=== PATIENT | female | born 1945 | race Caucasian/White ===

== ENCOUNTER 2017-12-30 19:28 | Inpatient (IN) | payer MEDICARE, OTHER ==
[~2017-12-30] VITALS: Ht 165.1 cm; Wt 131.1 kg
[2017-12-30] MEDS ORDERED: ACETAMINOPHEN 325 MG TAB PO ONE (20:15)
[2017-12-30] MEDS ORDERED: SODIUM CHLORIDE 0.9% 1000ML 1,000 ML IV ONE (20:15)
[2017-12-30] MEDS ORDERED: CEFTRIAXONE SOD 1 GM VIAL IV ONE (20:15)
--- NOTE | 2017-12-30 22:50 | Diagnostic Imaging Report ---
CHEST SINGLE (PORTABLE), 12/30/2017 8:07 PM Technique: CHEST SINGLE (PORTABLE) Comparison: 05/18/2017 Clinical history: Fever Findings: Stable cardiomediastinal silhouette given mild right rotation. Stable prominent central interstitial markings. No consolidation, pleural effusion or pneumothorax. Chronic left proximal humeral deformity. Impression: Stable chest without acute abnormality. Signed by: Dr Rosalia Chris MD on 12/30/2017 10:46 PM
[2017-12-30 23:38] LABS: BASOPHILS # (AUTO) 0.1 (0.0-0.1); BASOPHILS % 0.4 % (0.0-1.0); EOSINOPHILS % 0.2 % (0.0-6.0); HEMATOCRIT 47.3 % (34.2-44.1); HEMOGLOBIN 15.7 g/dL (12.0-16.0); LYMPHOCYTES # (AUTO) 0.8 (1.0-3.2); LYMPHOCYTES % 5.3 % (18.0-39.1); MEAN CORPUSCULAR HEMOGLOBIN 29.8 pg (28-32); MEAN CORPUSCULAR HGB CONC 33.2 g/dL (31-35); MEAN CORPUSCULAR VOLUME 89.9 fL (81-99); MONOCYTES # (AUTO) 1.4 (0.2-0.8); MONOCYTES % 9.5 % (4.4-11.3); NEUTROPHILS # (AUTO) 12.7 (2.1-6.9); PLATELET COUNT 126 x10e3/uL (140-360); RED BLOOD COUNT 5.26 x10e6/uL (3.6-5.1); RED CELL DISTRIBUTION WIDTH 14.2 % (11.7-14.4)
[2017-12-30 23:56] LABS: ALANINE AMINOTRANSFERASE 29 IU/L (0-55); ALBUMIN 3.5 g/dL (3.5-5.0); ALBUMIN/GLOBULIN RATIO 0.9 (0.8-2.0); ALKALINE PHOSPHATASE 83 IU/L (40-150); ANION GAP 17.1 mmol/L (8-16); BLOOD UREA NITROGEN 20 mg/dL (7-26); BUN/CREATININE RATIO 26 (6-25); CALCIUM 9.9 mg/dL (8.4-10.2); CARBON DIOXIDE 25 mmol/L (22-29); CHLORIDE 101 mmol/L (98-107); CREATINE KINASE 21 IU/L (29-168); CREATININE, SERUM 0.76 mg/dL (0.57-1.11); EST GLOMERULAR FILTRATION RATE > 60 ML/MIN (60-); GLUCOSE 125 mg/dL (74-118); POTASSIUM 4.1 mmol/L (3.5-5.1); SODIUM 139 mmol/L (136-145)
[2017-12-31] MEDS ORDERED: ACETAMINOPHEN 325 MG TAB ONE (00:43)
[2017-12-31] MEDS ORDERED: CEFTRIAXONE SOD 1 GM VIAL ONE (00:43)
[2017-12-31] MEDS ORDERED: TYLENOL325 MG PO (01:03)
[2017-12-31] MEDS ORDERED: DIVALPROEX SOD500 M1 PO (01:03)
[2017-12-31] MEDS ORDERED: ULTRAM50 MG PO (01:03)
[2017-12-31] MEDS ORDERED: LEVOTHYROXINE112 MCG PO (01:03)
[2017-12-31] MEDS ORDERED: CYMBALTA30 MG (01:03)
[2017-12-31] MEDS ORDERED: KLOR-CON M2020 MEQ PO (01:03)
[2017-12-31] MEDS ORDERED: GABAPENTIN300 MG PO (01:03)
[2017-12-31] MEDS ORDERED: FUROSEMIDE40 MG PO (01:03)
[2017-12-31] MEDS ORDERED: DIAZEPAM5 MG PO (01:03)
[2017-12-31] MEDS ORDERED: BENADRYL25 M1 PO (01:03)
[2017-12-31] MEDS ORDERED: LEVSIN0.125 MG PO (01:03)
[2017-12-31] MEDS ORDERED: SODIUM CHLORIDE 0.9% 1000ML 1,000 ML IV ONE (01:15)
[2017-12-31 02:55] LABS: BILIRUBIN,URINE 1+ (NEGATIVE); CLARITY,URINE CLEAR (CLEAR); COLOR,URINE YELLOW (YELLOW); KETONES,URINE 2+ (NEGATIVE); LEUKOCYTE ESTERASE ,URINE TRACE (NEGATIVE); NITRITE,URINE NEGATIVE (NEGATIVE); URINE UROBILINOGEN 12 mg/dL (0.2 - 1)
[2017-12-31 02:57] LABS: PROTEIN,URINE DIPSTICK TRACE (NEGATIVE)
[2017-12-31 03:11] LABS: WBC,URINE (MAN) 0-5 /HPF (0-5)
[2017-12-31 03:12] LABS: BACTERIA,URINE RARE /HPF; EPITHELIAL CELLS,URINE RARE /LPF; RBC,URINE 0-5 /HPF (0-5)
[2017-12-31] MEDS ORDERED: ONDANSETRON HCL INJ 2 MG/ML VIAL IV PRN (03:30)
[2017-12-31] MEDS: PIPER-TAZ 3.375 GM 50 ML IV SCH ×4 (03:30→23:05)
--- OUTSIDE RECORDS SUMMARY | 2017-12-31 03:37 | XMS REPORT ---
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 Allergies, Adverse Reactions, Alerts This patient has no known allergies or adverse reactions. Medications This patient has no known medications. Results Test Description Test Time Test Comments Text Results Atomic Results Result Comments CHEST SINGLE (PORTABLE) [place] [id number] Patient Name: EMORY ANDRES MR #: [id number] : 1945 Age/Sex: 72/F Req #: [id number] Adm Physician: Ordered by: YAMIL OLSON MD Report #: [id number] Location: ER Room/Bed: ___ Procedure: [id number] DX/CHEST SINGLE (PORTABLE) Exam Date: 12/30/17 Exam Time: 2151 REPORT STATUS: Signed CHEST SINGLE (PORTABLE), 12/30/2017 8:07 PM Technique: CHEST SINGLE (PORTABLE) Comparison: 05/18/2017 Clinical history: Fever Findings: Stable cardiomediastinal silhouette given mild right rotation. Stable prominent central interstitial markings. No consolidation, pleural effusion or pneumothorax. Chronic left proximal humeral deformity. Impression: Stable chest without acute abnormality. Signed by: Dr Lesia Chris MD on 12/30/2017 10:46 PM Dictated By: LESIA CHRIS MD 45 Transcribed By: MARK on 12/30 COPY TO: YAMIL OLSON MD
[2017-12-31] MEDS: SODIUM CHLORIDE 0.9% 1000ML 1,000 ML IV SCH ×3 (03:53→23:05)
[2017-12-31] MEDS: VANCOMYCIN 1GM/NS 250 ML 250 ML IV SCH ×2 (03:53→14:49)
[2017-12-31] MEDS: TRAMADOL HCL 50 MG TAB PO SCH (09:00)
[2017-12-31] MEDS: DIAZEPAM 5 MG TAB PO SCH ×3 (09:00→23:05)
[2017-12-31] MEDS: DIPHENHYDRAMINE HCL 25 MG CAP PO SCH (09:00)
[2017-12-31] MEDS: DULOXETINE HCL 30 MG DELAYED RELEASE PO SCH (09:00)
[2017-12-31] MEDS: DEPAKOTE DELAYED-RELEASE TAB 500 MG PO SCH ×2 (09:00→17:10)
[2017-12-31] MEDS: ACETAMINOPHEN 325 MG TAB PO SCH ×3 (09:00→23:05)
[2017-12-31] MEDS: GABAPENTIN 300 MG CAP PO SCH ×2 (09:00→17:10)
[2017-12-31] MEDS: LEVOTHYROXINE SODIUM 25 MCG TABLET PO SCH (09:00)
[2017-12-31] MEDS ORDERED: FUROSEMIDE 40 MG TAB PO SCH (09:00)
[2017-12-31] MEDS: LEVOTHYROXINE SODIUM 112 MCG TAB PO SCH (09:00)
[2017-12-31] MEDS: POTASSIUM CHLORIDE 20 MEQ TAB CR PO SCH (09:01)
[2017-12-31] MEDS: HYOSCYAMINE 0.125 MG TAB PO SCH ×4 (09:07→23:35)
--- NOTE | 2017-12-31 09:24 | History and Physical ---
PRIMARY CARE PHYSICIAN: Unknown CHIEF COMPLAINT: Weakness. HISTORY OF PRESENT ILLNESS: The patient is a very poor historian and unable to provide any history. All history has been obtained from the medical records from the emergency room. This is a 72-year-old woman who developed severe weakness. She felt lightheaded, generalized weakness. The patient has had similar symptoms in the past. Here the patient was found to have leukocytosis, lactic acidosis. She was found to have weakness. She was found to have leukocytosis. She was also found to have left leg redness and history of cellulitis. She is admitted for further evaluation and management. PAST MEDICAL HISTORY: Rheumatoid arthritis, neuropathy, epilepsy, lymphedema, peripheral vascular disease, venous stasis, pneumonia, sepsis, fracture of the humeral neck, urinary tract infection, mental disorder, cerebrovascular accident, morbid obesity, hypothyroidism, Lasix use. PAST SURGICAL HISTORY: Neck surgery. ALLERGIES: PER ELECTRONIC MEDICAL RECORD. FAMILY HISTORY/SOCIAL HISTORY: Unknown. MEDICATIONS: Per electronic medical record. REVIEW OF SYSTEMS: Unobtainable. PHYSICAL EXAMINATION VITAL SIGNS: Have been reviewed. GENERAL: A tired-appearing woman resting in bed. HEENT: Anicteric. CARDIOVASCULAR: Normal S1 and S2. LUNGS: Moderate breath sounds. No wheezing. ABDOMEN: Soft, nontender and nondistended. EXTREMITIES: She has 1+ edema and erythema of the left leg with mild tenderness. SKIN: Dry. PSYCHIATRIC: Flat affect. NEUROLOGIC: Awake but confused. LABS: Reviewed. MEDICATIONS: Reviewed. ASSESSMENT AND PLAN: This is a 72-year-old woman with: 1. Left leg cellulitis: Will treat with antibiotics. Will follow up cultures. 2. Physical deconditioning: Will consult physical therapy. 3. Severe sepsis with leukocytosis, tachycardia, fever, as well as mental status changes: Will treat with antibiotics. Rehydrate and follow up cultures. 4. Epilepsy: Restart home medications. 5. Hypothyroidism: Restart Synthroid. 6. Morbid obesity: Body mass index is 46.8. Will screen for diabetes and obtain a lipid panel. 7. Hyperglycemia: Obtain hemoglobin A1c. 8. Prophylaxis: Use heparin and Pepcid. 9. Disposition: Continue intravenous vancomycin and intravenous Zosyn. Obtain vancomycin trough before the 3rd dose. The patient is also on Lasix orally. Will monitor renal function. Job#: [id number] KASI
[2017-12-31 09:48] LABS: CHOL/HDL RATIO 3.4 (3.0-3.6)
[2017-12-31 21:07] VITALS: BP 143/65
[2017-12-31 22:30] VITALS: BP 143/65
[2018-01-01] MEDS: HYOSCYAMINE 0.125 MG TAB PO SCH ×6 (02:35→21:03)
[2018-01-01] MEDS: TRAMADOL HCL 50 MG TAB PO SCH ×2 (02:38→09:26)
[2018-01-01] MEDS: VANCOMYCIN 1GM/NS 250 ML 250 ML IV SCH ×2 (03:10→15:30)
[2018-01-01] MEDS: SODIUM CHLORIDE 0.9% 1000ML 1,000 ML IV SCH (03:27)
[2018-01-01] MEDS: LEVOTHYROXINE SODIUM 25 MCG TABLET PO SCH (05:37)
[2018-01-01] MEDS: LEVOTHYROXINE SODIUM 112 MCG TAB PO SCH (05:38)
[2018-01-01] MEDS: PIPER-TAZ 3.375 GM 50 ML IV SCH ×3 (05:38→21:03)
[2018-01-01 06:24] LABS: BASOPHILS % 0.3 % (0.0-1.0); EOSINOPHILS # (AUTO) 0.1 (0.0-0.4); EOSINOPHILS % 1.2 % (0.0-6.0); HEMATOCRIT 37.8 % (34.2-44.1); HEMOGLOBIN 12.1 g/dL (12.0-16.0); LYMPHOCYTES # (AUTO) 1.4 (1.0-3.2); LYMPHOCYTES % 21.8 % (18.0-39.1); MEAN CORPUSCULAR HEMOGLOBIN 29.6 pg (28-32); MEAN CORPUSCULAR VOLUME 92.4 fL (81-99); MONOCYTES # (AUTO) 0.9 (0.2-0.8); NEUTROPHILS # (AUTO) 4.1 (2.1-6.9); NEUTROPHILS % 62.1 % (38.7-80.0); PLATELET COUNT 92 x10e3/uL (140-360); RED BLOOD COUNT 4.09 x10e6/uL (3.6-5.1)
[2018-01-01 06:52] LABS: ALANINE AMINOTRANSFERASE 18 IU/L (0-55); ALBUMIN 2.4 g/dL (3.5-5.0); ALBUMIN/GLOBULIN RATIO 0.8 (0.8-2.0); ALKALINE PHOSPHATASE 58 IU/L (40-150); ANION GAP 12.6 mmol/L (8-16); BLOOD UREA NITROGEN 15 mg/dL (7-26); BUN/CREATININE RATIO 25 (6-25); CALCIUM 8.6 mg/dL (8.4-10.2); CARBON DIOXIDE 25 mmol/L (22-29); CHLORIDE 106 mmol/L (98-107); EST GLOMERULAR FILTRATION RATE > 60 ML/MIN (60-); GLUCOSE 99 mg/dL (74-118); POTASSIUM 3.6 mmol/L (3.5-5.1); SODIUM 140 mmol/L (136-145)
[2018-01-01 07:53] VITALS: BP 107/53
--- NOTE | 2018-01-01 08:29 | Progress Note ---
DATE: January 01, 2018 TIME: 7:30 a.m. OVERNIGHT: Feeling a little better. REVIEW OF SYSTEMS: Denies any dizziness. PHYSICAL EXAMINATION VITAL SIGNS: Reviewed. GENERAL: A tired-appearing woman resting in bed. HEENT: Anicteric. CARDIOVASCULAR: Normal S1 and S2. LUNGS: Moderate breath sounds. ABDOMEN: Soft, nontender and nondistended. EXTREMITIES: One to 2+ leg edema bilaterally. Erythema of the left foreleg is improving. SKIN: Dry. PSYCHIATRIC: Flat affect. NEUROLOGICAL: Awake but confused. LABS: Reviewed. MEDICATIONS: Reviewed. ASSESSMENT: A 72-year-old woman with: 1. Left leg cellulitis. 2. Physical deconditioning. 3. Severe sepsis. 4. Epilepsy. 5. Hypothyroidism. 6. Morbid obesity. 7. Hyperglycemia. Hemoglobin A1c 5.4. PLAN 1. Continue antibiotics. 2. Vancomycin trough 7.5. Will continue current regimen. 3. Follow up cultures. 4. Continue Synthroid and other medications. 5. Continue physical therapy. 6. Obtain labs. Job#: [id number] NC
[2018-01-01] MEDS: DIPHENHYDRAMINE HCL 25 MG CAP PO SCH (09:00)
[2018-01-01 09:26] VITALS: BP 107/53
[2018-01-01] MEDS: DULOXETINE HCL 30 MG DELAYED RELEASE PO SCH (09:26)
[2018-01-01] MEDS: DIAZEPAM 5 MG TAB PO SCH ×3 (09:26→20:46)
[2018-01-01] MEDS: GABAPENTIN 300 MG CAP PO SCH ×2 (09:26→16:40)
[2018-01-01] MEDS: DEPAKOTE DELAYED-RELEASE TAB 500 MG PO SCH ×2 (09:26→16:40)
[2018-01-01] MEDS: ACETAMINOPHEN 325 MG TAB PO SCH ×3 (09:26→20:46)
[2018-01-01] MEDS: POTASSIUM CHLORIDE 20 MEQ TAB CR PO SCH (09:36)
[2018-01-01 11:38] VITALS: BP 123/60
[2018-01-01 15:35] VITALS: BP 116/60
[2018-01-01 20:00] VITALS: BP 135/73
[2018-01-01 20:55] VITALS: BP 135/73
[2018-01-01] MEDS ORDERED: DIPHENHYDRAMINE HCL 25 MG CAP PO SCH (21:00)
[2018-01-02 00:46] VITALS: BP 136/73
[2018-01-02] MEDS: HYOSCYAMINE 0.125 MG TAB PO SCH ×3 (02:45→10:00)
[2018-01-02] MEDS: VANCOMYCIN 1GM/NS 250 ML 250 ML IV SCH (03:03)
[2018-01-02] MEDS: TRAMADOL HCL 50 MG TAB PO SCH ×2 (04:24→09:13)
[2018-01-02 05:37] VITALS: BP 149/69
[2018-01-02] MEDS: LEVOTHYROXINE SODIUM 25 MCG TABLET PO SCH (06:27)
[2018-01-02] MEDS: PIPER-TAZ 3.375 GM 50 ML IV SCH (06:27)
[2018-01-02] MEDS: LEVOTHYROXINE SODIUM 112 MCG TAB PO SCH (06:27)
[2018-01-02 07:33] VITALS: BP 144/63
[2018-01-02] MEDS ORDERED: LEVAQUIN500 MG PO (07:55)
[2018-01-02] MEDS ORDERED: MINOCYCLINE HCL50 MG PO (07:55)
[2018-01-02] MEDS: DULOXETINE HCL 30 MG DELAYED RELEASE PO SCH (09:13)
[2018-01-02] MEDS: DIAZEPAM 5 MG TAB PO SCH (09:13)
[2018-01-02] MEDS: POTASSIUM CHLORIDE 20 MEQ TAB CR PO SCH (09:13)
[2018-01-02] MEDS: DEPAKOTE DELAYED-RELEASE TAB 500 MG PO SCH (09:13)
[2018-01-02] MEDS: GABAPENTIN 300 MG CAP PO SCH (09:13)
[2018-01-02] MEDS: ACETAMINOPHEN 325 MG TAB PO SCH (09:13)
[2018-01-02 10:03] VITALS: BP 144/63
[2018-01-02] MEDS ORDERED: HYOSCYAMINE 0.125 MG TAB PO PRN (11:45)
[2018-01-02 12:05] VITALS: BP 133/68
== END 2018-01-02 13:26 | disposition home or self-care (01) | DRG 872 ==
LOC: ER 19:28 → ERHOLD 12-31 03:34 → MED/SURG2 12-31 20:54
PROVIDERS: ADMIT Internal Medicine; ATTEND Internal Medicine
DX: A41.9 Sepsis, unspecified organism (principal); L03.116 Cellulitis of left lower limb; Z68.42 Body mass index [BMI] 45.0-49.9, adult; G40.909 Epilepsy, unspecified, not intractable, without status epilepticus; E66.01 Morbid (severe) obesity due to excess calories; R73.9 Hyperglycemia, unspecified; R65.20 Severe sepsis without septic shock; M06.9 Rheumatoid arthritis, unspecified; Z86.73 Personal history of transient ischemic attack (TIA), and cerebral infarction without residual deficits; E03.9 Hypothyroidism, unspecified; I73.9 Peripheral vascular disease, unspecified
CPT/HCPCS: 36415; 71045; 80053; 80061; 80202; 81001; 82550; 82553; 83036; 83605; 84484; 85025; 87040; 87086; 93005; 97139; 99284; J0696; J2543; J3370; J7030

== ENCOUNTER 2018-01-16 20:16 | Inpatient (IN) | payer MEDICARE, OTHER ==
[~2018-01-16] VITALS: Ht 165.1 cm; Wt 110.7 kg
[~2018-01-16 20:16] MED LIST: BENADRYL25 M1 PO; CYMBALTA30 MG PO; DIAZEPAM5 MG PO; DIVALPROEX SOD500 M1 PO; FUROSEMIDE40 MG PO; GABAPENTIN300 MG PO; KLOR-CON M2020 MEQ PO; LEVAQUIN500 MG PO; LEVOTHYROXINE112 MCG PO; LEVSIN0.125 MG PO; MINOCYCLINE HCL50 MG PO; TYLENOL325 MG PO; ULTRAM50 MG PO
--- OUTSIDE RECORDS SUMMARY | 2018-01-16 20:19 | XMS REPORT | Continuity of Care Document ---
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 No 12/31/17 10:00pm If yes, is advance directive on file with [facility]? No 12/31/17 10:00pm If not on file with [facility] will patient provide a copy? No 12/31/17 10:00pm Do you have a Directive to Physician? No 12/30/17 8:58pm Do you have a Medical Power of Insurance Auditor? No 12/30/17 8:58pm Do you have an out of hospital Do Not Resuscitate Order? No 12/30/17 8:58pm Do you have any special needs we should be aware of? No 12/30/17 8:58pm Do you have a support person here with you today? Yes 12/30/17 8:58pm Did patient receive Notice of Privacy Practices? Yes 12/30/17 8:58pm Did patient receive patient rights and responsibilities? Yes 12/30/17 8:58pm Problems Medical Problem Onset Date Status Cellulitis of left lower leg Unknown Laceration Unknown Acute Medications Current Home Medications Medication Dose Units Route Directions Days Qty Instructions Start Date Acetaminophen (Tylenol*) 325 Mg Tablet 500 Mg Oral Three Times A Day Diazepam 5 Mg Tablet 5 Mg Oral Three Times A Day 30 Tab Diphenhydramine Hcl (Benadryl) 25 Mg Capsule 25 Mg Oral Daily Divalproex Sodium (Divalproex Sodium Er) 500 Mg Tab.er.24h 500 Mg Oral Twice A Day Duloxetine Hcl (Cymbalta) 30 Mg Capsule.dr 60 Mg Daily 30 Cap Furosemide 40 Mg Tablet 40 Mg Oral Daily 30 Tab Gabapentin 300 Mg Capsule 300 Mg Oral Twice A Day 60 Cap Hyoscyamine Sulfate (Levsin) 0.125 Mg Tablet 0.125 Mg Oral Every 4 Hours Levofloxacin (Levaquin) 500 Mg Tablet 500 Mg Oral Daily 7 Days Levothyroxine Sodium 112 Mcg Tablet 137 Mcg Oral Daily 30 Tab Minocycline Hcl 50 Mg Capsule 100 Mg Oral Twice A Day 20 Tab Potassium Chloride (Klor-Con M20) 20 Meq Tabcr 20 Meq Oral Daily Tramadol Hcl (Ultram) 50 Mg Tablet 50 Mg Oral Daily Social History Social History Problem Response Recorded Date/Time Onset Date Status Hx Psychiatric Problems Y - Mental Disorder 12/31/2017 10:00pm Not Applicable Not Applicable Hx Eating Disorder No 12/31/2017 10:00pm Not Applicable Not Applicable Hx Substance Use Disorder No 12/31/2017 10:00pm Not Applicable Not Applicable Hx Depression Yes 12/31/2017 10:00pm Not Applicable Not Applicable Hx Alcohol Use No 12/31/2017 10:00pm Not Applicable Not Applicable Hx Substance Use Treatment No 12/31/2017 10:00pm Not Applicable Not Applicable Hx Physical Abuse No 12/31/2017 10:00pm Not Applicable Not Applicable Smoking Status Start Date Stop Date Never Smoker Hospital Discharge Instructions No hospital discharge instruction information available. Plan of Care Discharge Date 01/02/18 1:26pm Disposition HOME, SELF-CARE Instructions/Education Provided Cellulitis Prescriptions See Medication Section Referrals PCP (Internal Medicine) Order Date: 5-7 Days Entered Date: 01/02/2018 7:55am Functional Status Query Response Date Recorded FUNCTIONAL STATUS . January 01, 2018 12:40pm Assistive Devices Standard Walker December 31, 2017 10:30pm Ambulation Ability Maximum Assistance December 31, 2017 10:30pm Toileting Ability Maximum Assistance January 02, 2018 12:49pm Allergies, Adverse Reactions, Alerts No known allergies. Immunizations No immunization information available. Vital Signs Acute Vital Signs Vital Response Date/Time Temperature (Fahrenheit) 97.2 degrees F (97.6 - 99.5) 01/02/2018 12:05pm Pulse Pulse Rate (adult) 77 bpm (60 - 90) 01/02/2018 12:05pm Respiratory Rate 20 bpm (12 - 24) 01/02/2018 12:05pm Blood Pressure 133/68 mm Hg 01/02/2018 12:05pm Height 5 ft 5 in 12/31/2017 10:00pm Weight 289.03 lb 01/01/2018 5:14am Body Mass Index 48.1 kg/m^2 01/01/2018 5:14am Results Laboratory Results Test Name Result Units Flags Reference Collection Date/Time Result Date/ Time Comments D-Dimer Quantitative (PE/DVT) 1.49 ug/mLFEU H 0.00-0.45 05/18/2017 3: 20pm 05/18/2017 5:07pm As with all in vitro diagnostic tests, the test results should be interpreted by the physician in conjunction with clinical findings and other test results. Test results are reported in NEW D-dimer units(ug/mLFEU). White Blood Count 6.57 x10e3/uL # 4.8-10.8 01/01/2018 6:03am 01/01/2018 6 :53am Red Blood Count 4.09 x10e6/uL 3.6-5.1 01/01/2018 6:03am 01/01/2018 6: 53am Hemoglobin 12.1 g/dL 12.0-16.0 01/01/2018 6:03am 01/01/2018 6:53am Hematocrit 37.8 % 34.2-44.1 01/01/2018 6:03am 01/01/2018 6:53am Mean Corpuscular Volume 92.4 fL 81-99 01/01/2018 6:03am 01/01/2018 6: 53am Mean Corpuscular Hemoglobin 29.6 pg 28-32 01/01/2018 6:03am 01/01/2018 6:53am Mean Corpuscular Hemoglobin Concent 32.0 g/dL 31-35 01/01/2018 6:03am 01/01/2018 6:53am Red Cell Distribution Width 14.0 % 11.7-14.4 01/01/2018 6:03am 2017 6:53am Platelet Count 92 x10e3/uL L 140-360 01/01/2018 6:03am 01/01/2018 6: 53am Neutrophils (%) (Auto) 62.1 % 38.7-80.0 01/01/2018 6:03am 01/01/2018 6: 53am Lymphocytes (%) (Auto) 21.8 % 18.0-39.1 01/01/2018 6:03am 01/01/2018 6: 53am Monocytes (%) (Auto) 14.0 % H 4.4-11.3 01/01/2018 6:03am 01/01/2018 6: 53am Eosinophils (%) (Auto) 1.2 % 0.0-6.0 01/01/2018 6:03am 01/01/2018 6: 53am Basophils (%) (Auto) 0.3 % 0.0-1.0 01/01/2018 6:03am 01/01/2018 6:53am IM GRANULOCYTES % 0.6 % 0.0-1.0 01/01/2018 6:03am 01/01/2018 6:53am Neutrophils # (Auto) 4.1 2.1-6.9 01/01/2018 6:03am 01/01/2018 6:53am Lymphocytes # (Auto) 1.4 1.0-3.2 01/01/2018 6:03am 01/01/2018 6:53am Monocytes # (Auto) 0.9 H 0.2-0.8 01/01/2018 6:03am 01/01/2018 6:53am Eosinophils # (Auto) 0.1 0.0-0.4 01/01/2018 6:03am 01/01/2018 6:53am Basophils # (Auto) 0.0 0.0-0.1 01/01/2018 6:03am 01/01/2018 6:53am Absolute Immature Granulocyte (auto 0.04 x10e3/uL 0-0.1 01/01/2018 6: 03am 01/01/2018 6:53am Urine Color YELLOW YELLOW 12/31/2017 1:00am 12/31/2017 2:57am Urine Clarity CLEAR CLEAR 12/31/2017 1:00am 12/31/2017 2:57am Urine Specific Social Circle 1.010 1.010-1.025 12/31/2017 1:00am 2017 2:57am Urine pH 7 5 - 7 12/31/2017 1:00am 12/31/2017 2:57am Urine Leukocyte Esterase TRACE H NEGATIVE 12/31/2017 1:00am 2017 2:57am Urine Nitrite NEGATIVE NEGATIVE 12/31/2017 1:00am 12/31/2017 2:57am Urine Protein TRACE H NEGATIVE 12/31/2017 1:00am 12/31/2017 2:57am Urine Glucose (UA) NEGATIVE NEGATIVE 12/31/2017 1:00am 12/31/2017 2: 57am Urine Ketones 2+ H NEGATIVE 12/31/2017 1:00am 12/31/2017 2:57am Urine Urobilinogen 12 mg/dL H 0.2 - 1 12/31/2017 1:00am 12/31/2017 2: 57am Urine Bilirubin 1+ H NEGATIVE 12/31/2017 1:00am 12/31/2017 2:57am Urine Blood NEGATIVE NEGATIVE 12/31/2017 1:00am 12/31/2017 2:57am Urine WBC 0-5 /HPF 0-5 12/31/2017 1:00am 12/31/2017 3:12am Urine RBC 0-5 /HPF 0-5 12/31/2017 1:00am 12/31/2017 3:12am Urine Bacteria RARE /HPF NONE 12/31/2017 1:00am 12/31/2017 3:12am Urine Epithelial Cells RARE /LPF NONE 12/31/2017 1:00am 12/31/2017 3: 12am Sodium Level 140 mmol/L 136-145 01/01/2018 6:03am 01/01/2018 6:53am Potassium Level 3.6 mmol/L 3.5-5.1 01/01/2018 6:03am 01/01/2018 6:53am Chloride Level 106 mmol/L 98-107 01/01/2018 6:03am 01/01/2018 6:53am Carbon Dioxide Level 25 mmol/L -01/01/2018 6:03am 01/01/2018 6: 53am Anion Gap 12.6 mmol/L 8-16 01/01/2018 6:03am 01/01/2018 6:53am Blood Urea Nitrogen 15 mg/dL -01/01/2018 6:03am 01/01/2018 6:53am Creatinine 0.60 mg/dL 0.57-1.11 01/01/2018 6:03am 01/01/2018 6:53am BUN/Creatinine Ratio 25 6-01/01/2018 6:03am 01/01/2018 6:53am Estimat Glomerular Filtration Rate > 60 ML/MIN 60- 01/01/2018 6:03am 6:53am Ranges were taken from the National Kidney Disease Education Program and the National Kidney Foundation literature. Reference ranges: 60 or greater: Normal 16-59 (for 3 consecutive months): Chronic kidney disease 15 or less: Kidney failure Glucose Level 99 mg/dL 74-118 01/01/2018 6:03am 01/01/2018 6:53am Calcium Level 8.6 mg/dL 8.4-10.2 01/01/2018 6:03am 01/01/2018 6:53am Hemoglobin A1c Percent 5.4 % 4.0-7.0 12/31/2017 9:15am 12/31/2017 9: 40am Lactic Acid Level 22.8 MG/DL H 4.5-19.8 12/31/2017 3:52am 12/31/2017 4: 28am Total Bilirubin 0.5 mg/dL 0.2-1.2 01/01/2018 6:03am 01/01/2018 6:53am Aspartate Amino Transf (AST/SGOT) 26 IU/L 5-34 01/01/2018 6:03am 2017 6:53am Alanine Aminotransferase (ALT/SGPT) 18 IU/L 0-55 01/01/2018 6:03am 6:53am Total Protein 5.3 g/dL # L 6.5-8.1 01/01/2018 6:03am 01/01/2018 6:53am Albumin 2.4 g/dL L 3.5-5.0 01/01/2018 6:03am 01/01/2018 6:53am Globulin 2.9 g/dL 2.3-3.5 01/01/2018 6:03am 01/01/2018 6:53am Albumin/Globulin Ratio 0.8 0.8-2.0 01/01/2018 6:03am 01/01/2018 6: 53am Alkaline Phosphatase 58 IU/L 40-150 01/01/2018 6:03am 01/01/2018 6: 53am Triglycerides Level 85 MG/DL 0-149 12/31/2017 9:15am 12/31/2017 9:49am Cholesterol Level 141 MD/DL 0-199 12/31/2017 9:15am 12/31/2017 9:49am Less than 200 mg/dL Low Risk 201 - 239 mg/dL Borderline Risk 240 mg/dl and greater High Risk LDL Cholesterol 83 MG/DL 60-130 12/31/2017 9:15am 12/31/2017 9:49am HDL Cholesterol 41 MG/DL 40-60 12/31/2017 9:15am 12/31/2017 9:49am Cholesterol/HDL Ratio 3.4 3.0-3.6 12/31/2017 9:15am 12/31/2017 9: 49am Creatine Kinase 21 IU/L L 29-168 12/30/2017 11:10pm 12/30/2017 11:57pm Creatine Kinase MB 0.30 ng/mL 0-5.0 12/30/2017 11:10pm 12/31/2017 12: 12am Troponin I < 0.001 ng/mL 0-0.300 12/30/2017 11:10pm 12/31/2017 12:12am Vancomycin Level Trough 7.5 ug/mL 5.0-10.0 01/01/2018 2:30am 2017 2:51am Microbiology Results Procedure Source Organism/Result Collection Date/Time Result Date/Time Result Status Blood Culture Blood NO GROWTH AFTER 48 HOURS 11:10pm 01/01/2018 11:27pm Preliminary Procedures Procedure Status Date Provider(s) RPR F/E/E/N/L/M 2.5 CM/< Completed 03/07/17 LAVELL RODRIGUEZ MD Computed tomography of brain without radiopaque contrast Active 03/07/17 LAVELL RODRIGUEZ MD Computed tomography of cervical spine without contrast Active 03/07/17 LAVELL RODRIGUEZ MD Encounters Encounter Location Arrival/Admit Date Discharge/Depart Date Attending Provider Discharged Inpatient [facility] 12/31/17 3:34am 01/02/18 1:26pm DARRELL ALBERT MD Departed Emergency Room [facility] 09/17/17 12:30pm 09/17 1:17pm SILAS WILLAMS MD Discharged Inpatient [facility] 05/18/17 4:45pm 05/19/17 10:23am YAYA CARTER MD Departed Emergency Room [facility] 03/07/17 11:20pm 03/08 1:47am LAVELL RODRIGUEZ MD
[2018-01-16] MEDS ORDERED: SODIUM CHLORIDE 0.9% 500ML 500 ML IV ONE (20:30)
[2018-01-16 21:10] LABS: BASOPHILS # (AUTO) 0.1 (0.0-0.1); BASOPHILS % 0.8 % (0.0-1.0); EOSINOPHILS # (AUTO) 0.2 (0.0-0.4); EOSINOPHILS % 2.4 % (0.0-6.0); HEMATOCRIT 48.1 % (34.2-44.1); HEMOGLOBIN 15.4 g/dL (12.0-16.0); LYMPHOCYTES # (AUTO) 1.9 (1.0-3.2); LYMPHOCYTES % 28.1 % (18.0-39.1); MEAN CORPUSCULAR HEMOGLOBIN 29.7 pg (28-32); MEAN CORPUSCULAR VOLUME 92.9 fL (81-99); MONOCYTES # (AUTO) 1.1 (0.2-0.8); MONOCYTES % 15.9 % (4.4-11.3); NEUTROPHILS # (AUTO) 3.4 (2.1-6.9); NEUTROPHILS % 52.2 % (38.7-80.0); PLATELET COUNT 135 x10e3/uL (140-360); RED BLOOD COUNT 5.18 x10e6/uL (3.6-5.1); RED CELL DISTRIBUTION WIDTH 14.3 % (11.7-14.4)
--- NOTE | 2018-01-16 21:21 | Diagnostic Imaging Report ---
EXAM: CHEST SINGLE (PORTABLE), AP 1 view INDICATION: Hypoxia, shortness of breath, high blood pressure COMPARISON: AP view of the chest December 30, 2017 FINDINGS: LINES/TUBES: None LUNGS: Mild perihilar atelectasis. PLEURA: No effusions or pneumothorax. HEART AND MEDIASTINUM: The heart is within normal size limits. Stable tortuosity of the thoracic aorta and enlargement of the main pulmonary arteries. BONES AND SOFT TISSUES: No acute findings. IMPRESSION: No significant interval change. Signed by: Dr. Dimple Paul M.D. on 01/16/2018 9:18 PM
[2018-01-16 21:30] LABS: ALANINE AMINOTRANSFERASE 31 IU/L (0-55); ALBUMIN 3.3 g/dL (3.5-5.0); ALBUMIN/GLOBULIN RATIO 0.8 (0.8-2.0); ALKALINE PHOSPHATASE 75 IU/L (40-150); ANION GAP 17.5 mmol/L (8-16); BLOOD UREA NITROGEN 24 mg/dL (7-26); BUN/CREATININE RATIO 30 (6-25); CALCIUM 9.7 mg/dL (8.4-10.2); CARBON DIOXIDE 28 mmol/L (22-29); CHLORIDE 102 mmol/L (98-107); CREATINE KINASE 21 IU/L (29-168); EST GLOMERULAR FILTRATION RATE > 60 ML/MIN (60-); GLUCOSE 129 mg/dL (74-118); POTASSIUM 4.5 mmol/L (3.5-5.1); SODIUM 143 mmol/L (136-145)
--- NOTE | 2018-01-16 22:52 | Diagnostic Imaging Report ---
EXAM: CT CHEST W INDICATION: Shortness of breath COMPARISON: None TECHNIQUE: Multidetector CT scanning of the chest was performed. Coronal and sagittal multiplanar reformations were obtained. PE protocol performed. IV Contrast: 100 cc Isovue-370 CTDIvol has been reviewed. It is below the limits set by the Radiation Protocol Committee (RPC). FINDINGS: LUNGS AND AIRWAYS: The trachea and major bronchi are unremarkable. Septal thickening and bilateral confluent ground glass opacities. PLEURA: No effusions or pneumothorax. HEART, MEDIASTINUM, VESSELS: The heart is within normal size limits. No abnormal pericardial effusion. No thoracic aortic aneurysm. No mediastinal mass or lymphadenopathy. No evidence of a pulmonary embolism. UPPER ABDOMEN: No acute findings. MUSCULOSKELETAL: No acute findings. IMPRESSION: 1. No evidence of a pulmonary embolism. 2. Mild pulmonary edema. Signed by: Dr. Dimple Paul M.D. on 01/16/2018 10:48 PM
[2018-01-16] MEDS ORDERED: SODIUM CHLORIDE 0.9% 50ML 50 ML ONE (22:53)
[2018-01-16] MEDS ORDERED: IOPAMIDOL 370 MG/ML 200 ML INFUS..BTL INJ ONE (22:53)
[2018-01-17] VITALS (9 sets, daily range): BP systolic 132–184; BP diastolic 64–84
[2018-01-17] MEDS ORDERED: GABAPENTIN300 MG PO (00:05)
[2018-01-17] MEDS ORDERED: CELEBREX100 MG PO (00:05)
[2018-01-17] MEDS: FUROSEMIDE INJ 10 MG/ML 2 ML VIAL IV SCH ×3 (01:00→17:45)
[2018-01-17] MEDS: ALBUTEROL/IPRATROPIUM 3 ML NEB NEB SCH ×5 (01:02→20:00)
[2018-01-17] MEDS: TRAMADOL HCL 50 MG TAB PO PRN ×3 (03:24→22:56)
[2018-01-17 08:06] LABS: CREATINE KINASE 15 IU/L (29-168)
--- NOTE | 2018-01-17 15:26 | Consultation ---
DATE OF CONSULTATION: January 17, 2018 PULMONARY MEDICINE CONSULT REFERRING PHYSICIAN: Dr. Monroe. REASON FOR REFERRAL: Abnormal chest radiography. HISTORY: Ms. Casey is a 72-year-old female with abnormal chest radiography. Patient came to the emergency room after having a fall. Her saturation was 91%. During evaluation, it was seen on chest x-ray that she has mild venous congestion with some left atelectasis versus pneumonitis. CT chest was done which demonstrated no evidence of pulmonary embolism on angiography, but patient had some mosaicism suggesting either mild pulmonary edema versus chronic interstitial changes. The presence of septal thickening and bilateral confluent ground-glass opacities probably creates a moderate amount of lung opacification. Patient is mostly bedbound, and her legs do not function very well due to mixed neurologic disorder. Patient with dysphagia at one point after C-spine surgery. It is also noted she has mild tremulousness and fasciculations. However, she denies any active coughing. She denies any active sensation of reflux. No asthma, no COPD. Possible mild allergies. Has a history of possible connective tissue disease although patient is a bad historian. Furthermore, on laboratory evaluation it is noted that her creatinine is normal, LFTs are unremarkable mostly with albumin 3.3 and globulins 4.0 mildly high but were previously normal. Urinalysis with no blood, no white cells. BNP level was less than 10. I am consulted to assist with evaluation and diagnostics. PAST MEDICAL HISTORY: Possible rheumatoid arthritis, neuropathy, epilepsy starting at age 49, lymphedema, peripheral vascular disease, venous stasis changes, urinary tract infections, cerebrovascular accident small, morbid obesity, hypothyroidism, history of C-spine fusion and dysphagia after she says, rectal prolapse, history of PEG temporarily that was taken out after C-spine fusion. MEDICATIONS: Home medication list reviewed per electronic record including celecoxib, diazepam, divalproex, duloxetine, Lasix 40 daily, gabapentin, hyoscyamine, levothyroxine, potassium chloride, tramadol. ALLERGIES: NO KNOWN DRUG ALLERGIES. SOCIAL HISTORY: No smoking, no drinking, no drugs. Patient was born in [place] and grew up in [place] and [place]. She lives in [place] for 13 years, and then she has been in [place] for the last 22 years. She is a 33-tzwa-z-week provider at this time. 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 FAMILY HISTORY: Noncontributory. REVIEW OF SYSTEMS: Limited as she is a very poor historian; so, mostly invalid. PHYSICAL EXAMINATION VITAL SIGNS: Currently afebrile now, other vitals per record. GENERALLY: In bed, talking but very circumferential. HEENT: Normocephalic, atraumatic. NECK: Supple. Throat midline. LUNGS: Bilateral air entry, limited, mostly clear. CARDIOVASCULAR: S1 and S2. No murmurs, rubs or gallops. ABDOMINAL: Soft, nontender. EXTREMITIES: No clubbing, no cyanosis. There is 2+ edema. INTEGUMENT: No rash, no purpura. NEUROLOGIC: Of note, exam with decreased proprioception in the feet, 3/5 weakness in the legs. Patient has hyperreflexia at the knees. Arms are slightly stronger. Fasciculations in the tongue and mouth. There is a mild resting tremor noted, hard to perceive unless focusing on it. LABS: Potassium 4.5, BUN 24, creatinine 0.8. White count 7, hematocrit 48, platelets 135. IMPRESSION AND PLAN 1. Abnormal chest radiography, chronic pneumonitis, probably chronic interstitial lung disease. 2. Possible acute pneumonia superimposed. 3. History of dysphagia and percutaneous endoscopic gastrotomy tube, now better. Probably multifactorial, but patient not a good historian. 4. History of cervical spine fusion. 5. Multi-ideologic neurologic syndrome as above. 6. History of seizures. 7. History of lymphedema. 8. Mainly bedbound status. 9. Obstructive sleep apnea reported. 10. Citation one time of rheumatoid arthritis in her chart. Screen for connective tissue diseases. Treat for acute pneumonia with antibiotics in the meantime. As patient keeps coming into the hospital, patient is expectant for bronchoscopy. Will follow along closely. Swallow evaluation is also reasonable. Continue oxygen for now and reassess her prior to going home for home oxygen. Thank you very much, Dr. Monroe, for allowing me the chance to participate in the care of Ms. Casey. Do not hesitate to contact me if I could help in any way. Job#: [id number] EV
[2018-01-17] MEDS ORDERED: DIAZEPAM 5 MG TAB PO PRN (15:30)
[2018-01-17] MEDS ORDERED: HYOSCYAMINE 0.125 MG TAB PO PRN (15:30)
[2018-01-17] MEDS ORDERED: ACETAMINOPHEN 325 MG TAB PO PRN ×2 (15:30→15:45)
--- NOTE | 2018-01-17 17:02 | History and Physical ---
HISTORY OF PRESENT ILLNESS: Caryn Casey is a 72-year-old female with past medical history apparently positive for hypertension, history of questionable diabetes, history of left CVA with right hemiparesis, wheelchair-bound. Patient apparently fell at home. She was found to have hypotension, low oxygen, tachycardia. The patient's called EMS and was sent to the ER. REVIEW OF SYSTEMS CARDIOVASCULAR: No chest pain or palpitation. RESPIRATORY: No shortness of breath. No cough. GASTROINTESTINAL: No nausea, vomiting or diarrhea. GENITOURINARY: No frequency, no dysuria. ALLERGIES: NOT ALLERGIC TO ANY MEDICATION. SOCIAL HISTORY: She does not smoke. She does not drink. PAST MEDICAL HISTORY: Positive for hypertension, diabetes, history of left CVA with right hemiparesis in the past which apparently she recovered completely. LABS: On the BMP, sodium 143, potassium 4.5, chloride 102, CO2 28, BUN 24, creatinine 0.80, glucose 129. On the CBC, white blood count 6.59, hemoglobin 15.4, hematocrit 48.1, platelet count 135,000, AST 46, ALT 31, total bilirubin 0.4, alkaline phos 75. PHYSICAL EXAMINATION VITAL SIGNS: Blood pressure 147/65, temperature 97.3, heart rate 88 per minute, temperature 97.3 degrees Fahrenheit, respiratory rate 16 per minute, oxygen saturation 93%. HEART: Regular rhythm. Normal S1 and S2 sounds. LUNGS: Clear bilaterally. ABDOMEN: Soft. EXTREMITIES: Show no evidence of cyanosis, edema or trauma. NEUROLOGIC: Alert and oriented x3. Motor strength is around 3/5 in upper extremities and 2/5 on both lower extremities. FINAL IMPRESSION: 1. hypertension. 2. Fall. 3. History of mild congestive heart failure. 4. Acute renal failure. 5. Diabetes mellitus type 2. 6. Wheelchair bound. 7. History of cerebrovascular accident without significant focal deficit. PLAN OF TREATMENT: Continue furosemide 20 mg IV twice a day, albuterol and Atrovent q.6 hours as needed for shortness of breath. We are going to resume home medications. We are going to discontinue because of high incidence of falls. We are going to get a neurology consult with Dr. Agarwal. We are going to get physical and occupational therapy evaluation in this patient that is wheelchair-bound and we are going to get a CT of the head. We are going to order an echocardiogram to evaluate ejection fraction also. We are going to do a BMP tomorrow to check on the electrolytes and the BUN and creatinine. Job#: [id number] DG
--- NOTE | 2018-01-17 17:22 | Diagnostic Imaging Report ---
Examination: CT head without contrast Clinical Indication: Fall. Head injury. Technique: Transaxial noncontrast images from the skull base through the vertex were obtained. Sagittal and coronal reformatted images were done. Comparison: Head CT performed March 07, 2017. Findings: Scalp: No abnormalities. Bones: Intact. No fractures. No blastic or lytic lesions. Brain sulci: Mild volume loss for patient's age. Ventricles: No hydrocephalus. Extra-axial space: No abnormalities. Parenchyma: There are confluent areas of low-attenuation within subcortical and periventricular white matter, nonspecific, but could represent microvascular ischemic disease. No masses, hemorrhage, or acute or chronic cortical based vascular insults. Suprasellar region: No abnormalities. Craniocervical junction: The foramen magnum is patent. No Chiari one malformation. Incidental findings: Atherosclerotic calcification of the cavernous and supraclinoid internal carotid arteries. Impression: 1. No new or acute intracranial finding. No change from prior head CT performed March 07, 2017. 2. Unchanged mild chronic microvascular ischemic change and mild volume loss. Signed by: Dr. Kay Colindres M.D. on 01/17/2018 5:19 PM
[2018-01-17 17:40] LABS: CREATINE KINASE 19 IU/L (29-168)
[2018-01-17] MEDS: DEPAKOTE ER 500MG TAB(ONCE DAILY) PO SCH (17:45)
[2018-01-17] MEDS: DULOXETINE HCL 30 MG DELAYED RELEASE PO SCH (17:45)
[2018-01-17] MEDS ORDERED: GABAPENTIN 300 MG CAP PO SCH (21:00)
[2018-01-18] VITALS (8 sets, daily range): BP systolic 121–152; BP diastolic 56–71
[2018-01-18] MEDS: ALBUTEROL/IPRATROPIUM 3 ML NEB NEB SCH ×3 (01:50→13:00)
[2018-01-18] MEDS: LEVOTHYROXINE SODIUM 112 MCG TAB PO SCH (06:00)
[2018-01-18] MEDS: LEVOTHYROXINE SODIUM 25 MCG TABLET PO SCH (06:00)
[2018-01-18] MEDS: DULOXETINE HCL 30 MG DELAYED RELEASE PO SCH ×2 (08:40→16:59)
[2018-01-18] MEDS: CELECOXIB 200 MG CAP PO SCH (08:40)
[2018-01-18] MEDS: FUROSEMIDE INJ 10 MG/ML 2 ML VIAL IV SCH ×2 (08:40→16:59)
[2018-01-18] MEDS: DEPAKOTE ER 500MG TAB(ONCE DAILY) PO SCH ×2 (08:40→16:59)
[2018-01-18] MEDS: TRAMADOL HCL 50 MG TAB PO SCH (08:41)
[2018-01-18] MEDS: POTASSIUM CHLORIDE 20 MEQ TAB CR PO SCH (08:41)
[2018-01-18] MEDS ORDERED: GABAPENTIN 300 MG CAP PO SCH (09:00)
[2018-01-18] MEDS ORDERED: LEVOTHYROXINE SODIUM 112 MCG TAB PO SCH (09:00)
[2018-01-18] MEDS ORDERED: CELECOXIB 100 MG CAP PO SCH (09:00)
[2018-01-18 09:21] LABS: CREATINE KINASE 13 IU/L (29-168)
[2018-01-18] MEDS ORDERED: NYSTATIN 15 GM POWDER UD BTL TOP PRN (11:15)
[2018-01-18] MEDS: GABAPENTIN 300 MG CAP PO SCH ×2 (16:59→21:10)
--- NOTE | 2018-01-18 17:28 | Consultation ---
DATE OF CONSULTATION: January 18, 2018 NEUROLOGY CONSULTATION HISTORY OF PRESENT ILLNESS: Ms. Casey is a 72-year-old woman with past medical history significant for hypertension, diabetes mellitus type 2, a prior stroke with residual dysarthria and right hemiparesis, and seizure disorder who presented to [facility] status post fall. The patient reports she was trying to transfer from her recliner to her wheelchair to use the restroom. The patient's describes the transfer process as follows: The patient stands from whatever chair she may be sitting in, holds onto a walker until the wheelchair can be brought up behind her so she may sit down. Unfortunately, in this instance, the wheelchair could not be placed behind the patient quickly enough. The patient's knees buckled and she fell to the ground. The patient's reports Ms. Casey has experienced multiple falls over the past 12 months; he estimates approximately 20 falls. All of her falls have occurred during the transfer process. Ms. Casey has not experienced any injuries as a result of these falls. Ms. Casey does report a diagnosis of peripheral neuropathy, possibly due to diabetes mellitus. The patient reports numbness over the soles and dorsum of the feet and forelegs as well as burning pain and pins and needles sensation in the same distribution. Ms. Casey endorses weakness in both legs as a result of the peripheral neuropathy as well. The patient does have a prior history of a left-sided stroke with residual dysarthria and right hemiparesis. REVIEW OF SYSTEMS: Hot flashes, dysarthria, weakness of the legs, numbness and tingling of feet and legs, impaired balance and gait, and multiple falls. Otherwise, the 12-point review of systems is negative. PAST MEDICAL HISTORY: Hypertension, possible diabetes mellitus, thyroid disease, anxiety disorder, prior history of migraines, prior left-sided stroke with residual dysarthria and right hemiparesis, and secondary seizure disorder. PAST SURGICAL HISTORY: Partial hysterectomy, oophorectomy, right carpal tunnel release, cholecystectomy, repair of rectal prolapse, tonsillectomy, two cervical spine surgeries, and cataract surgery. PAST HOSPITALIZATIONS: For surgeries and procedures listed, stroke, and multiple other hospitalizations. FAMILY HISTORY: The patient's paternal and maternal grandparents are . Their medical histories are not known. The patient's father is from coronary artery disease status post myocardial infarction. The patient's mother is . She had a history of migraines. Ms. Casey is not aware of any other significant family medical history. SOCIAL HISTORY: The patient is . She graduated from high school. She is retired. The patient does not report current or prior tobacco, alcohol, or recreational drug use. HOME MEDICATIONS: Acetaminophen 500 mg by mouth 3 times daily as needed for pain, Celebrex 200 mg by mouth daily, diazepam 5 mg by mouth 3 times daily as needed for anxiety, diphenhydramine 25 mg by mouth at bedtime, divalproex sodium ER 500 mg by mouth twice daily, duloxetine 60 mg by mouth twice daily, gabapentin 300 mg by mouth in the morning and 600 mg by mouth in the evening, Lasix 40 mg by mouth daily, hyoscyamine sulfate 0.25 mg by mouth every 4 hours as needed, levothyroxine 137 mcg by mouth daily, potassium chloride 20 mEq by mouth daily, and tramadol 50 mg by mouth daily. ALLERGIES: NO KNOWN DRUG ALLERGIES. NO KNOWN FOOD ALLERGIES. NO KNOWN ALLERGIES TO LATEX. NO KNOWN ALLERGIES TO IODINE OR OTHER CONTRAST MATERIALS. PHYSICAL EXAMINATION VITAL SIGNS: Height 65 inches, weight 242 pounds, BMI 40.3 kg/meter sq, blood pressure 121/56 mmHg, pulse 98 beats per minute, respiratory rate 16 breaths per minute, and oxygen saturation 98% on 2 liters by nasal cannula. GENERAL: The patient is awake and alert, does not appear distressed. Obese. HEENT: Normocephalic, atraumatic. Pupils are surgical. Moist mucous membranes. NECK: Supple. No appreciable thyromegaly. No appreciable carotid bruits. CARDIOVASCULAR: S1 and S2. Regular rate and rhythm. No murmurs, rubs, or gallops. RESPIRATORY: Clear to auscultation bilaterally. No wheezes, rhonchi, or rales appreciated. EXTREMITIES: The skin is warm and dry. No clubbing, cyanosis, or edema. The posterior tibial and dorsalis pedis pulses are 1+ and symmetric. SKIN: No rashes. Venostasis ulcerations noted over the forelegs. NEUROLOGIC: Memory/Attention: The patient is awake and alert, oriented to person, place, time, and situation. Cranial Nerves: Cranial nerve I-not tested. Cranial nerves II, III, IV, and -pupils are surgical, extraocular movements intact. No nystagmus. Cranial nerve V-sensation to light touch is diminished in the right V1 through V3 distributions. Sensation to pinprick is intact in the bilateral V1 through V3 distributions. Strength of the temporalis and masseter muscles was within normal limits. Cranial nerve VII-the face is slightly asymmetric on the right. Facial movements are symmetric. Strength is within normal limits. Cranial nerve VIII-hearing is diminished to finger rub bilaterally. Cranial nerve IX, X-the soft palate elevates equally and symmetrically. Cranial nerve XI-normal strength of the bilateral sternocleidomastoid and trapezius muscles. Cranial nerve XII-the tongue protrudes in the midline and moves symmetrically from side to side. Strength: Bulk is normal and strength is 4/5 in the bilateral deltoids, biceps, triceps, wrist flexors and extensors, finger flexors and extensors, and intrinsic hand muscles. The patient cannot lift either leg against gravity. Positive bilateral Ghotra sign. Tone is normal. DTRs: Deep tendon reflexes are 2+ and symmetric at the triceps, biceps, and brachioradialis. Deep tendon reflexes are 1+ and symmetric at the patellas. Deep tendon reflexes are trace and symmetric at the Achilles. Plantar responses are flexor bilaterally. Absent clonus. Sensation: Sensation is diminished to light touch over the left arm and right leg. Sensation to pinprick is diminished in a stocking distribution. Vibratory sensation is absent at the toes, ankles, and knees, diminished at the fingers, and intact at the wrists. Cerebellar: Uhmbtz-xlov-eqmjld maneuvers are intact without dysmetria or other impairment. The patient is unable to perform heel-negrete maneuvers due to weakness in her legs. Gait: Deferred. Speech: Spontaneous speech is moderately dysarthric without aphasia. Repetition is intact. Involuntary Movements: None. Pronator Drift: As per motor examination. LABORATORY DATA: From January 16, 2018; sodium 143, potassium 4.5, chloride 102, carbon dioxide 28, anion gap 17.5, BUN 24, creatinine 0.80, estimated GFR 60, BUN to creatinine ratio of 30, glucose of 129, and calcium 9.7. Total bilirubin 0.4, AST 46, ALT 31, alkaline phosphatase 75, total protein 7.3, albumin 3.3, globulin 4.0, and albumin to globulin ratio 8.0. Creatinine kinase 21, 15, 19, and 13; CK-MB 1.10, 0.80, 0.80, and 0.80; troponin I less than 0.001, less than 0.001, less than 0.001, and less than 0.001. B-natriuretic peptide less than 10.0. TSH 0.554. Vitamin B12 ? 522. CBC with differential and platelets from January 16, 2018 shows a white blood cell count of 6.59 with 52.2% neutrophils, 28.1% lymphocytes, 15.9% monocytes, 2.4% eosinophils, and 0.8% basophils. The hemoglobin and hematocrit were 15.4 and 48.1, respectively. Platelet count was 135. Erythrocyte sedimentation rate 7. From January 16, 2018, D-dimer 1.72. Rheumatoid factor is pending. KIARA screen is pending. DIAGNOSTIC STUDIES: CT Brain without Contrast: On my review, there is no evidence of recent large territorial ischemia, hemorrhage, mass, or mass effect. ASSESSMENT AND PLAN Ms. Casey is a 72-year-old woman with a past medical history significant for hypertension, possible diabetes mellitus, prior left-sided stroke with residual dysarthria and right hemiparesis, and seizure disorder who presented to [facility] status post fall. The patient's neurological examination is significant for effort-dependent weakness in the legs, diminished deep tendon reflexes at the patellas and Achilles, and decreased sensation, especially to pinprick and vibration, over the lower extremities. The patient's laboratory data and diagnostic studies have been reviewed and are documented above. Ms. Casey endorses a prior diagnosis of peripheral neuropathy, probably secondary to diabetes mellitus as that is the most common cause of peripheral neuropathy in [place]. The patient endorses burning pain and a pins and needles sensation over the feet and forelegs. Approximately 1 to 2 years ago, the patient was prescribed gabapentin 300 mg by mouth in the morning and 600 mg by mouth in the evening with little improvement of her neuropathic pain. In addition to her neuropathic pain, the patient endorses weakness in her lower extremities, possibly due to the peripheral neuropathy as well as the prior stroke, which reportedly left the patient with right-sided hemiparesis. RECOMMENDATIONS: As follows: 1. Blood work will be ordered to evaluate for other treatable causes of peripheral neuropathy. However, as stated above, most likely cause is the patient's known diagnosis of diabetes mellitus. 2. The patient's neuropathic pain is not well controlled. The dose of gabapentin will be increased to 600 mg by mouth 3 times daily. 3. A physical therapy consultation has been ordered and is pending. Follow up those results. 4. Seizure disorder-Continue with the patient's home medication of divalproex sodium. 5. Ms. Casey does not endorse acute changes in her known neurological deficits. Therefore, it is unlikely the patient has experienced a stroke or other acute pathology within the central nervous system. No further neuroimaging studies are recommended at this time. 6. Defer treatment of the remaining medical comorbidities to the primary and other services. Thank you for this consultation. I will continue to follow this patient while she remains in the hospital. Time spent: 70 minutes. Job#: [id number] PAT MTDD
[2018-01-18] MEDS: TRAMADOL HCL 50 MG TAB PO PRN (18:09)
[2018-01-19] VITALS (8 sets, daily range): BP systolic 122–172; BP diastolic 64–85
[2018-01-19] MEDS: TRAMADOL HCL 50 MG TAB PO PRN (00:35)
[2018-01-19] MEDS: ALBUTEROL/IPRATROPIUM 3 ML NEB NEB SCH ×4 (01:00→19:00)
[2018-01-19] MEDS: LEVOTHYROXINE SODIUM 25 MCG TABLET PO SCH (06:18)
[2018-01-19] MEDS: LEVOTHYROXINE SODIUM 112 MCG TAB PO SCH (06:18)
--- NOTE | 2018-01-19 06:19 | Diagnostic Imaging Report ---
EXAM: CHEST SINGLE (PORTABLE), AP 1 view INDICATION: Pneumonia COMPARISON: AP view of the chest January 16, 2018 FINDINGS: LINES/TUBES: None LUNGS: Interstitial edema and bibasilar atelectasis. PLEURA: No effusions or pneumothorax. HEART AND MEDIASTINUM: Stable appearance BONES AND SOFT TISSUES: No acute findings. IMPRESSION: No interval change Signed by: Dr. Dimple Paul M.D. on 01/19/2018 6:16 AM
[2018-01-19] MEDS: GABAPENTIN 300 MG CAP PO SCH ×3 (08:55→21:12)
[2018-01-19] MEDS: DEPAKOTE ER 500MG TAB(ONCE DAILY) PO SCH ×2 (08:55→17:31)
[2018-01-19] MEDS: CELECOXIB 200 MG CAP PO SCH (08:55)
[2018-01-19] MEDS: POTASSIUM CHLORIDE 20 MEQ TAB CR PO SCH (08:55)
[2018-01-19] MEDS: DULOXETINE HCL 30 MG DELAYED RELEASE PO SCH ×2 (08:55→17:31)
[2018-01-19] MEDS: FUROSEMIDE INJ 10 MG/ML 2 ML VIAL IV SCH ×2 (08:55→17:31)
[2018-01-19] MEDS: TRAMADOL HCL 50 MG TAB PO SCH (08:56)
[2018-01-20] VITALS (7 sets, daily range): BP systolic 133–175; BP diastolic 67–82
[2018-01-20] MEDS: LEVOTHYROXINE SODIUM 112 MCG TAB PO SCH (05:34)
[2018-01-20] MEDS: LEVOTHYROXINE SODIUM 25 MCG TABLET PO SCH (05:34)
[2018-01-20 06:50] LABS: CLARITY,URINE SL CLOUDY (CLEAR); COLOR,URINE AMBER (YELLOW); LEUKOCYTE ESTERASE ,URINE TRACE (NEGATIVE); NITRITE,URINE POSITIVE (NEGATIVE)
[2018-01-20 06:51] LABS: BILIRUBIN,URINE 2+ (NEGATIVE); KETONES,URINE 1+ (NEGATIVE); PROTEIN,URINE DIPSTICK 2+ (NEGATIVE); URINE UROBILINOGEN 0.2 mg/dL (0.2 - 1)
[2018-01-20 07:00] LABS: BASOPHILS % 0.5 % (0.0-1.0); EOSINOPHILS # (AUTO) 0.1 (0.0-0.4); HEMOGLOBIN 14.4 g/dL (12.0-16.0); LYMPHOCYTES # (AUTO) 1.3 (1.0-3.2); LYMPHOCYTES % 15.2 % (18.0-39.1); MEAN CORPUSCULAR HEMOGLOBIN 29.1 pg (28-32); MEAN CORPUSCULAR HGB CONC 31.3 g/dL (31-35); MEAN CORPUSCULAR VOLUME 92.9 fL (81-99); MONOCYTES # (AUTO) 1.4 (0.2-0.8); MONOCYTES % 16.9 % (4.4-11.3); NEUTROPHILS # (AUTO) 5.4 (2.1-6.9); NEUTROPHILS % 65.8 % (38.7-80.0); PLATELET COUNT 135 x10e3/uL (140-360); RED BLOOD COUNT 4.95 x10e6/uL (3.6-5.1); RED CELL DISTRIBUTION WIDTH 14.2 % (11.7-14.4)
[2018-01-20 07:02] LABS: BACTERIA,URINE FEW /HPF; RBC,URINE 21-50 /HPF (0-5); WBC,URINE (MAN) >50 /HPF (0-5)
[2018-01-20 07:03] LABS: EPITHELIAL CELLS,URINE MODERATE /LPF
[2018-01-20 07:12] LABS: INR 1.11; PROTHROMBIN TIME 13.5 seconds (11.9-14.5)
[2018-01-20 07:13] LABS: PARTIAL THROMBOPLASTIN TIME 32.3 seconds (23.8-35.5)
[2018-01-20 07:23] LABS: ALANINE AMINOTRANSFERASE 24 IU/L (0-55); ALBUMIN 2.9 g/dL (3.5-5.0); ALBUMIN/GLOBULIN RATIO 0.6 (0.8-2.0); ALKALINE PHOSPHATASE 66 IU/L (40-150); ANION GAP 15.2 mmol/L (8-16); BLOOD UREA NITROGEN 18 mg/dL (7-26); BUN/CREATININE RATIO 26 (6-25); CALCIUM 9.8 mg/dL (8.4-10.2); CARBON DIOXIDE 30 mmol/L (22-29); CHLORIDE 93 mmol/L (98-107); CREATININE, SERUM 0.68 mg/dL (0.57-1.11); EST GLOMERULAR FILTRATION RATE > 60 ML/MIN (60-); GLUCOSE 128 mg/dL (74-118); MAGNESIUM 2.1 MG/DL (1.3-2.1); POTASSIUM 4.2 mmol/L (3.5-5.1); SODIUM 134 mmol/L (136-145)
[2018-01-20] MEDS: ALBUTEROL/IPRATROPIUM 3 ML NEB NEB SCH ×3 (07:33→19:50)
--- NOTE | 2018-01-20 08:18 | Diagnostic Imaging Report ---
Exam: Cervical spine MRI without IV contrast History: Fall, neck pain Comparison studies: Cervical spine CT 03/07/2017. Technique: Sagittal and axial T2 and T1, sagittal STIR and axial T2*GRE. Intravenous contrast: None Findings: Several pulse sequences are somewhat limited by artifacts related to patient motion. In spite of this limitation: Alignment: Straightened cervical curvature with mild chronic fused anterolisthesis of C3 on C4 and C5 on C6. Cervicomedullary junction: No abnormalities. Patent foramen magnum. Soft tissues: No T2 hyperintense inflammatory changes. Spinal cord: Normal in size and grossly normal in signal from the foramen magnum through T1. Vertebrae: No fractures, infection or neoplasm. Surgical changes of anterior cervical discectomy and fusion (ACDF) from C2 to C4 with susceptibility related to anterior plate and screw construct, disc spacers in place and solid interbody and facet fusion as seen on the previous cervical spine CT. The C5, C6 and C7 vertebral bodies are also fused and there is multilevel facet fusion from C4 through C7. Degenerative changes: C2-C3: Bilateral facet and mild uncovertebral arthrosis without significant foraminal stenosis. Thickened ligamentum flavum indent the thecal sac. No significant canal stenosis. C3-C4: There is mild anterolisthesis of C3 on C5 which in combination with thickened ligamentum flavum result in moderate canal stenosis. Mild to moderate left foraminal stenosis due to uncovertebral arthrosis and moderate left facet arthrosis. C4-C5: Mild bilateral foraminal stenosis due due to uncovertebral arthrosis and moderate bilateral facet arthrosis. No canal stenosis. C5-C6: Mild bilateral foraminal stenosis due to uncovertebral and facet arthrosis. Mild chronic fused anterolisthesis of C5 on C6 does not result in significant canal stenosis. C6-C7: Mild bilateral foraminal stenosis due to uncovertebral and facet arthrosis. No significant canal stenosis. C7-T1: Severely degenerated disc. Disc osteophyte complex and uncovertebral arthrosis with moderate left and mild right foraminal stenosis. No significant canal stenosis. T1-T2 through T3-T4: Severely degenerated disks with disc osteophyte complexes which indent the thecal sac but do not result in significant canal stenosis. Incidental findings: Absence of the normal hypointense flow-void within the V4 segment of the left vertebral artery with associated increased signal on the T1 signal in the nonspecific and may possibly be flow-related artifact in the nondominant artery. Alternatively, flow-limiting stenosis could result in this appearance. IMPRESSION: 1. Surgical changes with C2-C7 fusion. 2. Severely degenerated disks from C7 to T4. 3. Moderate canal stenosis at C3-C4. 4. Moderate degenerative foraminal stenosis on the left at C7-T1. 5. Multilevel facet arthrosis and facet fusion. 6. Nonspecific flow signal abnormality in the left vertebral artery. Cervical and intracranial CTA or MRA could further evaluate. Signed by: Dr. Daniel Mcclain M.D. on 01/20/2018 8:14 AM
[2018-01-20] MEDS: POTASSIUM CHLORIDE 20 MEQ TAB CR PO SCH (09:17)
[2018-01-20] MEDS: DULOXETINE HCL 30 MG DELAYED RELEASE PO SCH ×2 (09:17→17:15)
[2018-01-20] MEDS: CELECOXIB 200 MG CAP PO SCH (09:17)
[2018-01-20] MEDS: DEPAKOTE ER 500MG TAB(ONCE DAILY) PO SCH ×2 (09:17→17:15)
[2018-01-20] MEDS: GABAPENTIN 300 MG CAP PO SCH ×3 (09:17→21:32)
[2018-01-20] MEDS: FUROSEMIDE INJ 10 MG/ML 2 ML VIAL IV SCH ×2 (09:17→17:15)
[2018-01-20] MEDS: TRAMADOL HCL 50 MG TAB PO SCH (09:18)
[2018-01-20] MEDS ORDERED: LIDOCAINE HCL 4% 50 ML BTL ONE (12:16)
[2018-01-20] MEDS ORDERED: LIDOCAINE HCL 2% 30 ML TUBE ONE (12:17)
[2018-01-20] MEDS ORDERED: CLONIDINE HCL 0.1 MG TAB PO SCH (12:30)
[2018-01-20] MEDS ORDERED: CLONIDINE HCL 0.2 MG TAB PO PRN (12:45)
[2018-01-20] MEDS: CEFEPIME HCL 1 GM VIAL IV SCH (12:45)
[2018-01-20] MEDS ORDERED: CEFEPIME HCL 1 GM VIAL ONE (12:47)
[2018-01-20] MEDS ORDERED: LIDOCAINE HCL (LTA) 4 ML SOLN ONE (12:58)
--- NOTE | 2018-01-20 13:04 | Progress Note ---
DATE: January 20, 2018 PULMONARY MEDICINE PROGRESS NOTE SUBJECTIVE: Ms. Casey was seen and examined at bedside. She continues to have mild confusion as per No new fevers, although she was a little bit hot subjectively. Still intermittent cough noted. I checked her IVs, and she has an IV that just now turned 3 days' old and is not grossly inflamed. REVIEW OF SYSTEMS: No rash. No chest pain. OBJECTIVE VITALS: Afebrile. Vital signs noted per electronic record. GENERAL: No acute distress, alert and calm. HEENT: Normocephalic, atraumatic. NECK: Supple. Throat is midline. LUNGS: Bilateral air entry. Rare rhonchi. CARDIOVASCULAR: S1, S2. No murmurs, rubs or gallops. ABDOMEN: Soft, nontender. EXTREMITIES: No clubbing, no cyanosis. There is still 1 to 2+ edema. INTEGUMENT: No rash. No purpura. IMPRESSION AND PLAN 1. Chronic interstitial lung disease suspected. 2. Possible fluid overload component, B-type natriuretic peptide less than 10. 3. Weakness. 4. Obesity. Continue diuretics. The patient remains on Celebrex. In the future, will have to consider stopping this kind of medicine. Bronchoscopy tentatively today. Lung biopsies also additionally expected via transbronchial route. I have discussed with the . Continue sepsis workup. Urine showed greater than 50 white cells. Will start antibiotics at this time. Job#: [id number]
--- NOTE | 2018-01-20 14:39 | Operative Report ---
DATE OF PROCEDURE: January 20, 2018 PROCEDURE: Diagnostic flexible bronchoscopy. OTHER ASSOCIATED PROCEDURES 1. Bronchial washing. 2. Bronchoalveolar lavage. 3. Transbronchial lung biopsy, left lower lobe. INDICATIONS: Diagnosis of chronic interstitial lung disease. CONSENT: Informed consent taken from the in the presence of the patient, who was deemed not competent with some confusion. ANESTHESIA: Per anesthesiology. FINDINGS: Flexible bronchoscope was inserted into a 7.5 endotracheal tube that was placed by anesthesia. We performed inspection of the tracheobronchial tree showing normal configuration. No internal airway lesions. The bronchoscope was wedged into the left lingula and BAL was performed with good return. No evidence of bleeding nor of any extrinsic protein load. Washes were taken of the lungs. With the forceps, multiple biopsies were taken of the left lower lobe. It was noted on 2 biopsies that there was excess bleeding ability noted. Thereafter, no further biopsies were taken, but were able to get 5 biopsies. The patient had hemostasis achieved with 2 washes of cold saline. Thereafter, the procedure was terminated. The patient was allowed to recover with anesthesia. IMPRESSION: Successful bronchoscopy, bronchial washings, bronchoalveolar lavage of lingula, transbronchial lung biopsies of left lower lobe. COMPLICATIONS: None. ESTIMATED BLOOD LOSS: 3 mL. Job#: [id number] KASI
--- NOTE | 2018-01-20 15:10 | Diagnostic Imaging Report ---
PROCEDURE: A single AP view of the chest. COMPARISON: 01/19/2018 INDICATIONS: POST BRONCHOSCOPY FINDINGS: Lines/tubes: Faintly visualized catheter projects over the right atrium. Lungs/pleura: The lungs are poorly inflated. Worsening opacification of the left lung base. Interstitial edema grossly unchanged allowing for differences in current low lung volumes. No pneumothorax. Heart and mediastinum: The heart and the mediastinum are unchanged Bones: Unchanged IMPRESSION: Worsening opacification of the left lung base may represent hemorrhage in the setting of biopsy, aspiration, and/or atelectasis with pleural effusion. Interstitial edema grossly unchanged allowing for differences in lung volumes. Dictated by: Desmond Mario M.D. on 01/20/2018 at 15:11 Electronically approved by: Desmond Mario M.D. on 01/20/2018 at 15:11
[2018-01-20 16:03] LABS: BODY FLUID APPEARANCE CLOUDY; BODY FLUID COLOR COLORLESS; BODY FLUID TYPE BAL LINGULA; RBC,BODY FLUID 84 cells/uL; WBC,BODY FLUID 65 cells/uL
[2018-01-20 16:18] LABS: EOSINOPHILS,BODY FLUID 6 %; LYMPHOCYTES,BODY FLUID 26 %; MONO/MACROPHG,BODY FLUID 32 %; NEUTROPHILS,BODY FLUID 36 %
[2018-01-20] MEDS ORDERED: ONDANSETRON HCL INJ 2 MG/ML VIAL ONE (17:45)
[2018-01-20] MEDS ORDERED: PHENYLEPHRINE HCL 1% 10 MG/ML VIAL ONE (17:45)
[2018-01-20] MEDS ORDERED: SEVOFLURANE INHAL SOLN 250 ML PEN BTL ONE (17:45)
[2018-01-20] MEDS ORDERED: FENTANYL CITRATE/PF 100MCG/2 ML INJ ONE (18:06)
--- NOTE | 2018-01-20 18:24 | Progress Note ---
DATE: January 19, 2018 PULMONARY MEDICINE PROGRESS NOTE SUBJECTIVE: Ms. Casey was seen and examined at bedside. I reviewed some findings with her. I discussed bronchoscopy with her as the next recommended test to do. As of now, there is no decision. Nursing does not report any new respiratory distress episodes. She did, however, have some temperature to 101.5. 91% oxygen saturation on nasal cannula. REVIEW OF SYSTEMS: No bleeding. No rash. OBJECTIVE VITALS: Patient with vitals as reviewed per record. GENERAL: In bed, calm. HEENT: Normocephalic, atraumatic. Throat midline. NECK: Supple. LUNGS: Bilateral air entry. Rare rhonchi. CARDIOVASCULAR: S1, S2. No murmurs, rubs or gallops. ABDOMEN: Soft, nontender. EXTREMITIES: No clubbing, no cyanosis. There is baseline edema, 1 to 2+. INTEGUMENT: No rash. No purpura. LABS: No new updates. Chest x-ray with interstitial edema pattern, vascular atelectasis. IMPRESSION AND PLAN 1. Treat for chronic interstitial lung disease, B-type natriuretic peptide less than 10. 2. History of acute superimposed pneumonia. 3. History of dysphagia in the past. 4. History of weakness and bedbound status. 5. Obstructive sleep apnea per report. 6. History of rheumatoid arthritis in one citation in her chart. At this time, we will continue followup. Offered bronchoscopy, there is no decision yet. N.p.o. after midnight and we will see if she has a decision by the morning and we can try to get her in for bronchoscopy. Plan for lung biopsies and lavage for diagnosis of chronic interstitial lung disease. Furthermore, we will want microbiologic studies to rule out mycobacterial infection and even some fungal infections. Follow up rheumatoid factor. KIARA was already negative. Follow up the fevers and continue treatment at this time. Job#: [id number] ANJUM
--- NOTE | 2018-01-20 18:31 | Progress Note ---
DATE: January 20, 2018 INTERNAL MEDICINE PROGRESS NOTE SUBJECTIVE: The patient has just had a bronchoscopy. She is kind of confused after the bronchoscopy. PHYSICAL EXAM: HEART: Shows regular rhythm. Normal S1 and S2 sounds. LUNGS: Clear bilaterally. ABDOMEN: Soft. EXTREMITIES: Show no evidence of cyanosis, edema or trauma. She has scaly rash on the right leg. VITAL SIGNS: Blood pressure 143/77, temperature 98.1, heart rate 103 per minute, respiratory rate is 17 per minute, oxygen saturation 93%. BLOOD WORK: We have BMP: Sodium 134, potassium 4.2, chloride 93, CO2 30, BUN 18, creatinine 0.62. Glucose 128. On the CBC: White blood count 8.21, hemoglobin 14.4, hematocrit 46.0, platelet count 135,000. PT 13.5, PTT 32.3, INR 1.11. AST 38, ALT 24, total bilirubin 1.2, alkaline phosphatase 66. IMPRESSION: 1. Lobar pneumonia. 2. Fluid overload. 3. Chronic interstitial lung disease suspected. 4. Sleep apnea. 5. Dysphagia. 6. 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 7. Peripheral neuropathy. 8. Questionable diastolic congestive heart failure. PLAN OF TREATMENT: Albuterol and Atrovent q.6 h. as needed for shortness of breath. Furosemide 20 mg twice a day. Tramadol 50 mg q.6 h. as needed. Celebrex 200 mg daily. Potassium chloride 20 mEq daily. Levothyroxine 125 mcg daily. Amlodipine 5 mg daily. Clonidine 0.2 mg q.8 h. Depakote 500 mg twice a day. Cymbalta 60 mg twice a day. Cefepime 1 g IV piggyback twice a day. Valium 5 mg 3 times a day as needed. Hyoscyamine 0.25 mg q.4 h. as needed. Gabapentin 600 mg 3 times a day. Bronchoscopy has been done today. We are waiting on the cultures. Job#: [id number] EV
--- NOTE | 2018-01-20 20:16 | Diagnostic Imaging Report ---
Examination: CT BRAIN WITHOUT CONTRAST History:Worsening confusion. Comparison studies:Head CT dated 01/17/2018. Technique: Axial images were obtained from the skull base to the vertex. Coronal and sagittal images reconstructed from the axial data. Intravenous contrast: None Findings: Scalp: No abnormalities. Bones: No fractures, blastic or lytic lesions. Brain sulci: MIld volume loss for age. Ventricles: No hydrocephalus. Extra-axial space: No abnormalities. Parenchyma: Again demonstrated are mild confluent areas of hypoattenuation in the periventricular and subcortical white matter, nonspecific. No masses, hemorrhage, or acute or chronic cortical based vascular insults.. Sellar/suprasellar region: No abnormalities. Craniocervical junction: Patent foramen magnum. No Chiari one malformation. Incidental findings: Atherosclerotic calcification of the cavernous and supraclinoid internal carotid and V4 segments of the bilateral vertebral arteries. Impression: No new or acute intracranial abnormalities. No change from prior head CT dated 01/17/2018. Unchanged mild chronic microvascular ischemic change and mild volume loss. Signed by: Dr. Kay Colindres M.D. on 01/20/2018 8:12 PM
[2018-01-21] VITALS: BP 135/65
[2018-01-21] MEDS: CEFEPIME HCL 1 GM VIAL IV SCH ×2 (00:57→13:20)
[2018-01-21] MEDS: ALBUTEROL/IPRATROPIUM 3 ML NEB NEB SCH ×3 (01:15→14:00)
[2018-01-21] MEDS: TRAMADOL HCL 50 MG TAB PO PRN (02:36)
[2018-01-21 04:00] VITALS: BP 129/67
[2018-01-21] MEDS: LEVOTHYROXINE SODIUM 25 MCG TABLET PO SCH (05:30)
[2018-01-21] MEDS: LEVOTHYROXINE SODIUM 112 MCG TAB PO SCH (05:30)
[2018-01-21 07:55] VITALS: BP 133/71
[2018-01-21] MEDS ORDERED: AMLODIPINE BESYLATE 5 MG TAB PO SCH (09:00)
[2018-01-21] MEDS: FUROSEMIDE INJ 10 MG/ML 2 ML VIAL IV SCH (09:51)
[2018-01-21] MEDS: DEPAKOTE ER 500MG TAB(ONCE DAILY) PO SCH (09:51)
[2018-01-21] MEDS: POTASSIUM CHLORIDE 20 MEQ TAB CR PO SCH (09:51)
[2018-01-21] MEDS: GABAPENTIN 300 MG CAP PO SCH ×2 (09:51→16:05)
[2018-01-21] MEDS: CELECOXIB 200 MG CAP PO SCH (09:51)
[2018-01-21] MEDS: DULOXETINE HCL 30 MG DELAYED RELEASE PO SCH (09:51)
[2018-01-21] MEDS: TRAMADOL HCL 50 MG TAB PO SCH (09:51)
[2018-01-21] MEDS ORDERED: GADOBENATE DIMEGLUMINE 1 ML IV ONE (10:01)
[2018-01-21] MEDS ORDERED: SODIUM CHLORIDE 0.9% 50ML 50 ML ONE (10:01)
[2018-01-21 11:13] VITALS: BP 138/74
--- NOTE | 2018-01-21 12:08 | Diagnostic Imaging Report ---
EXAMINATION: MR angiogram of the neck without and with contrast CLINICAL HISTORY: Evaluate for vertebral artery stenoses, pulmonary hypoxia, abnormal cervical spine MRI. COMPARISON: Cervical spine MRI on 01/17/2018 TECHNIQUE: A 2D [id number] TOF angiographic sequences without wound with was performed on the neck . The source images and pharmacy services representative projections of the MIP images through 180 degrees of rotation of the neck were reviewed Contrast: ]20 mL of MultiHance FINDINGS: If present, stenosis of the carotid bulbs is measured based on NASCET criteria i.e area of maximum stenosis compared to the cervical ICA distal to the bulb. Right Carotid Artery: The common carotid, internal and external carotid arteries at the level of the neck are normal in caliber, and patent, no evidence of stenoses. Left Carotid Artery: The common carotid, internal and external carotid arteries at the level of the neck are normal in caliber, and patent, no evidence of stenoses. Vertebral Arteries: Both are normal in morphology and caliber. The right is dominant. No significant stenosis is seen. The origin of the vertebral arteries is not well-visualized. IMPRESSION: Normal MR angiogram of the neck. Particularly no stenosis of the left vertebral artery. Previously seen abnormal signal corresponds to a flow-related artifact. Signed by: Dr. Nubia Lui M.D. on 01/21/2018 12:05 PM
--- NOTE | 2018-01-21 12:58 | Progress Note ---
DATE: January 21, 2018 INTERNAL MEDICINE PROGRESS NOTE SUBJECTIVE: Patient is doing better now. PHYSICAL EXAM: HEART: Shows regular rhythm. Normal S1 and S2 sounds. LUNGS: Are clear bilaterally. ABDOMEN: Soft. VITAL SIGNS: Blood pressure 138/74. Temperature 97.3. Heart rate 91 per minute. Respiratory rate is 18 per minute. The oxygen saturation 93%. BLOOD WORK: We have a BMP: Sodium 134, potassium 4.2, chloride 93, CO2 30, BUN 18, creatinine 0.66, glucose 128. On the CBC: White blood count 8.21, hemoglobin 14.4, hematocrit 46.0, platelet count 135,000. PT 13.5, INR 1.11, PTT 32.3. AST 30, ALT 24, total bilirubin 1.2, alkaline phosphatase 166. CHEST X-RAY: Showed left lung opacity. FINAL IMPRESSION: 1. Left lower lobe pneumonia. 1. Urinary tract infection. 2. Severe neuropathy. 3. Hypertension. 4. Hypothyroidism. 5. Interstitial lung disease. 6. Morbid obesity. 7. Physical deconditioning. PLAN OF TREATMENT: Continue cefepime. Continue albuterol and Atrovent q.6 h. Tramadol 50 mg q.6 h. as needed. Celebrex 200 mg daily. Potassium chloride 20 mEq daily. Levothyroxine 25 mcg daily and 112 mcg daily. Clonidine 0.2 mg q.8 h. as needed. Cymbalta 60 mg twice a day. Nystatin twice a day. Cefepime 1 g IV piggyback twice a day. Depakote 500 mg twice a day. Hyoscyamine 0.2 mg q.4 h. as needed. Gabapentin 600 mg 3 times a day. Valium 5 mg q.8 h. as needed. Amlodipine 5 mg daily. I had a long discussion with the for at least 45 minutes. He would like her to go to a rehab place or [id number] due to the fact that patient keeps falling all the time. He is unable to take care of her, plus she needs IV antibiotic. We are waiting on the sputum culture from the aspirate from the bronchoscopy and then decide if we need to change the antibiotic. AFB has been sent also in the bronchoscopy from the aspiration, and also we are waiting on the biopsy report. Urine culture shows a UTI. We are going to continue current medication regimen and a possible transfer to [facility]. Job#: [id number] EV [id number]
[2018-01-21 15:40] VITALS: BP 129/81
--- NOTE | 2018-01-21 23:17 | Progress Note ---
DATE: January 21, 2018 PULMONARY MEDICINE PROGRESS NOTE SUBJECTIVE: Ms. Casey was seen and examined at bedside. She continues to have lot of weakness. Patient at this time was seen by therapist and attempts to mobilize her showed that it was very difficult. Patient was discussed certain options. She did not have any complications after bronchoscopy yesterday, but we still do not have results. She was recommended for further care in long-term acute care setting short term. REVIEW OF SYSTEMS: No bleeding, no rash. OBJECTIVE: VITAL SIGNS: Afebrile, vital signs noted per electronic record. GENERAL: In no acute distress, alert and calm. HEENT: Normocephalic, atraumatic. NECK: Supple. Throat midline. LUNGS: Bilateral air entry, few rhonchi. CARDIOVASCULAR: S1 and S2. No murmurs, rubs, or gallops. ABDOMEN: Soft, nontender. EXTREMITIES: No clubbing, no cyanosis, there is 2+ edema. INTEGUMENT: No rash, no purpura. LABS: Chest radiography reviewed. Chest x-ray with worsening infiltrate. IMPRESSION AND PLAN: 1. Acute pneumonia. 2. Chronic underlying interstitial lung disease. 3. Weakness. 4. Fluid overload. 5. Other neurologic progressive degenerative process. Continue physical therapy and occupational therapy. Continue intravenous antibiotics. Steroids continued to be weaned off. Patient will have follow up of bronchoscopy results pending. Furthermore, patient will be transferred to long-term acute care hospital facility since she is too sick and too ill to go home. Job#: [id number]
[2018-01-22] MEDS ORDERED: NYSTATIN 15 GM POWDER UD BTL TOP SCH (09:00)
--- NOTE | 2018-01-23 02:11 | Discharge Summary ---
HISTORY OF PRESENT ILLNESS: She is a 72-year-old female, past medical history positive for CVA, severe polyneuropathy, morbid obesity, hypertension, came to the hospital because she was falling at home. Apparently, she has a frequent falling situation at home. Also, she was found to be hypoxemic and high blood pressure. On the ER, she was found to have pneumonia, urinary tract infections, started on IV antibiotics, and patient had also a bronchoscopy done by Dr. Carmen because of the bilateral pulmonary infiltrate, biopsy was done. Cultures were done also. Patient was transferred to [facility] for continuation of the IV antibiotic and optimization of the physical condition due to the difficulty walking. The cannot take care of her at home because of her frequent falls, so she also needs physical therapy. PHYSICAL EXAM HEART: Shows regular rhythm. Normal S1, S2 sounds. LUNGS: Clear bilaterally. ABDOMEN: Soft. VITALS: Blood pressure 138/74, temperature 97.3, heart rate 91 per minute, respiratory rate is 18 per minute, oxygen saturation 93%. FINAL IMPRESSIONS 1. Lower lobe pneumonia. 2. Urinary tract infection. 3. Severe neuropathy. 4. Frequent falling. 5. Hypertension. 6. Acquired hypothyroidism. 7. Interstitial lung disease. 8. Morbid obesity. 9. Physical deconditioning. PLAN OF TREATMENT 1. Continue cefepime. 2. Continue albuterol and Atrovent q.6 h as needed for shortness of breath. 3. Tramadol 50 mg q.6 h as needed. 4. Celebrex 200 mg daily. 5. Potassium chloride 20 mEq daily. 6. Levothyroxine 25 mcg daily and 112 mcg daily. 7. Clonidine 0.2 mg q.8 h as needed. 8. Cymbalta 60 mg twice a day. 9. Nystatin to affected area twice a day. 10. Cefepime 1 g IV piggyback twice a day. 11. Depakote 500 mg twice a day. 12. Hyoscyamine 0.2 mg q.4 h as needed for abdominal pain. 13. Gabapentin 600 mg 3 times a day. 14. 5 mg q.8 h as needed. 15. Amlodipine 5 mg daily. Patient was seen by Dr. Agarwal, neurology, who diagnosed her with severe polyneuropathy and started her on gabapentin. As I said, the patient going to be transferred to [facility] today. PHOEBE PASTRANA MD Job#: [id number] CQ
== END 2018-01-21 17:44 | DRG 193 ==
LOC: ER 20:16 → IMCU 01-17 00:12 → OBSVTOIN 01-20 12:26
PROVIDERS: ADMIT Internal Medicine; ATTEND Internal Medicine
PROC: 0BBB8ZX Excision of Left Lower Lobe Bronchus, Via Natural or Artificial Opening Endoscopic, Diagnostic (ICD-10-PCS; 2018-01-20)
PROC: 3E1F88X Irrigation of Respiratory Tract using Irrigating Substance, Via Natural or Artificial Opening Endoscopic, Diagnostic (ICD-10-PCS; principal; 2018-01-20 13:07)
PROC: 0B998ZX Drainage of Lingula Bronchus, Via Natural or Artificial Opening Endoscopic, Diagnostic (ICD-10-PCS; 2018-01-20 13:07)
DX: J18.9 Pneumonia, unspecified organism (principal); I50.33 Acute on chronic diastolic (congestive) heart failure; J84.9 Interstitial pulmonary disease, unspecified; N39.0 Urinary tract infection, site not specified; I69.351 Hemiplegia and hemiparesis following cerebral infarction affecting right dominant side; Z68.41 Body mass index [BMI] 40.0-44.9, adult; E11.42 Type 2 diabetes mellitus with diabetic polyneuropathy; E66.01 Morbid (severe) obesity due to excess calories; E87.70 Fluid overload, unspecified; Z91.81 History of falling; R09.02 Hypoxemia; R53.81 Other malaise; I69.328 Other speech and language deficits following cerebral infarction; I69.398 Other sequelae of cerebral infarction; R56.9 Unspecified convulsions; G47.33 Obstructive sleep apnea (adult) (pediatric); Z74.01 Bed confinement status; E03.9 Hypothyroidism, unspecified; M06.9 Rheumatoid arthritis, unspecified; I11.0 Hypertensive heart disease with heart failure; R41.0 Disorientation, unspecified; T42.75XA Adverse effect of unspecified antiepileptic and sedative-hypnotic drugs, initial encounter
CPT/HCPCS: 31623; 31625; 36415; 70450; 70549; 71045; 71260; 72141; 80053; 81001; 82550; 82553; 82607; 82746; 83036; 83735; 83880; 83921; 84207; 84425; 84443; 84484; 85025; 85379; 85610; 85651; 85730; 86039; 86140; 86200; 86235; 86431; 87040; 87070; 87086; 87102; 87116; 87186; 87205; 87206; 87252; 87254; 88112; 88305; 88313; 89051; 93005; 93306; 94640; 97139; 99284; G0378; J0692; J1940; J2370; J2405; J7040; Q9967

== ENCOUNTER 2018-04-17 18:29 | Emergency (ER) | payer MEDICARE, OTHER ==
[~2018-04-17] VITALS: Ht 160 cm; Wt 110.2 kg
[~2018-04-17 18:29] MED LIST changes: +CELEBREX100 MG PO
[2018-04-17] MEDS ORDERED: POTASSIUM CHLORIDE 20MEQ/15ML UDC PO ONE (18:45)
[2018-04-17 19:15] LABS: CALCIUM 10.7 mg/dL (8.4-10.2); CREATININE, SERUM 0.98 mg/dL (0.57-1.11)
[2018-04-17 21:15] VITALS: BP 119/56
== END 2018-04-17 22:22 | disposition home or self-care (01) ==
LOC: ER 18:29
DX: E87.6 Hypokalemia (principal); K52.9 Noninfective gastroenteritis and colitis, unspecified
CPT/HCPCS: 36415; 80048; 83735; 99283

== ENCOUNTER 2018-06-29 19:33 | Inpatient (IN) | payer MEDICARE, OTHER ==
[~2018-06-29] VITALS: Ht 160 cm; Wt 109.1 kg
[2018-06-29] MEDS ORDERED: SODIUM CHLORIDE 0.9% 1000ML 1,000 ML IV STA ×2 (19:39→22:02)
[2018-06-29] MEDS ORDERED: SODIUM CHLORIDE 0.9% 1000ML 1,000 ML ONE ×2 (19:40→21:53)
[2018-06-29] MEDS ORDERED: ACETAMINOPHEN 1000 MG/100 ML 100 ML IV ONE (19:40)
[2018-06-29] MEDS ORDERED: MEROPENEM 1GRAM 1 GM in SODIUM CHLORIDE 0.9% 100 ML 100 ML IV ONE (19:43)
[2018-06-29] MEDS ORDERED: ACETAMINOPHEN 1000 MG/100 ML IV STA (19:47)
[2018-06-29 19:53] LABS: BASOPHILS # (AUTO) 0.1 (0.0-0.1); BASOPHILS % 0.3 % (0.0-1.0); EOSINOPHILS % 0.1 % (0.0-6.0); HEMATOCRIT 42.1 % (34.2-44.1); HEMOGLOBIN 13.8 g/dL (12.0-16.0); LYMPHOCYTES # (AUTO) 0.4 (1.0-3.2); LYMPHOCYTES % 2.2 % (18.0-39.1); MEAN CORPUSCULAR HEMOGLOBIN 28.6 pg (28-32); MEAN CORPUSCULAR HGB CONC 32.8 g/dL (31-35); MEAN CORPUSCULAR VOLUME 87.3 fL (81-99); MONOCYTES # (AUTO) 1.4 (0.2-0.8); MONOCYTES % 6.9 % (4.4-11.3); PLATELET COUNT 197 x10e3/uL (140-360); RED BLOOD COUNT 4.82 x10e6/uL (3.6-5.1); RED CELL DISTRIBUTION WIDTH 14.8 % (11.7-14.4)
[2018-06-29 20:02] LABS: INR 0.99
[2018-06-29 20:03] LABS: PARTIAL THROMBOPLASTIN TIME 31.8 seconds (23.8-35.5)
[2018-06-29 20:13] LABS: ALBUMIN 3.5 g/dL (3.5-5.0); ALBUMIN/GLOBULIN RATIO 0.9 (0.8-2.0); ANION GAP 19.5 mmol/L (8-16); CALCIUM 10.2 mg/dL (8.4-10.2); CREATININE, SERUM 1.26 mg/dL (0.57-1.11); MAGNESIUM 1.5 MG/DL (1.3-2.1)
[2018-06-29 20:14] LABS: POTASSIUM 2.5 mmol/L (3.5-5.1)
[2018-06-29 20:20] LABS: CREATINE KINASE MB 3.3 ng/mL (0-5.0)
[2018-06-29] MEDS ORDERED: VANCOMYCIN 1GM/NS 250 ML 250 ML IV ONE (20:30)
[2018-06-29 20:34] LABS: B-TYPE NATRIURETIC PEPTIDE2 63.1 pg/mL (0-100)
--- NOTE | 2018-06-29 20:37 | Diagnostic Imaging Report ---
History:Altered mental status Comparison studies: Head CT on 01/20/2018 Technique: Axial images were obtained from the skull base to the vertex. Coronal and sagittal images reconstructed from the axial data. Dose modulation, iterative reconstruction, and/or weight based adjustment of the mA/kV was utilized to reduce the radiation dose to as low as reasonably achievable. Intravenous contrast: None Findings: Scalp/skull: No abnormalities. Extra-axial spaces: No masses. No fluid collections. Brain sulci: Moderately prominent. Ventricles: Moderate compensatory dilatation. No hydrocephalus. Parenchyma: Ill-defined, confluent hypodensities in the supratentorial white matter are small vessel ischemic changes. No masses, hemorrhage, acute or chronic cortical vascular insults. Sellar/suprasellar region: No abnormalities. Craniocervical junction: Patent foramen magnum. No Chiari one malformation. Incidental findings: Subtle atherosclerotic calcifications in the carotid siphons . Impression: No acute abnormalities. No changes when compared to 01/20/2018 Chronic findings: 1. Moderate generalized volume loss. 2. Moderate supratentorial white matter small vessel ischemic changes. Signed by: Dr. Kyle Goff M.D. on 06/29/2018 8:32 PM
[2018-06-29 20:47] LABS: BILIRUBIN,URINE NEGATIVE (NEGATIVE); CLARITY,URINE CLEAR (CLEAR); COLOR,URINE YELLOW (YELLOW); KETONES,URINE TRACE (NEGATIVE); LEUKOCYTE ESTERASE ,URINE NEGATIVE (NEGATIVE); NITRITE,URINE NEGATIVE (NEGATIVE); PROTEIN,URINE DIPSTICK NEGATIVE (NEGATIVE); URINE UROBILINOGEN 0.2 mg/dL (0.2 - 1)
[2018-06-29] MEDS ORDERED: POTASSIUM CHLORIDE 20 MEQ TAB CR PO STA (20:47)
[2018-06-29 20:55] LABS: EPITHELIAL CELLS,URINE FEW /LPF; RBC,URINE 0-5 /HPF (0-5); WBC,URINE (MAN) 0-5 /HPF (0-5)
--- NOTE | 2018-06-29 20:57 | Diagnostic Imaging Report ---
EXAM: CHEST SINGLE (PORTABLE), AP 1 view INDICATION: Altered mental status, right hip pain COMPARISON: None FINDINGS: LINES/TUBES: None LUNGS: No consolidations or edema. PLEURA: No effusions or pneumothorax. HEART AND MEDIASTINUM: Normal size and contour. BONES AND SOFT TISSUES: No acute findings. IMPRESSION: No acute thoracic abnormality. Signed by: Dr. Dimple Paul M.D. on 06/29/2018 8:51 PM
--- NOTE | 2018-06-29 20:58 | Diagnostic Imaging Report ---
EXAM: PELVIS AP 1-2 VIEWS INDICATION: Altered mental status, right hip pain COMPARISON: None FINDINGS: BONES: No acute fractures. Chronic exostosis off the left iliac wing. JOINTS: No malalignment. SOFT TISSUES: Normal IMPRESSION: No evidence of a pelvic fracture. Signed by: Dr. Dimple Paul M.D. on 06/29/2018 8:52 PM
[2018-06-29] MEDS ORDERED: KCL 20MEQ/.9 SOD CHL 1,000 ML IV ONE (21:00)
[2018-06-29 21:06] LABS: BAND NEUTROPHILS % (MANUAL) 3 %; LYMPHOCYTES % (MANUAL) 3 % (19-48); MONOCYTES % (MANUAL) 5 % (3.4-9.0); NEUTROPHILS % (MANUAL) 89 % (40-74); PLATELET ESTIMATE ADEQUATE; PLATELET MORPHOLOGY COMMENT NORMAL; RBC MORPHOLOGY COMMENT NORMAL
[2018-06-29] MEDS ORDERED: ACETAMINOPHEN 1000 MG/100 ML IV PRN (22:30)
[2018-06-29] MEDS ORDERED: DEXTROSE 50% SYRINGE 50 ML IV PRN (22:30)
[2018-06-29] MEDS ORDERED: ONDANSETRON HCL INJ 2 MG/ML VIAL IV PRN (22:30)
[2018-06-29] MEDS: POTASSIUM CHLORIDE 10MEQ/100ML 100 ML IV SCH (23:26)
[2018-06-30] VITALS (59 sets, daily range): BP systolic 77–131; BP diastolic 38–112
[2018-06-30] MEDS ORDERED: SODIUM CHLORIDE 0.9% 1000ML 1,000 ML ONE ×2 (01:03→01:29)
[2018-06-30] MEDS ORDERED: SODIUM CHLORIDE 0.9% 1000ML 1,000 ML IV STA (01:31)
[2018-06-30] MEDS: POTASSIUM CHLORIDE 10MEQ/100ML 100 ML IV SCH ×2 (02:29→06:03)
[2018-06-30] MEDS ORDERED: ASPIRIN81 MG PO (03:38)
[2018-06-30] MEDS ORDERED: VITAMIN D1000 UNI1 PO (03:38)
[2018-06-30] MEDS ORDERED: ADVAIR 250-501 EACH INH (03:38)
[2018-06-30] MEDS ORDERED: BUSPIRONE HCL5 MG PO (03:38)
[2018-06-30] MEDS ORDERED: TRIAMCINOLONE A15 G3 TOP (03:38)
[2018-06-30] MEDS ORDERED: OXYBUTYNIN CHLOR5 MG PO (03:38)
[2018-06-30] MEDS ORDERED: SODIUM CHLORIDE 0.9% 1000ML 1,000 ML IV ONE (05:00)
[2018-06-30 06:30] LABS: BASOPHILS % 0.2 % (0.0-1.0); HEMATOCRIT 36.6 % (34.2-44.1); HEMOGLOBIN 11.5 g/dL (12.0-16.0); LYMPHOCYTES # (AUTO) 0.8 (1.0-3.2); LYMPHOCYTES % 4.6 % (18.0-39.1); MEAN CORPUSCULAR HEMOGLOBIN 28.8 pg (28-32); MEAN CORPUSCULAR HGB CONC 31.4 g/dL (31-35); MEAN CORPUSCULAR VOLUME 91.7 fL (81-99); MONOCYTES # (AUTO) 1.1 (0.2-0.8); MONOCYTES % 6.8 % (4.4-11.3); NEUTROPHILS # (AUTO) 14.4 (2.1-6.9); NEUTROPHILS % 87.4 % (38.7-80.0); PLATELET COUNT 149 x10e3/uL (140-360); RED BLOOD COUNT 3.99 x10e6/uL (3.6-5.1); RED CELL DISTRIBUTION WIDTH 15.1 % (11.7-14.4)
[2018-06-30] MEDS: INSULIN REGULAR, HUMAN 100 UNIT/1 ML 3ML VIAL SQ SCH ×4 (07:30→20:37)
[2018-06-30 08:30] LABS: ALANINE AMINOTRANSFERASE 12 IU/L (0-55); ALBUMIN 2.6 g/dL (3.5-5.0); ALBUMIN/GLOBULIN RATIO 0.9 (0.8-2.0); ALKALINE PHOSPHATASE 58 IU/L (40-150); ANION GAP 15.4 mmol/L (8-16); BLOOD UREA NITROGEN 26 mg/dL (7-26); BUN/CREATININE RATIO 31 (6-25); CALCIUM 8.4 mg/dL (8.4-10.2); CARBON DIOXIDE 29 mmol/L (22-29); CHLORIDE 103 mmol/L (98-107); CHOL/HDL RATIO 3.3 (3.0-3.6); CHOLESTEROL 101 MD/DL (0-199); CREATININE, SERUM 0.84 mg/dL (0.57-1.11); EST GLOMERULAR FILTRATION RATE > 60 ML/MIN (60-); GLUCOSE 106 mg/dL (74-118); HDL CHOLESTEROL 31 MG/DL (40-60); LDL CHOLESTEROL 57 MG/DL (60-130); MAGNESIUM 1.5 MG/DL (1.3-2.1); POTASSIUM 3.4 mmol/L (3.5-5.1); SODIUM 144 mmol/L (136-145); TRIGLYCERIDES 65 MG/DL (0-149)
[2018-06-30] MEDS ORDERED: MEROPENEM 1 GM VIAL ONE (08:34)
[2018-06-30 08:57] LABS: CREATINE KINASE MB 7.4 ng/mL (0-5.0)
[2018-06-30] MEDS ORDERED: MEROPENEM 1GRAM 1 GM in SODIUM CHLORIDE 0.9% 100 ML 100 ML IV SCH (09:00)
[2018-06-30] MEDS: ACETAMINOPHEN 325 MG TAB PO PRN ×2 (09:08→15:47)
[2018-06-30] MEDS ORDERED: HYOSCYAMINE 0.125 MG TAB PO PRN (09:15)
[2018-06-30] MEDS ORDERED: DIAZEPAM 5 MG TAB PO PRN (09:15)
--- NOTE | 2018-06-30 10:08 | History and Physical ---
The patient came from [facility]. CHIEF COMPLAINT: Sepsis with shock, leukocytosis and fever. Patient is a 72-year-old female who came to the emergency room with decrease in mental status, and fever. The patient had a urinalysis that was unremarkable. However, she had some swelling of both legs, worse on the left compared to the right with some redness along the thigh area. There is also increasing temperature noticed as well in the skin area. The patient did have some difficulty walking. She came from [facility] where she is staying. The patient is currently awake and alert, and answering commands. On admission, the patient has a WBC of 20,000 associated with lactic acidosis at 29.3. She also with fever of 102.6. Her blood pressure off and on was hypotensive, but responded to IV fluids. Patient is otherwise stable at this time. She is admitted for sepsis. PAST MEDICAL HISTORY: Including obesity, bilateral neuropathy, congestive heart failure, history of previous CHF, seizure disorder, reflux, anxiety, hypertension, lower extremity lymphedema, obstructive sleep apnea, previous CVA with right hemiparesis, peripheral vascular disease. PAST SURGICAL HISTORY: Rectal prolapse repair, cataract surgery, lens implant, C3 and C5 neck fusion, previous feeding tube placed and removed, femur fracture, hypothyroidism, previous sepsis back in January 2018. REVIEW OF SYSTEMS; General weakness, lower extremity pain, fever. ALLERGIES: NO KNOWN ALLERGIES. CURRENT MEDICATIONS: List was reviewed and available for review. PHYSICAL EXAMINATION VITAL SIGNS: T-max is 102.6, blood pressure 100/64, pulse rate 85, respirations 22. GENERAL: The patient is awake. She is not in any distress. HEENT: Normocephalic, atraumatic and anicteric. NECK: Supple grossly. PULMONARY: Diminished breath sounds bilaterally with some rales at base. CARDIOVASCULAR: S1 and S2. Regular rate and rhythm. ABDOMEN: Soft. Morbidly obese. EXTREMITIES: Bilateral 2+ edema. Some numbness in the left anterior thigh area. Pulses intact. NEUROLOGICAL: No new focal deficits. The patient has residual right-sided weakness. LABORATORY: WBC is 20, hemoglobin 13.8, hematocrit 42, and platelets is 197,000. Chemistry: Sodium is 140, potassium 2.5, chloride 91, bicarb 32, BUN 31 creatinine 1.3, glucose 150. Creatinine kinase is 44. Cardiac enzymes negative. Stool for occult blood negative. Urinalysis with trace ketone. Negative for leukocyte esterase. Coagulation is normal. IMPRESSION 1. Fever and not feeling well associated with dehydration: Patient does have sepsis. 2. Multiple chronic baseline problems. PLAN: Source of sepsis is not known. Empiric antibiotics. CT of chest, abdomen and pelvis without IV contrast. Consultation with Dr. Meade. Check blood culture and urine culture. Lower extremity ultrasound. DVT prophylaxis. Job#: [id number] CA
[2018-06-30] MEDS: DEPAKOTE ER 500MG TAB(ONCE DAILY) PO SCH ×2 (10:38→18:28)
[2018-06-30] MEDS: TRAMADOL HCL 50 MG TAB PO PRN (10:38)
[2018-06-30] MEDS: GABAPENTIN 300 MG CAP PO SCH ×2 (10:38→20:37)
[2018-06-30] MEDS: DULOXETINE HCL 30 MG DELAYED RELEASE PO SCH ×2 (10:38→18:28)
[2018-06-30] MEDS ORDERED: CEFEPIME HCL 2 GM VIAL IV SCH (15:00)
--- NOTE | 2018-06-30 16:06 | Consultation ---
DATE OF CONSULTATION: HISTORY OF PRESENT ILLNESS: This patient who is a 72-year-old white female. She was from [facility]. She was brought here for fever and chills. The patient who really does not have specific complains. She comes in to the hospital with fever and altered mental status. Apparently, she was brought here. She was hypotensive when she first came. Her white count was 20,000. Her lactic acid was 29. Temperature was 102 so patient was admitted, started on broad-spectrum antibiotic. Infectious disease was consulted. She is currently lying in bed comfortably. She is not feeling well. In general, no specific complaints, but apparently since she came here she says she is feeling better. PAST MEDICAL HISTORY: Obesity, bilateral neuropathy, congestive heart failure. She has seizure disorder, reflux disease, anxiety, hypernatremia, bilateral lower extremities edema, lymphedema, obstructive sleep apnea, previous CVA with right hemiparesis, and peripheral vascular disease. PAST SURGICAL HISTORY: Rectal prolapse surgery, cataract surgery, lens implant, C3, C5 neck fusion, PEG tube placement long time ago, removed, femur fracture, hypothyroidism, and septic shock in January 2018. REVIEW OF SYSTEMS: She is just not feeling well, fever. There is no specific pain that she complain of. There is no nausea. No vomiting. No diarrhea. She does have a Tomas. Joints, there are no specific complaints at the time of admission above also. Otherwise, review of systems all negative. LABORATORY DATA: White count on admission 20.01, hemoglobin 13, hematocrit 42. White count now 16.5. Sodium 144, potassium 3.4, and creatinine 0.84. Blood culture is still pending. PHYSICAL EXAMINATION GENERAL: She is currently alert, oriented, follows command, does not seem to be in acute distress. VITAL SIGNS: Stable. Currently afebrile. HEENT: She is nonicteric. NECK: Supple. CHEST: Clear. HEART: S1 and S2. ABDOMEN: Soft. Bowel sound present. No tenderness. EXTREMITIES: No edema. IMPRESSION AND PLAN: Sepsis present on admission, source is unclear. She is currently doing well with the meropenem. Continue with 500 q.6 hours. She also received 1 dose of vancomycin. We would obtain CT abdomen and pelvis. We will follow with you. Job#: [id number] HARRY
[2018-06-30] MEDS: SALMETEROL/FLUTICASONE 250/50 INH SCH ×2 (17:00→19:30)
[2018-06-30] MEDS: OXYBUTYNIN CHLORIDE 5 MG TAB PO SCH (18:28)
[2018-06-30] MEDS: ENOXAPARIN SOD INJ 40 MG/0.4 ML SYR SC SCH (18:28)
--- NOTE | 2018-06-30 18:28 | Diagnostic Imaging Report ---
EXAMINATION: CT of the abdomen and pelvis with contrast. TECHNIQUE: Spiral CT images of the abdomen and pelvis were performed from the lung bases to the lesser trochanters after the intravenous administration of 100 cc of Isovue 370 and the oral administration of water. Coronal and sagittal reformatted images were obtained. COMPARISON: None. CLINICAL HISTORY:AMS, dehydration, fever DISCUSSION: ABDOMEN/PELVIS: LOWER THORAX:Please see CT chest performed same date HEPATOBILIARY: Decreased attenuation of the hepatic parenchyma compared to the spleen, consistent with fatty infiltration. Ill-defined 1.5 x 1.9 cm hypodense lesion in hepatic segment II (series 5, image 17). No other focal lesions. No intra or extrahepatic biliary ductal dilation. GALLBLADDER: No radio-opaque stones or sludge. No wall thickening. SPLEEN: No splenomegaly. PANCREAS: No focal masses or ductal dilatation. Fatty replacement predominantly involving the head. ADRENALS: No adrenal nodules. KIDNEYS/URETERS: No hydronephrosis, stones, or solid mass lesions. PELVIC ORGANS/BLADDER: Bladder is decompressed and there is a Tomas catheter in place. No adnexal masses. PERITONEUM/RETROPERITONEUM: No free air or fluid. LYMPH NODES: No intra-abdominal, retroperitoneal, pelvic or inguinal lymphadenopathy. VESSELS: The celiac trunk,superior and inferior mesenteric and bilateral renal arteries are patent The portal, superior mesenteric and splenic veins are patent. Atherosclerotic calcification of the distal abdominal aorta and proximal iliac vessels. GI TRACT: No bowel dilation or evidence of obstruction. Moderate amount of retained stool in the colon. Appendix is well identified and normal in caliber. BONES AND SOFT TISSUE: No aggressive lytic lesions. Generalized osteopenia. Age-indeterminate compression deformity of the L4 vertebral body. Bilateral gluteal region calcified injection granulomas. IMPRESSION: 1. No acute abdominopelvic abnormalities. No bowel dilation or evidence of obstruction. No ascites or well-defined fluid collections. 2. Moderate amount of retained stool in the colon. 3. Hepatic steatosis. 4. Ill-defined 1.9 cm hypodense lesion in hepatic segment II, which is indeterminate. This may be further assessed with contrast-enhanced CT or MRI with liver mass protocol on a nonemergent basis. Signed by: Dr. Ronnell Jay M.D. on 06/30/2018 6:25 PM
--- NOTE | 2018-06-30 18:33 | Diagnostic Imaging Report ---
EXAMINATION: CT scan of the chest without contrast. TECHNIQUE: Spiral CT images of the chest were performed from the lung apices to the level of the adrenal glands. No intravenous contrast was administered per physician's request. Coronal and sagittal reformatted images were obtained. COMPARISON: CT chest 01/16/2018 CLINICAL HISTORY:AMS, dehydration, fever DISCUSSION: ABSENCE OF INTRAVENOUS CONTRAST DECREASES SENSITIVITY FOR DETECTION OF FOCAL LESIONS AND VASCULAR PATHOLOGY. LINES/TUBES: None. LUNGS AND AIRWAYS: Intralobular septal thickening and mild ground glass opacities extending from the margarita. Multiple linear opacities in bilateral lower lobes, likely reflect subsegmental atelectasis or scarring. Mild bilateral lower lobe compressive atelectasis. No consolidation . No masses or nodules. The airways are clear, without endobronchial lesions. PLEURA: Small bilateral pleural effusions, right greater than left. HEART AND MEDIASTINUM: Thyroid is unremarkable. Heart size is normal. No pericardial effusion. Aorta is nonaneurysmal. Main pulmonary artery is enlarged, measuring approximately 3.2 cm LYMPH NODES: There is no mediastinal, hilar or axillary lymphadenopathy. ABDOMEN: Please see CT of abdomen and pelvis performed same day for further detail BONES AND SOFT TISSUES: No aggressive lytic lesions. Minimal degenerative disc changes in the thoracic spine. IMPRESSION: 1. Findings likely represent interstitial pulmonary edema/fluid overload. No consolidation or masses. 2. Enlarged main pulmonary artery suggesting pulmonary hypertension. Signed by: Dr. Ronnell Jay M.D. on 06/30/2018 6:30 PM
[2018-06-30] MEDS ORDERED: SODIUM CHLORIDE 0.9% 50ML 50 ML ONE (19:43)
[2018-06-30] MEDS ORDERED: IOPAMIDOL 370 MG/ML 200 ML INFUS..BTL INJ ONE (19:43)
[2018-06-30] MEDS: DIPHENHYDRAMINE HCL 25 MG CAP PO SCH (20:37)
[2018-06-30] MEDS: VANCOMYCIN 1GM/NS 250 ML 250 ML IV SCH (22:04)
[2018-07-01] VITALS (19 sets, daily range): BP systolic 97–127; BP diastolic 49–75
[2018-07-01 04:44] LABS: BASOPHILS % 0.4 % (0.0-1.0); EOSINOPHILS # (AUTO) 0.1 (0.0-0.4); EOSINOPHILS % 1.1 % (0.0-6.0); HEMATOCRIT 34.1 % (34.2-44.1); HEMOGLOBIN 10.8 g/dL (12.0-16.0); LYMPHOCYTES # (AUTO) 1.4 (1.0-3.2); LYMPHOCYTES % 18.9 % (18.0-39.1); MEAN CORPUSCULAR HGB CONC 31.7 g/dL (31-35); MEAN CORPUSCULAR VOLUME 91.4 fL (81-99); MONOCYTES # (AUTO) 0.9 (0.2-0.8); MONOCYTES % 12.6 % (4.4-11.3); NEUTROPHILS # (AUTO) 4.7 (2.1-6.9); NEUTROPHILS % 66.6 % (38.7-80.0); PLATELET COUNT 126 x10e3/uL (140-360); RED BLOOD COUNT 3.73 x10e6/uL (3.6-5.1); RED CELL DISTRIBUTION WIDTH 15.6 % (11.7-14.4)
[2018-07-01 05:09] LABS: ANION GAP 13.7 mmol/L (8-16); BLOOD UREA NITROGEN 19 mg/dL (7-26); BUN/CREATININE RATIO 24 (6-25); CALCIUM 9.1 mg/dL (8.4-10.2); CARBON DIOXIDE 30 mmol/L (22-29); CHLORIDE 102 mmol/L (98-107); CREATININE, SERUM 0.78 mg/dL (0.57-1.11); EST GLOMERULAR FILTRATION RATE > 60 ML/MIN (60-); GLUCOSE 96 mg/dL (74-118); MAGNESIUM 1.5 MG/DL (1.3-2.1); PHOSPHORUS 2.4 MG/DL (2.3-4.7); POTASSIUM 3.7 mmol/L (3.5-5.1); SODIUM 142 mmol/L (136-145)
[2018-07-01] MEDS: LEVOTHYROXINE SODIUM 25 MCG TABLET PO SCH (05:23)
[2018-07-01] MEDS: LEVOTHYROXINE SODIUM 112 MCG TAB PO SCH (05:23)
[2018-07-01 05:34] LABS: THYROID STIMULATING HORMONE 0.777 uIU/mL (0.350-4.940)
[2018-07-01 06:06] LABS: FOLATE 8.4 ng/mL (7.0-15.4)
[2018-07-01] MEDS: SALMETEROL/FLUTICASONE 250/50 INH SCH ×2 (07:15→19:00)
[2018-07-01 07:20] LABS: BAND NEUTROPHILS % (MANUAL) 1 %; BLAST CELLS % MANUAL 1; LYMPHOCYTES % (MANUAL) 22 % (19-48); MONOCYTES % (MANUAL) 8 % (3.4-9.0); NEUTROPHILS % (MANUAL) 66 % (40-74)
[2018-07-01 07:21] LABS: ANISOCYTOSIS SLIGHT; HYPOCHROMASIA SLIGHT; PLATELET ESTIMATE SLIGHTLY DECREASED; PLATELET MORPHOLOGY COMMENT NORMAL; RBC MORPHOLOGY COMMENT NORMAL
[2018-07-01] MEDS: INSULIN REGULAR, HUMAN 100 UNIT/1 ML 3ML VIAL SQ SCH ×4 (07:30→21:00)
[2018-07-01] MEDS: OXYBUTYNIN CHLORIDE 5 MG TAB PO SCH ×2 (08:29→16:31)
[2018-07-01] MEDS: DULOXETINE HCL 30 MG DELAYED RELEASE PO SCH ×2 (08:29→16:30)
[2018-07-01] MEDS: ASPIRIN 81 MG CHEW TAB PO SCH (08:29)
[2018-07-01] MEDS: DEPAKOTE ER 500MG TAB(ONCE DAILY) PO SCH ×2 (08:29→16:31)
[2018-07-01] MEDS: BUSPIRONE HCL 5 MG TAB PO SCH (08:29)
[2018-07-01] MEDS: GABAPENTIN 300 MG CAP PO SCH ×2 (08:29→22:35)
[2018-07-01] MEDS: POTASSIUM CHLORIDE 20 MEQ TAB CR PO SCH (08:29)
[2018-07-01] MEDS: CEFEPIME HCL 2 GM VIAL IV SCH ×2 (08:29→22:33)
[2018-07-01] MEDS ORDERED: ARTIFICIAL TEARS (OPTH) 15 ML BTL OU PRN (09:15)
[2018-07-01] MEDS: VANCOMYCIN 1GM/NS 250 ML 250 ML IV SCH ×2 (09:24→22:33)
[2018-07-01] MEDS: TRAMADOL HCL 50 MG TAB PO PRN ×3 (10:15→22:55)
[2018-07-01] MEDS: ACETAMINOPHEN 325 MG TAB PO PRN (12:26)
[2018-07-01] MEDS ORDERED: INFLUENZA VIRUS VAC SPLIT INJ 0.5 ML SYR IM SCH (16:30)
[2018-07-01] MEDS: ENOXAPARIN SOD INJ 40 MG/0.4 ML SYR SC SCH (16:31)
[2018-07-01] MEDS: DIPHENHYDRAMINE HCL 25 MG CAP PO SCH (22:33)
[2018-07-01] MEDS ORDERED: SODIUM CHLORIDE 0.9% 250ML 250 ML ONE (22:51)
[2018-07-02] VITALS: BP 123/80
[2018-07-02 04:00] VITALS: BP 115/63
[2018-07-02 05:19] LABS: BASOPHILS % 0.6 % (0.0-1.0); EOSINOPHILS # (AUTO) 0.2 (0.0-0.4); EOSINOPHILS % 4.2 % (0.0-6.0); HEMATOCRIT 33.8 % (34.2-44.1); HEMOGLOBIN 10.7 g/dL (12.0-16.0); LYMPHOCYTES # (AUTO) 0.9 (1.0-3.2); LYMPHOCYTES % 18.1 % (18.0-39.1); MEAN CORPUSCULAR HEMOGLOBIN 28.7 pg (28-32); MEAN CORPUSCULAR HGB CONC 31.7 g/dL (31-35); MEAN CORPUSCULAR VOLUME 90.6 fL (81-99); MONOCYTES # (AUTO) 0.8 (0.2-0.8); MONOCYTES % 14.9 % (4.4-11.3); NEUTROPHILS # (AUTO) 3.1 (2.1-6.9); NEUTROPHILS % 61.4 % (38.7-80.0); PLATELET COUNT 127 x10e3/uL (140-360); RED BLOOD COUNT 3.73 x10e6/uL (3.6-5.1); RED CELL DISTRIBUTION WIDTH 15.3 % (11.7-14.4)
[2018-07-02 05:38] LABS: ANION GAP 15.5 mmol/L (8-16); BLOOD UREA NITROGEN 13 mg/dL (7-26); BUN/CREATININE RATIO 21 (6-25); CALCIUM 9.2 mg/dL (8.4-10.2); CARBON DIOXIDE 29 mmol/L (22-29); CHLORIDE 101 mmol/L (98-107); CREATININE, SERUM 0.63 mg/dL (0.57-1.11); EST GLOMERULAR FILTRATION RATE > 60 ML/MIN (60-); GLUCOSE 90 mg/dL (74-118); POTASSIUM 3.5 mmol/L (3.5-5.1); SODIUM 142 mmol/L (136-145)
[2018-07-02] MEDS: LEVOTHYROXINE SODIUM 25 MCG TABLET PO SCH (06:08)
[2018-07-02] MEDS: LEVOTHYROXINE SODIUM 112 MCG TAB PO SCH (06:08)
[2018-07-02 07:30] VITALS: BP 114/63
[2018-07-02] MEDS: INSULIN REGULAR, HUMAN 100 UNIT/1 ML 3ML VIAL SQ SCH ×2 (07:30→11:30)
[2018-07-02 07:59] VITALS: BP 114/63
[2018-07-02] MEDS: SALMETEROL/FLUTICASONE 250/50 INH SCH (08:00)
[2018-07-02] MEDS: CEFEPIME HCL 2 GM VIAL IV SCH (08:25)
[2018-07-02] MEDS: BUSPIRONE HCL 5 MG TAB PO SCH (08:26)
[2018-07-02] MEDS: DULOXETINE HCL 30 MG DELAYED RELEASE PO SCH (08:26)
[2018-07-02] MEDS: ASPIRIN 81 MG CHEW TAB PO SCH (08:26)
[2018-07-02] MEDS: TRAMADOL HCL 50 MG TAB PO PRN (08:27)
[2018-07-02] MEDS: DEPAKOTE ER 500MG TAB(ONCE DAILY) PO SCH (08:27)
[2018-07-02] MEDS: GABAPENTIN 300 MG CAP PO SCH (08:27)
[2018-07-02] MEDS: OXYBUTYNIN CHLORIDE 5 MG TAB PO SCH (08:27)
[2018-07-02] MEDS: POTASSIUM CHLORIDE 20 MEQ TAB CR PO SCH (08:38)
[2018-07-02] MEDS: VANCOMYCIN 1GM/NS 250 ML 250 ML IV SCH (09:42)
--- NOTE | 2018-07-02 11:20 | Discharge Summary ---
FINAL DIAGNOSES 1. Sepsis with shock. 2. Fever and leukocytosis, resolved. 3. Bacteremia, gram-positive joselin. 4. Dehydration, altered mental status and acute renal failure secondary to sepsis with shock. Patient and adamantly want to go back to the half-way today. I could not convince them to stay and continue with treatment. A blood culture grew out gram-positive joselin with sensitivity pending, but they absolutely want to go back to the half-way. As a compromise decision, will give the patient IV antibiotic. SUMMARY: This 72-year-old female came in with severe sepsis with shock, hypotensive, acute renal failure with low blood pressure. Required multiple boluses of IV fluids. Patient had leukocytosis, which is now resolved. Patient is doing much better. She is stable. Patient has gram-positive joselin on blood cultures, pending on sensitivity. She, however, is back to her usual baseline. The patient and spouse adamantly want to go back to the half-way. They would not want to stay here since she feels better. The patient would want to go ahead and continue with IV antibiotics. We will continue the patient's IV antibiotics, Rocephin 1 gram q.12 and continue with vancomycin 1 gram daily. The patient is otherwise stable. Leukocytosis resolved. WBC is 5.0. The renal function BUN and creatinine are 13 and 0.63 respectively. The patient is stable and discharged back to the half-way today with 8 doses total of Rocephin and 4 doses of vancomycin 1 gram daily. The patient is otherwise stable and discharged back to the half-way today per spouse and the patient adamantly requesting. Job#: [id number]
[2018-07-02 12:00] VITALS: BP 123/67
[2018-07-02] MEDS: ACETAMINOPHEN 325 MG TAB PO PRN (13:18)
== END 2018-07-02 14:15 | DRG 871 ==
LOC: ER 19:33 → ERHOLD 22:58 → ICU 06-30 03:04 → MED/SURG2 07-01 10:07
PROVIDERS: ADMIT Internal Medicine; ATTEND Internal Medicine
DX: A41.89 Other specified sepsis (principal); R65.21 Severe sepsis with septic shock; I69.351 Hemiplegia and hemiparesis following cerebral infarction affecting right dominant side; N17.9 Acute kidney failure, unspecified; Z68.41 Body mass index [BMI] 40.0-44.9, adult; E86.0 Dehydration; E87.6 Hypokalemia; G62.9 Polyneuropathy, unspecified; E66.9 Obesity, unspecified; I50.9 Heart failure, unspecified; R56.9 Unspecified convulsions; K21.9 Gastro-esophageal reflux disease without esophagitis; G47.33 Obstructive sleep apnea (adult) (pediatric); Z53.29 Procedure and treatment not carried out because of patient's decision for other reasons
CPT/HCPCS: 36415; 51700; 70450; 71045; 71250; 72170; 74177; 80048; 80053; 80061; 80202; 81001; 82270; 82550; 82553; 82607; 82746; 82948; 83605; 83735; 83880; 84100; 84443; 84484; 85025; 85610; 85730; 87040; 87071; 87086; 87205; 93005; 93970; 94640; 97139; 99285; J0692; J1650; J2185; J3370; J3480; J7030; J7050; Q9967

== ENCOUNTER 2019-11-19 13:26 | Inpatient (IN) | payer MEDICARE, OTHER ==
[~2019-11-19] VITALS: Ht 160 cm; Wt 108.9 kg
[~2019-11-19 13:26] MED LIST changes: +ADVAIR 250-501 EACH INH; +ASPIRIN81 MG PO; +BUSPIRONE HCL5 MG PO; +OXYBUTYNIN CHLOR5 MG PO; +TRIAMCINOLONE A15 G3 TOP; +VITAMIN D1000 UNI1 PO
--- OUTSIDE RECORDS SUMMARY | 2019-11-19 13:42 | XMS REPORT | Summary of Care ---
Author Author Daniel Suarez M.A.senjurgen Eason Unknown Address Unknown Phone Unavailable Care Team Providers Care Porter Luggage Name Role Phone BEATRICE VALE M.D. Unavailable Unavailable FARHAD SEARS MD, HERMELINDA CONNER Unavailable Unavailable Functional Status Name Dates Details Functional status health issues are not documented Status: Name Dates Details Cognitive status health issues are not documented Status: Problems Name Dates Details Limb pain (729.5, M79.609) Status: Active Pain of right hand (729.5, M79.641) Status: Active Swelling of right hand (729.81, M79.89) Status: Active Medications Name Dates Details Sulfamethoxazole-Trimethoprim 800-160 MG Oral Tablet TAKE 1 TABLET TWICE DAILY Quantity: 14 BEATRICE VALE M.D. * Start : 11-Jul-2018 Active Allergies and Adverse Reactions Name Dates Details Allergy history not documented Status: Procedures Procedure Dates Details Procedures not documented Immunization Name Dates Details Immunizations not documented Social History Name Dates Details Unknown if ever smoked Vital Signs Date Test Result Details No Known Vitals to report Results Date Description Value Details [id number] [U] XRAY HAND MIN 3 VWS RIGHT 41702 XR HAND MIN 3 VWS RIGHT Images acquired, not reported on this accession number. Plan of Care Name Dates Details Planned Observations Planned Goals not documented Interventions Provided Medication Changes* Sulfamethoxazole-Trimethoprim 800-160 MG Oral Tablet - Start Labs/Procedures/Imaging* [U] XRAY HAND MIN 3 VWS RIGHT [id number]; Done: 11 Jul 2018 Instructions Name Dates Details Instructions not documented Encounters Appointment; TYRELL SERRANO M.D. Encounter Diagnosis: Problem not documented On: 08-May-2018 13:30 Appointment; TYRELL SERRANO M.D. Encounter Diagnosis: Problem not documented On: 22-May-2018 14:00 Appointment; BEATRICE VALE M.D. Encounter Diagnosis: Problem not documented On: 11-Jul-2018 16:00
--- OUTSIDE RECORDS SUMMARY | 2019-11-19 13:42 | XMS REPORT | Summary of Care ---
Author Author [facility] - Health Organization [facility] - Health Address Unknown Phone Unavailable Care Team Providers Care Spot Welder Name Role Phone Dario Rowe S PCP Reason for Visit * Reason Comments Hearing Problem Encounter Details Care Team Description Date Type Department Nannette Zheng, PHD [address] [facility] [id number] [place], [place] [id number] Mariposa Shelley AUD [address] [place] [id number] Sensorineural hearing loss (SNHL) of both ears (Primary Dx) 06/24/2019 Ancillary [facility] [address] [place] [address] Allergies Not on Filedocumented as of this encounter (statuses as of 06/26/2019) Medications Not on filedocumented as of this encounter (statuses as of 06/26/2019) Active Problems Not on filedocumented as of this encounter (statuses as of 06/26/2019) Social History Date Tobacco Use Types Packs/Day Years Used Never Assessed Sex Assigned at Date Recorded Not on file Industry Job Start Date Occupation Not on file Not on file Not on file Travel End Travel History Travel Start No recent travel history available. documented as of this encounter Last Filed Vital Signs Not on filedocumented in this encounter Progress Notes * Mariposa Shelley AUD - 06/24/2019 11:30 AM CDT Audiogram/Hearing Evaluation will be scanned and will be available in Chart Revi ew under the Procedures tab. Laure Schaffer, [facility] Board Certified Clinical Truck Driver Salesperson documented in this encounter Plan of Treatment Care Team Description Date Type Specialty Nannette Zheng, PHD [id number] [place] [address] [phone] 10/05/2019 Ancillary Visit Audiology Health Maintenance Due Date Last Done Comments DTaP,Tdap,and Td Vaccines 1963 (1 - Tdap) MAMMOGRAM 1984 COLONOSCOPY 1994 Zoster Recombinant 1994 Vaccine (SHINGRIX) (1 of 2) Medicare Wellness Visit 2009 Osteoporosis Screening 2009 PNEUMOCOCCAL VACCINES 65+ 2009 (1 of 2 - PCV13) INFLUENZA VACCINE (#1) 2019 documented as of this encounter Results Not on filedocumented in this encounter Visit Diagnoses Diagnosis Sensorineural hearing loss (SNHL) of both ears - Primary documented in this encounter Insurance Type Payer Benefit Subscriber ID Effective Phone Address Plan / Dates Group Medicare Adv PPO PARKER GIULIANA GIORDANO [id number] 2019-[facility] documented as of this encounter
[2019-11-19] MEDS ORDERED: ASPIRIN 81 MG CHEW TAB PO ONE (13:45)
--- NOTE | 2019-11-19 14:42 | Diagnostic Imaging Report ---
EXAM: CHEST 2 VIEWS DATE: 11/19/2019 1:35 PM INDICATION: Pain, cough COMPARISON: 06/29/2018 FINDINGS: Linear opacity noted within the left lower lung zone suggestive of subsegmental atelectasis. The lungs are otherwise symmetrically expanded without evidence for large focal consolidation, pneumothorax, or significant pleural effusion. The cardiomediastinal silhouette is within normal limits. Mild tortuosity noted of the thoracic aorta. Degenerative changes noted at the visualized spine. No acute osseous abnormalities identified. IMPRESSION: Subsegmental atelectasis noted within the left lower lung zone. No other acute cardiopulmonary process identified. Signed by: Dr. Da Fisher MD on 11/19/2019 2:40 PM
[2019-11-19 15:11] LABS: BASOPHILS # (AUTO) 0.1 (0.0-0.1); BASOPHILS % 0.5 % (0.0-1.0); EOSINOPHILS # (AUTO) 0.2 (0.0-0.4); HEMATOCRIT 39.8 % (34.2-44.1); HEMOGLOBIN 12.3 g/dL (12.0-16.0); LYMPHOCYTES # (AUTO) 1.2 (1.0-3.2); LYMPHOCYTES % 11.7 % (18.0-39.1); MEAN CORPUSCULAR HEMOGLOBIN 26.8 pg (28-32); MEAN CORPUSCULAR HGB CONC 30.9 g/dL (31-35); MEAN CORPUSCULAR VOLUME 86.7 fL (81-99); MONOCYTES # (AUTO) 1.4 (0.2-0.8); MONOCYTES % 13.2 % (4.4-11.3); NEUTROPHILS # (AUTO) 7.3 (2.1-6.9); NEUTROPHILS % 71.2 % (38.7-80.0); PLATELET COUNT 161 x10e3/uL (140-360); RED BLOOD COUNT 4.59 x10e6/uL (3.6-5.1); RED CELL DISTRIBUTION WIDTH 16.2 % (11.7-14.4)
[2019-11-19 15:31] LABS: ALANINE AMINOTRANSFERASE 32 IU/L (0-55); ALBUMIN 2.7 g/dL (3.5-5.0); ALBUMIN/GLOBULIN RATIO 0.8 (0.8-2.0); ALKALINE PHOSPHATASE 221 IU/L (40-150); ANION GAP 14.6 mmol/L (8-16); BLOOD UREA NITROGEN 8 mg/dL (7-26); BUN/CREATININE RATIO 12 (6-25); CALCIUM 8.9 mg/dL (8.4-10.2); CARBON DIOXIDE 24 mmol/L (22-29); CHLORIDE 105 mmol/L (98-107); CREATINE KINASE 22 IU/L (29-168); CREATININE, SERUM 0.65 mg/dL (0.57-1.11); EST GLOMERULAR FILTRATION RATE > 60 ML/MIN (60-); GLUCOSE 121 mg/dL (74-118); POTASSIUM 3.6 mmol/L (3.5-5.1); SODIUM 140 mmol/L (136-145)
[2019-11-19 15:35] LABS: CREATINE KINASE MB < 1.00 ng/mL (0-4.3)
[2019-11-19] MEDS ORDERED: IOPAMIDOL 370 MG/ML 200 ML INFUS..BTL INJ ONE (19:02)
[2019-11-19] MEDS ORDERED: SODIUM CHLORIDE 0.9% 50ML 50 ML ONE (19:02)
[2019-11-19] MEDS ORDERED: TRAMADOL HCL 50 MG TAB PO ONE (20:15)
--- NOTE | 2019-11-19 20:17 | Diagnostic Imaging Report ---
EXAM: CT Chest WITH contrast 11/19/2019 4:36 PM INDICATION: Chest pain. COMPARISON: 06/26/2018. TECHNIQUE: Chest was scanned utilizing a multidetector helical scanner from the lung apex through the level of the adrenal glands without administration of IV contrast. Coronal and sagittal reformations were obtained. Routine protocol was performed. IV CONTRAST: 100 cc Isovue 300. RADIATION DOSE: Total DLP: 507.30 mGy*cm Estimated effective dose: (DLP x 0.014 x size factor) mSv COMPLICATIONS: None FINDINGS: LINES/ TUBES: None. LUNGS AND AIRWAYS: No filling defects within the pulmonary arteries to suggest pulmonary embolism. Patchy groundglass density in the lower lobes suggestive of atelectasis. There is however mild bilateral lower lobe peribronchial thickening which may reflect a viral infection. PLEURA: Bilateral trace pleural effusions again observed. HEART AND MEDIASTINUM: The thyroid gland is normal. No mediastinal, hilar or axillary lymphadenopathy. The heart is normal in size.. There is no pericardial effusion. There are mild atherosclerotic calcifications in the aorta and coronary arteries. Diffuse dilatation of the esophagus. Diffuse wall thickening of the thoracic esophagus. UPPER ABDOMEN: Limited non-contrast views of the upper abdomen show nodular hepatic contour and heterogeneous low-attenuation with suspicion for multifocal masses.. Abnormal appearance of the gallbladder. The liver is enlarged measuring 15.47 m in AP dimension. There is external density fat stranding in the left upper quadrant particularly anterior to the spleen and anterior to the pancreatic tail which demonstrate a low-attenuation lesion measuring 2.5 cm on image 98 series 2. There appears to be enlarged mesenteric lymph nodes or implants in the left upper quadrant. BONES: There are degenerative changes in the thoracic spine. SOFT TISSUES: Posterior left shoulder muscle atrophy. IMPRESSION: 1. Findings may reflect a viral infection versus reactive airway disease. No focal consolidation. 2. No pulmonary embolism. 3. Marked abnormal appearance of the visualized abdomen, including suspicion for multifocal hepatic masses, splenomegaly, a pancreatic tail mass, and extensive stranding of the partially visualized left upper quadrant, which may represent an inflammatory, infectious or neoplastic process, with either mildly enlarged mesenteric lymph nodes, or mesenteric implants. Recommend further evaluation with dedicated CT of abdomen and pelvis, ideally triphasic liver mass protocol. 4. Diffuse wall thickening of the esophagus may represent esophagitis in the proper clinical setting. Signed by: Dr. Ethan Hook M.D. on 11/19/2019 8:15 PM
--- NOTE | 2019-11-19 20:44 | NUR ---
requesting for Pt to take home dose of Eliquis at this time states "it is beyond imperative", ER aware and okay with Pt taking medication.
[2019-11-19] MEDS ORDERED: MORPHINE SULFATE 2 MG/ML SYR 1ML IV PRN (21:00)
[2019-11-19] MEDS: ONDANSETRON HCL INJ 2MG/ML 2ML 2 MG/ML VIAL IV PRN (21:36)
[2019-11-19] MEDS: MORPHINE SULFATE INJ 4 MG/ML INJ 1ML IV PRN (21:38)
[2019-11-19] MEDS: SODIUM CHLORIDE 0.9% 1000ML 1,000 ML IV SCH (21:40)
--- NOTE | 2019-11-20 00:11 | NUR ---
Repeat Cardiac Enzymes drawn and sent to lab for analysis; Pt placed on hospital bed at this time.
[2019-11-20 01:04] LABS: CREATINE KINASE 20 IU/L (29-168); CREATINE KINASE MB < 1.00 ng/mL (0-4.3)
--- NOTE | 2019-11-20 04:20 | NUR ---
Pt placed on [place] at this time.
[2019-11-20] MEDS: ONDANSETRON HCL INJ 2MG/ML 2ML 2 MG/ML VIAL IV PRN ×2 (04:21→08:22)
[2019-11-20] MEDS: MORPHINE SULFATE INJ 4 MG/ML INJ 1ML IV PRN ×2 (04:22→08:22)
[2019-11-20] MEDS ORDERED: ADVAIR 100-501 EACH PO (05:40)
[2019-11-20] MEDS ORDERED: TYLENOL WITH C1 EACH PO (05:40)
[2019-11-20] MEDS ORDERED: MELATONIN3 MG PO (05:40)
[2019-11-20] MEDS ORDERED: DICYCLOMINE HCL10 MG PO (05:40)
[2019-11-20] MEDS ORDERED: ALBUTEROL0.63 MG/3 NEB (05:40)
[2019-11-20] MEDS ORDERED: VITAMIN D35000 UNI2 (05:40)
[2019-11-20] MEDS ORDERED: ALLOPURINOL100 MG PO (05:40)
[2019-11-20] MEDS ORDERED: TRAZODONE HCL50 MG PO (05:40)
[2019-11-20] MEDS ORDERED: LYRICA50 MG PO (05:40)
[2019-11-20] MEDS ORDERED: COLACE100 MG PO (05:40)
--- NOTE | 2019-11-20 06:16 | NUR ---
AM Labs collected and sent for analysis.
[2019-11-20 06:34] LABS: BASOPHILS # (AUTO) 0.1 (0.0-0.1); BASOPHILS % 0.7 % (0.0-1.0); EOSINOPHILS # (AUTO) 0.2 (0.0-0.4); EOSINOPHILS % 1.4 % (0.0-6.0); HEMATOCRIT 36.9 % (34.2-44.1); HEMOGLOBIN 11.4 g/dL (12.0-16.0); LYMPHOCYTES # (AUTO) 1.2 (1.0-3.2); LYMPHOCYTES % 11.4 % (18.0-39.1); MEAN CORPUSCULAR HEMOGLOBIN 26.2 pg (28-32); MEAN CORPUSCULAR HGB CONC 30.9 g/dL (31-35); MEAN CORPUSCULAR VOLUME 84.8 fL (81-99); MONOCYTES # (AUTO) 1.4 (0.2-0.8); MONOCYTES % 12.8 % (4.4-11.3); NEUTROPHILS # (AUTO) 7.8 (2.1-6.9); NEUTROPHILS % 72.7 % (38.7-80.0); PLATELET COUNT 146 x10e3/uL (140-360); RED BLOOD COUNT 4.35 x10e6/uL (3.6-5.1); RED CELL DISTRIBUTION WIDTH 15.9 % (11.7-14.4)
[2019-11-20 06:55] LABS: CREATINE KINASE 21 IU/L (29-168)
[2019-11-20 07:06] LABS: ALANINE AMINOTRANSFERASE 25 IU/L (0-55); ALBUMIN 2.4 g/dL (3.5-5.0); ALKALINE PHOSPHATASE 190 IU/L (40-150); ANION GAP 14.1 mmol/L (8-16); BLOOD UREA NITROGEN 8 mg/dL (7-26); BUN/CREATININE RATIO 15 (6-25); CALCIUM 8.1 mg/dL (8.4-10.2); CARBON DIOXIDE 23 mmol/L (22-29); CHLORIDE 104 mmol/L (98-107); CREATININE, SERUM 0.53 mg/dL (0.57-1.11); EST GLOMERULAR FILTRATION RATE > 60 ML/MIN (60-); GLUCOSE 99 mg/dL (74-118); POTASSIUM 4.1 mmol/L (3.5-5.1); SODIUM 137 mmol/L (136-145)
[2019-11-20] MEDS: SODIUM CHLORIDE 0.9% 1000ML 1,000 ML IV SCH (07:40)
[2019-11-20] MEDS ORDERED: ALBUTEROL/IPRATROPIUM 3 ML NEB NEB PRN (13:00)
[2019-11-20] MEDS ORDERED: MELATONIN 3 MG TAB PO PRN (13:00)
[2019-11-20] MEDS ORDERED: BUSPIRONE HCL 5 MG TAB PO PRN (13:00)
[2019-11-20] MEDS ORDERED: DOCUSATE SODIUM 100 MG CAP PO PRN (13:00)
[2019-11-20] MEDS ORDERED: DICYCLOMINE HCL 10 MG CAP PO PRN (13:00)
[2019-11-20] MEDS ORDERED: ACETAMINOPHEN 325 MG TAB PO PRN (13:15)
[2019-11-20 13:50] VITALS: BP 153/70
[2019-11-20] MEDS: MORPHINE SULFATE 2 MG/ML SYR 1ML IV PRN ×2 (13:50→22:31)
--- NOTE | 2019-11-20 13:50 | NUR ---
PATIENT RECEIVED FROM ER PER STRETCHER. ALERT AND VERBALLY RESPONSIVE. C/O PAIN AND MEDICATED ORDERED. SKIN WARM AND DRY TO TOUCH, RESPIRATION EVEN AND UNLABORED, ABDOMEN SOFT AND NON DISTENDED. TELEMETRY BOX [address] BED IN LOWER POSITION, CALL LIGHT AT REACH. AT BED SIDE, INSTRUCTED TO CALL FOR ASSISTANCE NEEDED
[2019-11-20 14:33] VITALS: BP 153/70
[2019-11-20] MEDS: PREGABALIN 50 MG CAP PO SCH ×2 (15:36→22:15)
--- NOTE | 2019-11-20 15:49 | NUR ---
PATIENT REQUESTED AND RECEIVED A FRESH CUP OF WATER. IN BED TALKING TO . CALL LIGHT AT REACH.
[2019-11-20 16:17] VITALS: BP 165/70
[2019-11-20] MEDS ORDERED: FUROSEMIDE 40 MG TAB PO SCH (17:00)
[2019-11-20] MEDS: DEPAKOTE ER 500MG TAB(ONCE DAILY) PO SCH (17:34)
[2019-11-20] MEDS: OXYBUTYNIN CHLORIDE 5 MG TAB PO SCH (17:34)
[2019-11-20] MEDS: DULOXETINE HCL 30 MG DELAYED RELEASE PO SCH (17:34)
[2019-11-20] MEDS: ENOXAPARIN SOD INJ 40 MG/0.4 ML SYR SC SCH (17:34)
--- NOTE | 2019-11-20 19:30 | History and Physical ---
CONSULTANTS: Oncology. CHIEF COMPLAINT: Left abdominal pain. HISTORY OF PRESENT ILLNESS: This is a 74-year-old female, very poor historian on examination. Reports she was recently at [facility] for rehabilitation, comes into the ED last night with complaints of left upper quadrant abdominal pain. The patient reports this has been ongoing for the last one week. She denies any chest pain, palpitation, nausea, vomiting, or any fever. On arrival here, CT imaging was consistent with multiple intra-abdominal metastasis, concerning for underlying malignancy. The patient was seen and evaluated at bedside on the medical floor. Currently, she in the ER. Currently, she is doing well with no other issues at this time. REVIEW OF SYSTEMS: Pertinent positive: Right upper quadrant abdominal pain. Pertinent negatives: Denies any chest pain, palpitation, nausea, vomiting, diarrhea, dysuria, hematuria, frequency, urgency, lightheadedness, dizziness, headaches, shortness of breath, cough, congestion, fever, or any other complaints. The rest of 14-point review of systems have been reviewed with the patient and are negative. ALLERGIES: NO KNOWN DRUG ALLERGIES. HOME MEDICATIONS: Tylenol No. 3, albuterol, allopurinol, aspirin, buspirone, dicyclomine, divalproex 500 mg p.o. b.i.d., Colace, Cymbalta, Advair, furosemide 40 mg twice daily, levothyroxine, melatonin, oxybutynin, Lyrica, trazodone, and cholecalciferol. PAST MEDICAL HISTORY: History of depression, hypothyroidism, urinary incontinence, depression, neuropathy, and COPD. PAST SURGICAL HISTORY: Reports none. FAMILY HISTORY: Hypertension and diabetes. SOCIAL HISTORY: No drugs. No alcohol. Does not smoke. Good social support. She is . PHYSICAL EXAMINATION: VITAL SIGNS: Temperature is 98.1, pulse 96, respiratory rate is 13, blood pressure 142/77, and pulse ox 96% on room air. GENERAL: Not in acute distress. Alert and oriented x3. Cooperative on examination. HEENT: Head; normocephalic, atraumatic. Eyes; pupils are equal, round, and reactive to light bilaterally. Extraocular movements intact bilaterally. Throat; no evidence of erythema or exudates in the posterior pharynx. Has poor dentition. NECK: Supple. Good range of motion. PULMONARY: Clear to auscultation bilaterally. No wheezing, no rales, no rhonchi, no crackles appreciated. CARDIOVASCULAR: Positive S1 and S2. No murmurs, rubs, or gallops appreciated. ABDOMEN: Soft, nondistended, and nontender to palpation. Bowel sounds present. MUSCULOSKELETAL: Strength is 5/5 throughout. No evidence of any muscle deficits on examination. No weakness appreciated. NEUROLOGIC: Cranial nerves 2 through 12 grossly intact. No evidence of any neurological deficits on exam. SKIN: Intact. Warm to touch. Good cap refill. PSYCHIATRIC: Normal affect and mood. EXTREMITIES: No edema. Good range of motion throughout. LABORATORY DATA: Show white count 10.6, hemoglobin 11.4, hematocrit 36.9, and platelets of 146. Coagulation, D-dimer was elevated at 4.96. Chemistry; sodium 137, potassium 4.1, chloride 104, bicarb 23, anion gap of 14, BUN is 8, creatinine is 0.53, glucose 99, and calcium is 8.1. Total bilirubin is 0.6, AST 43, ALT 25, and alkaline phosphatase 190. Troponins are negative. BNP 46. Total protein is 4.9 and albumin 2.4. Serologies, flu was negative. MICROBIOLOGY: None. IMAGING STUDIES: Chest x-ray shows some segmental atelectasis noted with left lower lung zone. No acute cardiopulmonary process. CT of the chest shows no evidence of any pulmonary embolism. There is evidence of a viral infection versus reactive airway disease. No focal consolidation. There is evidence of suspicion for multifocal hepatic masses, splenomegaly, and pancreatic mass and extensive stranding of the partially visualized left upper quadrant, which may represent inflammatory, infectious, or neoplastic process with either mildly enlarged mesenteric lymph nodes or mesenteric lymph glands. Recommend CT abdomen and pelvis for further management and care. Diffuse wall thickening of the esophagus may represent esophagitis in the appropriate setting. IMPRESSION: 1. Left upper quadrant abdominal pain, likely secondary to underlying malignancy seen on imaging studies. 2. Hepatic masses with pancreatic masses with underlying metastasis, unknown primary. 3. History of chronic obstructive pulmonary disease. 4. Hypothyroidism. 5. History of depression. PLAN: At this time, the underlying abdominal pain is likely secondary to malignancy seen on CT imaging. I will order a dedicated CT abdomen and pelvis with IV contrast as well as a triphasic liver protocol for further management and care. I did consult with Hematology/Oncology to come and talk with the family. I also discussed the plan of care with the patient at bedside. I also discussed this with the as well. We will continue with pain control for now until we are able to get the primary cause of her malignancy. I will go ahead and also get a GI consult, as the patient has evidence of esophagitis on imaging studies. Put her on Protonix as well. Her home medications have been reconciled. I will add pain control. I will also put her on cardiac telemetry. Resume same home medications. Lovenox for DVT prophylaxis. I discussed overall plan of care with the patient, the patient's and they verbalized understanding and agree of plan of care. MD ROVERTO Clraos/BRENDAN /[id number]
[2019-11-20 20:00] VITALS: BP 162/70
[2019-11-20 21:22] VITALS: BP 162/70
[2019-11-20] MEDS: TRAZODONE HCL 50 MG TAB PO SCH (22:15)
[2019-11-21] VITALS (8 sets, daily range): BP systolic 117–142; BP diastolic 58–80
[2019-11-21] MEDS: MORPHINE SULFATE 2 MG/ML SYR 1ML IV PRN ×4 (02:38→22:24)
[2019-11-21] MEDS: HYDROCODONE/APAP 5MG-325MG TAB PO PRN (05:39)
[2019-11-21] MEDS: SODIUM CHLORIDE 0.9% 1000ML 1,000 ML IV SCH ×2 (05:48→15:19)
[2019-11-21] MEDS: LEVOTHYROXINE SODIUM 112 MCG TAB PO SCH (06:00)
[2019-11-21 06:12] LABS: BASOPHILS # (AUTO) 0.1 (0.0-0.1); BASOPHILS % 0.6 % (0.0-1.0); EOSINOPHILS # (AUTO) 0.1 (0.0-0.4); EOSINOPHILS % 1.3 % (0.0-6.0); HEMATOCRIT 37.3 % (34.2-44.1); HEMOGLOBIN 11.5 g/dL (12.0-16.0); LYMPHOCYTES # (AUTO) 1.4 (1.0-3.2); LYMPHOCYTES % 14.4 % (18.0-39.1); MEAN CORPUSCULAR HEMOGLOBIN 26.4 pg (28-32); MEAN CORPUSCULAR HGB CONC 30.8 g/dL (31-35); MEAN CORPUSCULAR VOLUME 85.7 fL (81-99); MONOCYTES # (AUTO) 1.4 (0.2-0.8); MONOCYTES % 14.4 % (4.4-11.3); NEUTROPHILS # (AUTO) 6.5 (2.1-6.9); NEUTROPHILS % 68.4 % (38.7-80.0); PLATELET COUNT 133 x10e3/uL (140-360); RED BLOOD COUNT 4.35 x10e6/uL (3.6-5.1); RED CELL DISTRIBUTION WIDTH 15.9 % (11.7-14.4)
[2019-11-21 06:33] LABS: ANION GAP 13.4 mmol/L (8-16); BLOOD UREA NITROGEN 8 mg/dL (7-26); BUN/CREATININE RATIO 14 (6-25); CARBON DIOXIDE 25 mmol/L (22-29); CHLORIDE 102 mmol/L (98-107); CREATININE, SERUM 0.56 mg/dL (0.57-1.11); EST GLOMERULAR FILTRATION RATE > 60 ML/MIN (60-); GLUCOSE 103 mg/dL (74-118); POTASSIUM 4.4 mmol/L (3.5-5.1); SODIUM 136 mmol/L (136-145)
[2019-11-21] MEDS: SALMETEROL/FLUTICASONE 100/50 INH SCH ×3 (07:00→19:30)
--- NOTE | 2019-11-21 07:00 | NUR ---
Patient resting comfortably. No acute distress noted. Shift report given to oncoming nurse.
--- NOTE | 2019-11-21 07:30 | NUR ---
PT UP IN BED SLEEPING ,NOS/S DISCOMFORT,IV INFUSING TO RT AC PATNET
[2019-11-21] MEDS: DULOXETINE HCL 30 MG DELAYED RELEASE PO SCH ×2 (08:30→17:00)
[2019-11-21] MEDS: OXYBUTYNIN CHLORIDE 5 MG TAB PO SCH ×2 (08:30→17:00)
[2019-11-21] MEDS: PANTOPRAZOLE SOD 40 MG TABEC PO SCH (08:30)
[2019-11-21] MEDS: ALLOPURINOL 100 MG TAB PO SCH (08:30)
[2019-11-21] MEDS: ASPIRIN 81 MG CHEW TAB PO SCH (08:30)
[2019-11-21] MEDS: PREGABALIN 50 MG CAP PO SCH ×3 (08:30→20:40)
[2019-11-21] MEDS: DEPAKOTE ER 500MG TAB(ONCE DAILY) PO SCH ×2 (08:30→17:00)
[2019-11-21] MEDS ORDERED: MIDAZOLAM HCL 2 MG/2 ML VIAL ONE (13:13)
--- NOTE | 2019-11-21 15:30 | NUR ---
PT TRANSPORTED TO OR VIA BED,
[2019-11-21] MEDS ORDERED: MORPHINE SULFATE 2 MG/ML SYR 1ML ONE (16:02)
[2019-11-21] MEDS: ENOXAPARIN SOD INJ 40 MG/0.4 ML SYR SC SCH (17:00)
--- NOTE | 2019-11-21 18:22 | NUR ---
PT RETURNED TO ROOM ,VIA BED AWAKE,DENIES PAIN,IV PATENT.
--- NOTE | 2019-11-21 19:32 | NUR ---
Patient received lying in bed. AAO x 4. Patient had no complaints of pain. Respirations even and non-labored. Fall precautions implemented. IVF infusing at 75 cc/hr. Telemetry box in place. Fall precautions implemented. Patient instructed to call for assistance when needed. Call light within reach.
[2019-11-21] MEDS: GUAIFENESIN/CODEINE 10 ML CUP PO PRN (20:40)
[2019-11-21] MEDS: TRAZODONE HCL 50 MG TAB PO SCH (20:40)
--- NOTE | 2019-11-21 21:00 | NUR ---
Dr. Hart here to see patient.
--- NOTE | 2019-11-21 23:26 | Operative Report ---
DATE OF PROCEDURE: 11/21/2019 SURGEON: Raymond Rojo MD PROCEDURE: EGD note. INDICATION FOR PROCEDURE: Thickened esophagus on CT scan. MEDICATIONS: The patient was done under MAC. Please see anesthesiologist's note. PROCEDURE IN DETAIL: With the patient in left lateral decubitus position, flexible fiberoptic Olympus gastroscope was introduced into the esophagus under direct visualization without any difficulty. There was some patchy erythema noted in the distal esophagus. The scope was then advanced with ease into the stomach. Mucosa overlying the antrum and the body revealed some patchy erythema. There were some prominent folds? varices in the proximal body. The pylorus was intubated with ease and the scope was advanced all the way to the second portion of the duodenum. The scope was then withdrawn slowly and the mucosa overlying the proximal second portion and the duodenal bulb appeared to be within normal limits. The scope was then withdrawn back into the stomach and retroflexed and fundal varices were noted without active bleeding or stigmata of recent hemorrhage. The scope was then straightened out, it was subsequently withdrawn, and the patient tolerated the procedure well. IMPRESSION: 1. Distal esophagitis. 2. Gastric varices fundus without active bleeding or stigmata of recent hemorrhage. 3. Gastritis. PLAN: Continue current therapy. Raymond Rojo MD [facility] [place] /[id number] cc: Hieu Hilton MD
[2019-11-21] MEDS ORDERED: IOPAMIDOL 370 MG/ML 200 ML INFUS..BTL INJ ONE (23:43)
[2019-11-21] MEDS ORDERED: SODIUM CHLORIDE 0.9% 50ML 50 ML ONE (23:43)
[2019-11-22] VITALS (7 sets, daily range): BP systolic 119–153; BP diastolic 59–73
--- NOTE | 2019-11-22 01:20 | Consultation ---
DATE OF CONSULTATION: 11/21/2019 REQUESTING PHYSICIAN: Hieu Hilton MD. CONSULTING PHYSICIAN: Norm Hart Hematology-Oncology Service. REASON FOR CONSULTATION: Evaluation and management of patient with suspected metastatic disease of unknown primary. HISTORY OF PRESENTING ILLNESS: Ms. Casey is a very pleasant 74-year-old female with known history of COPD, hypothyroidism, depression, and neuropathy presented to the Emergency Department due to left upper quadrant abdominal pain. She has been having pain for the last several week and gradually got worsened. She denies any nausea, vomiting, fever, or chills. In the emergency department, she underwent a workup including CT scan of the chest revealing no pulmonary embolism but did show multifocal hepatic masses with splenomegaly as well as a pancreatic tail mass. CT also demonstrated diffuse thickening of the esophagus. The patient was admitted to inpatient floor and Hematology-Oncology has been consulted to assist with the management. Presently, the patient is lying comfortably, not in acute distress breathing normally. She is complaining of left-sided head pain, which is gradually getting worse. She denies any history of cancer or malignancy. She also denies any family history of cancer. PAST MEDICAL HISTORY: 1. COPD. 2. Hypothyroidism. 3. Depression. 4. Chronic pain syndrome. 5. Neuropathy. PAST SURGICAL HISTORY: None. FAMILY HISTORY: Positive for hypertension and diabetes mellitus. SOCIAL HISTORY: The patient denies smoking, alcohol use, or illicit drug use. ALLERGIES: NO KNOWN DRUG ALLERGIES. CURRENT MEDICATIONS: Reviewed as per electronic medical record. REVIEW OF SYSTEMS: A 14-point review of systems negative except as mentioned per history of presenting illness. PHYSICAL EXAMINATION: VITAL SIGNS: Reviewed as per electronic medical record. HEENT: PERRLA. Extraocular movements intact. Head is atraumatic and normocephalic. NECK: Supple. CV: S1 and S2 audible. RESPIRATORY: Decreased bilateral air entry. ABDOMEN: Positive bowel sounds. EXTREMITIES: Negative edema. NEURO: The patient is alert and awake. LABORATORY DATA: Reviewed as per electronic medical record. ASSESSMENT AND PLAN: Ms. Casey is a very pleasant 74-year-old female with no significant past medical history other than hypothyroidism, COPD, and depression, presented to the Emergency Department due to worsening abdominal pain. She underwent workup including a CT scan of the chest revealing no pulmonary embolism but did show multiple hepatic metastases as well as a mass in the concerning for malignancy. The patient was admitted to inpatient floor. Hematology-Oncology has been consulted to assist with the management. I reviewed the record at full length with the patient about her current disease and importance of further workup. Overall picture is suggestive of underlying malignancy. At this point, recommendation would be to get tumor marker profile as well as dedicated CT scan of the abdomen and pelvis. Depending on the resolvable void for the recommendation. The patient was also seen and evaluated by Gastroenterology and presently in the process of getting a workup. Thank you for the consult. I will continue to be available. Please call with questions. MD LAURE Duran/MODL /[id number]
--- NOTE | 2019-11-22 03:15 | NUR ---
Patient's IV on left hand infiltrated. Old IV removed with tip intact. New IV inserted in right wrist 22G. Patient tolerated well.
[2019-11-22] MEDS: HYDROCODONE/APAP 5MG-325MG TAB PO PRN ×4 (04:07→21:16)
[2019-11-22] MEDS: SODIUM CHLORIDE 0.9% 1000ML 1,000 ML IV SCH (04:39)
[2019-11-22] MEDS: LEVOTHYROXINE SODIUM 112 MCG TAB PO SCH (06:00)
--- NOTE | 2019-11-22 07:00 | NUR ---
Walking rounds done. Patient resting comfortably. Bed-side shift report given to oncoming nurse.
[2019-11-22] MEDS: SALMETEROL/FLUTICASONE 100/50 INH SCH (08:08)
[2019-11-22] MEDS: PANTOPRAZOLE SOD 40 MG TABEC PO SCH (08:22)
[2019-11-22] MEDS: PREGABALIN 50 MG CAP PO SCH ×3 (09:00→21:16)
[2019-11-22] MEDS: ASPIRIN 81 MG CHEW TAB PO SCH (09:00)
[2019-11-22] MEDS: DULOXETINE HCL 30 MG DELAYED RELEASE PO SCH ×2 (09:32→17:26)
[2019-11-22] MEDS: ALLOPURINOL 100 MG TAB PO SCH (09:32)
[2019-11-22] MEDS: DEPAKOTE ER 500MG TAB(ONCE DAILY) PO SCH ×2 (09:32→17:26)
[2019-11-22] MEDS: OXYBUTYNIN CHLORIDE 5 MG TAB PO SCH ×2 (09:32→17:26)
[2019-11-22] MEDS: ENOXAPARIN SOD INJ 40 MG/0.4 ML SYR SC SCH (17:00)
[2019-11-22] MEDS ORDERED: SODIUM CHLORIDE 0.9% 250ML 250 ML ONE (19:52)
[2019-11-22] MEDS: ONDANSETRON HCL INJ 2MG/ML 2ML 2 MG/ML VIAL IV PRN (20:02)
[2019-11-22] MEDS: MORPHINE SULFATE 2 MG/ML SYR 1ML IV PRN (20:02)
--- NOTE | 2019-11-22 20:10 | Diagnostic Imaging Report ---
EXAM: CT Abdomen and Pelvis WITH contrast INDICATION: Metastatic disease, staging abdominal CT 06/30/2018 COMPARISON: Abdominal CT 06/30/2018. TECHNIQUE: Abdomen and pelvis were scanned utilizing a multidetector helical scanner from the lung base to the pubic symphysis after administration of IV contrast. Coronal and sagittal reformations were obtained. Routine protocol was performed. Scan was performed when during portal venous phase. IV CONTRAST: 100 mL of Isovue 370 ORAL CONTRAST: Water COMPLICATIONS: None RADIATION DOSE: Total DLP: 707 mGy*cm Estimated effective dose: (DLP x 0.015 x size factor) mSv CTDIvol has been reviewed. It is below the limits set by the Radiation Protocol Committee (RPC). Dose modulation, iterative reconstruction, and/or weight based adjustment of the mA/kV was utilized to reduce the radiation dose to as low as reasonably achievable. FINDINGS: LINES and TUBES: None. LOWER THORAX: Small bilateral pleural effusions and bibasilar atelectasis. A 1 cm lower anterior mediastinal lymph node. HEPATOBILIARY: Numerous hepatic hypodensities, several of which demonstrate peripheral enhancement, largest in the right hepatic lobe measures 3.9 cm, largest in the left hepatic lobe measures 1.5 cm. No biliary ductal dilation. GALLBLADDER: No radio-opaque stones or sludge. No wall thickening. SPLEEN: Mild splenomegaly, measures up to 15 cm, with trace perisplenic fluid. PANCREAS: A 6.3 x 2.9 cm ill-defined heterogeneous solid mass with cystic components in the pancreatic body and tail with surrounding nodular stranding which extends into the left upper abdominal mesentery. ADRENALS: No adrenal nodules KIDNEYS/URETERS: Kidneys enhance symmetrically. No hydronephrosis. No cystic or solid mass lesions. No stones. GI TRACT: No abnormal distention, wall thickening, or evidence of bowel obstruction. Loss of fat plane between the pancreatic mass in the gastric greater curvature. Appendix is normal. PELVIC ORGANS/BLADDER: Hysterectomy. No adnexal masses. LYMPH NODES: Multiple enlarged upper abdominal lymph nodes seen best on series 2 include: * 1 cm left gastric lymph node (image 21). * 1.6 cm portacaval lymph node (image 28). * 0.9 cm deep hepatic lymph node (image 25). * 1 cm right retrocrural lymph node. VESSELS: Splenic vein occlusion. Splenic artery encasement by the pancreatic tail mass. Minimal nonstenotic arterial calcific atherosclerosis. PERITONEUM / RETROPERITONEUM: Trace perisplenic fluid. Nodular stranding in the left upper abdominal mesentery contiguous with the pancreatic tail mass. Trace fluid in the left lower peritoneum. No pneumoperitoneum. BONES: New 2 cm sclerotic focus at the anteroinferior aspect of L3 vertebral body. Stable 7 mm sclerotic focus within the mid T12 vertebral body. Moderate L4 vertebral body superior endplate compression deformity, likely chronic. Chronic left anterior iliac fracture deformity. Degenerative changes in the spine hips and pelvis. SOFT TISSUES: Bilateral gluteal subcutaneous nodules, likely benign granulomas/fat necrosis. IMPRESSION: 1. A 6.3 cm locally invasive pancreatic body/tail mass, encases splenic vessels and occludes the splenic vein, with mild splenomegaly and perisplenic fluid. Upper abdominal and lower mediastinal metastatic adenopathy, left upper abdominal mesenteric carcinomatosis, and numerous hepatic metastasis. An L3 vertebral body sclerotic focus is likely an osseous metastasis. 2. Trace bilateral pleural effusions and bibasilar atelectasis. 3. Moderate L4 vertebral body superior endplate compression deformity, likely chronic. Signed by: Alfredo Chisholm DO on 11/22/2019 8:08 PM
[2019-11-22] MEDS: TRAZODONE HCL 50 MG TAB PO SCH (21:16)
[2019-11-23] VITALS (18 sets, daily range): BP systolic 101–154; BP diastolic 59–84
[2019-11-23] MEDS: HYDROCODONE/APAP 5MG-325MG TAB PO PRN ×4 (03:21→21:30)
[2019-11-23] MEDS: LEVOTHYROXINE SODIUM 112 MCG TAB PO SCH (05:50)
[2019-11-23 06:37] LABS: BASOPHILS # (AUTO) 0.1 (0.0-0.1); BASOPHILS % 0.8 % (0.0-1.0); EOSINOPHILS # (AUTO) 0.1 (0.0-0.4); HEMATOCRIT 34.1 % (34.2-44.1); HEMOGLOBIN 10.6 g/dL (12.0-16.0); LYMPHOCYTES % 15.1 % (18.0-39.1); MEAN CORPUSCULAR HEMOGLOBIN 26.3 pg (28-32); MEAN CORPUSCULAR HGB CONC 31.1 g/dL (31-35); MEAN CORPUSCULAR VOLUME 84.6 fL (81-99); MONOCYTES # (AUTO) 0.9 (0.2-0.8); MONOCYTES % 13.6 % (4.4-11.3); NEUTROPHILS # (AUTO) 4.5 (2.1-6.9); NEUTROPHILS % 66.8 % (38.7-80.0); PLATELET COUNT 122 x10e3/uL (140-360); RED BLOOD COUNT 4.03 x10e6/uL (3.6-5.1)
[2019-11-23 06:52] LABS: PROTHROMBIN TIME 13.8 seconds (11.9-14.5)
[2019-11-23 06:53] LABS: PARTIAL THROMBOPLASTIN TIME 35.1 seconds (23.8-35.5)
--- NOTE | 2019-11-23 06:58 | NUR ---
RECEIVED BEDSIDE SHIFT REPORT FROM OFF GOING NURSE. PATIENT IS IN STABLE CONDITION, NO ACUTE DISTRESS NOTED. PAIN AT A TOLERABLE LEVEL AT THIS TIME. CALL LIGHT WITHIN REACH. BED IN THE LOWEST POSITION.
[2019-11-23 07:00] LABS: BLOOD UREA NITROGEN 9 mg/dL (7-26); BUN/CREATININE RATIO 16 (6-25); CALCIUM 8.5 mg/dL (8.4-10.2); CARBON DIOXIDE 25 mmol/L (22-29); CHLORIDE 103 mmol/L (98-107); CREATININE, SERUM 0.55 mg/dL (0.57-1.11); EST GLOMERULAR FILTRATION RATE > 60 ML/MIN (60-); GLUCOSE 98 mg/dL (74-118); SODIUM 139 mmol/L (136-145)
[2019-11-23] MEDS: SALMETEROL/FLUTICASONE 100/50 INH SCH ×2 (07:50→20:15)
--- NOTE | 2019-11-23 08:00 | NUR ---
PATIENT HAS VISCO MATTRESS. BED PUMP APPLIED TO MATTRESS.
[2019-11-23] MEDS: PANTOPRAZOLE SOD 40 MG TABEC PO SCH (08:40)
[2019-11-23] MEDS: DEPAKOTE ER 500MG TAB(ONCE DAILY) PO SCH ×2 (09:22→16:06)
[2019-11-23] MEDS: PREGABALIN 50 MG CAP PO SCH ×3 (09:22→21:30)
[2019-11-23] MEDS: DULOXETINE HCL 30 MG DELAYED RELEASE PO SCH ×2 (09:22→16:06)
[2019-11-23] MEDS: ALLOPURINOL 100 MG TAB PO SCH (09:22)
[2019-11-23] MEDS: OXYBUTYNIN CHLORIDE 5 MG TAB PO SCH ×2 (09:22→16:06)
[2019-11-23] MEDS: ASPIRIN 81 MG CHEW TAB PO SCH (09:22)
[2019-11-23] MEDS: MORPHINE SULFATE 2 MG/ML SYR 1ML IV PRN ×3 (11:07→23:39)
--- NOTE | 2019-11-23 12:38 | Progress Note ---
DATE: 11/23/2019 Medicine Progress Note SUBJECTIVE: The patient doing well today with no complaints. She is scheduled for CT-guided biopsy of intra-abdominal mass either the liver or the pancreas depending on the radiologist, where he is able to access in tissue. Her pain is still there. We will increase the pain medications accordingly. PHYSICAL EXAMINATION: VITAL SIGNS: Temperature is 97.4, pulse 82, respiratory rate is 20, blood pressure 119/69, and pulse ox 92% on room air. GENERAL: Not in acute distress. Alert and oriented x3. Cooperative on examination. HEENT: Head; normocephalic, atraumatic. Eyes; pupils are equal, round, and reactive to light bilaterally. Extraocular movements intact bilaterally. Throat; no evidence of erythema or exudates in the posterior pharynx. Has poor dentition. NECK: Supple. Good range of motion. PULMONARY: Clear to auscultation bilaterally. No wheezing, no rales, no rhonchi, no crackles appreciated. CARDIOVASCULAR: Positive S1 and S2. No murmurs, rubs, or gallops appreciated. ABDOMEN: Soft, nondistended, and nontender to palpation. Bowel sounds present. MUSCULOSKELETAL: Strength is 5/5 throughout. No evidence of any muscle deficits on examination. No weakness appreciated. NEUROLOGIC: Cranial nerves 2 through 12 grossly intact. No evidence of any neurological deficits on exam. SKIN: Intact. Warm to touch. Good cap refill. PSYCHIATRIC: Normal affect and mood. EXTREMITIES: No edema. Good range of motion throughout. LABORATORY FINDINGS: Show white count is 6.6, hemoglobin 10.6, hematocrit is 34, and platelets of 122. Chemistry; sodium 139, potassium 4, chloride 103, bicarb 25, anion gap of 15, BUN is 9, creatinine is 0.55, and calcium 8.5. Alpha fetoprotein, CEA, CA 19-9, and CA-125 pending. Actually, CA 19-9 was found to be elevated at 6152. Influenza was negative. MICROBIOLOGY: None. IMAGING STUDIES: CT abdomen and pelvis with IV contrast shows 6.3 cm invasively pancreatic body toe mass encasing splenic vessels included the splenic vein with mild splenomegaly and perisplenic fluid with upper abdominal and lower mediastinal metastatic adenopathy with left upper abdominal mesenteric carcinomatosis with numerous hepatic metastasis. There is a moderate L4 vertebral body superior endplate compression deformity, likely chronic in nature. IMPRESSION: 1. Pancreatic mass/liver masses with underlying metastatic disease with malignancy. 2. Abdominal pain, likely secondary to intra-abdominal masses from malignancy of unknown primary source. 3. History of chronic obstructive pulmonary disease. 4. Hypothyroidism. 5. Depression. PLAN: At this time, CT abdomen and pelvis with IV contrast noted. CA 19-9 is elevated. She is scheduled for CT-guided biopsy of intra-abdominal masses depending where the radiologist feels comfortable to grab tissue, which we will defer to Interventional Radiology. Continue with pain control. If her pain is not controlled, I will go ahead and adjust her pain medications accordingly. I discussed the plan of care with the nursing staff. The patient at bedside as well. MD ROVERTO Claros/MODL /[id number]
--- NOTE | 2019-11-23 13:51 | NUR ---
PATIENT OFF UNIT FOR BIOPSY.
[2019-11-23] MEDS ORDERED: MIDAZOLAM HCL 2 MG/2 ML VIAL ONE (14:22)
[2019-11-23] MEDS ORDERED: FENTANYL CITRATE/PF 100MCG/2 ML INJ ONE (14:22)
--- NOTE | 2019-11-23 15:10 | NUR ---
HEMATOLOGY/ONCOLOGY PROGRESS NOTE: REQUESTING PHYSICIAN: Hieu Hilton MD. CONSULTING PHYSICIAN: Norm [facility] Hematology-Oncology Service. REASON FOR CONSULTATION: Evaluation and management of patient with suspected metastatic disease of unknown primary. HISTORY OF PRESENT ILLNESS: Patient is out of the room for biopsy at this time. REVIEW OF SYSTEMS: A 14-point review of systems unable to obtain as patient is out of the room. PHYSICAL EXAMINATION: VITAL SIGNS: Reviewed as per electronic medical record. Unable to perform full physical exam as patient is out of the room. LABORATORY DATA: Reviewed as per electronic medical record. CT abd/pelvis with contrast: IMPRESSION: 1. A 6.3 cm locally invasive pancreatic body/tail mass, encases splenic vessels and occludes the splenic vein, with mild splenomegaly and perisplenic fluid. Upper abdominal and lower mediastinal metastatic adenopathy, left upper abdominal mesenteric carcinomatosis, and numerous hepatic metastasis. An L3 vertebral body sclerotic focus is likely an osseous metastasis. 2. Trace bilateral pleural effusions and bibasilar atelectasis. 3. Moderate L4 vertebral body superior endplate compression deformity, likely chronic. ASSESSMENT AND PLAN: Ms. Casey is a very pleasant 74-year-old female with no significant past medical history other than hypothyroidism, COPD, and depression, presented to the Emergency Department due to worsening abdominal pain. She underwent workup including a CT scan of the chest revealing no pulmonary embolism but did show multiple hepatic metastases as well as a mass in the concerning for malignancy. The patient was admitted to inpatient floor. Hematology-Oncology has been consulted to assist with the management. 1. Pancreatic mass: Associated with metastatic adenopathy with L3 vertebral body sclerotic focus concerning for osseous mets. CA 19-9 markedly elevated 6152. Other tumor markers pending. Patient currently undergoing biopsy with IR on board. Follow up pathology results. Patient will likely need PETCT scan which can be done in outpatient setting. GI on board. 2. Anemia: Mild, trending down. Will monitor closely. 3. DVT proph: Lovenox 40mg sq daily. Above plan discussed with Dr. Hart. Thank you for the consult. I will continue to be available. Please call with questions.
--- NOTE | 2019-11-23 15:20 | NUR ---
PATIENT BACK TO UNIT AT THIS TIME. SHE IS IN STABLE CONDITION.
[2019-11-23] MEDS: ENOXAPARIN SOD INJ 40 MG/0.4 ML SYR SC SCH (16:06)
--- NOTE | 2019-11-23 16:28 | Diagnostic Imaging Report ---
PROCEDURE: Ultrasound-guided biopsy Procedural Personnel Attending physician(s): Guilherme Day MD Fellow physician(s): None Resident physician(s): None Advanced practice provider(s): None Pre-procedure diagnosis: Liver masses Post-procedure diagnosis: Same Indication: Histopathologic diagnosis Previous biopsy of same target (QCDR): No Additional clinical history: None Complications: No immediate complications. IMPRESSION: Ultrasound-guided biopsy of right liver lesion. Plan: Specimen(s) sent for evaluation. PROCEDURE SUMMARY: - Percutaneous US-guided coaxial core needle biopsy - Additional procedure(s): None PROCEDURE DETAILS: Pre-procedure Reference imaging for biopsy target: Abdomen/pelvis CT 11/21/2019 Consent: Informed consent for the procedure including risks, benefits and alternatives was obtained and time-out was performed prior to the procedure. Preparation: The site was prepared and draped using maximal sterile barrier technique including cutaneous antisepsis. Anesthesia/sedation Level of anesthesia/sedation: Moderate sedation (conscious sedation) Anesthesia/sedation administered by: Independent trained observer under attending supervision with continuous monitoring of the patient?s level of consciousness and physiologic status Total intra-service sedation time (minutes): 30 Imaging prior to biopsy The patient was positioned supine. Initial ultrasound was performed. Biopsy target: - Maximal diameter (cm): 4 - Location: Right liver Other findings: None Biopsy Local anesthesia was administered. Under US guidance, the biopsy needle was advanced to the target and biopsy was performed. Coaxial needle: 17 gauge Core needle biopsy device: [employer] Core needle size: 18 gauge Number of core specimens: 3 On-site biopsy touch preparation: Yes Additional sampling recommendations: None Preliminary assessment of sample adequacy: Adequate Needle removal The biopsy needle was removed and a sterile dressing was applied. Tract embolization: Gelfoam slurry Imaging following biopsy Immediate post-biopsy ultrasound was performed. Post-biopsy imaging findings: No hematoma Additional Details Additional description of procedure: None Equipment details: None Specimens removed: Biopsy samples as detailed above Estimated blood loss (mL): Less than 10 Standardized report: [id number] Attestation Signer name: Guilherme Day MD I attest that I was present for the entire procedure. I reviewed the stored images and agree with the report as written. Signed by: Guilherme Day MD on 11/23/2019 4:26 PM
--- NOTE | 2019-11-23 19:34 | NUR ---
Bedside shift report given to oncoming nurse. Patient is resting in bed, no acute distress noted. Pain at a tolerable level at this time. Call light within reach. Bed in the lowest position.
[2019-11-23] MEDS: ONDANSETRON HCL INJ 2MG/ML 2ML 2 MG/ML VIAL IV PRN (19:35)
[2019-11-23] MEDS: TRAZODONE HCL 50 MG TAB PO SCH (21:30)
[2019-11-24] VITALS (9 sets, daily range): BP systolic 117–137; BP diastolic 59–70
[2019-11-24] MEDS: GUAIFENESIN/CODEINE 10 ML CUP PO PRN (01:29)
[2019-11-24] MEDS: LEVOTHYROXINE SODIUM 112 MCG TAB PO SCH (06:15)
--- NOTE | 2019-11-24 06:56 | NUR ---
BEDSIDE SHIFT REPORT RECEIVED FROM OFF GOING NURSE. PATIENT IS RESTING IN BED. NO ACUTE DISTRESS NOTED AT THIS TIME. CALL LIGHT WITHIN REACH. BED IN THE LOWEST POSITION.
--- NOTE | 2019-11-24 07:00 | NUR ---
Bedside report and walking rounds completed with oncoming nurse. Patient in bed resting. Call light within reach. No issues or concerns noted.
[2019-11-24] MEDS: PREGABALIN 50 MG CAP PO SCH ×3 (08:25→22:00)
[2019-11-24] MEDS: DEPAKOTE ER 500MG TAB(ONCE DAILY) PO SCH ×2 (08:25→15:58)
[2019-11-24] MEDS: OXYBUTYNIN CHLORIDE 5 MG TAB PO SCH ×2 (08:25→15:58)
[2019-11-24] MEDS: DULOXETINE HCL 30 MG DELAYED RELEASE PO SCH ×2 (08:25→15:58)
[2019-11-24] MEDS: PANTOPRAZOLE SOD 40 MG TABEC PO SCH (08:25)
[2019-11-24] MEDS: ALLOPURINOL 100 MG TAB PO SCH (08:25)
[2019-11-24] MEDS: ASPIRIN 81 MG CHEW TAB PO SCH (08:25)
[2019-11-24] MEDS: SALMETEROL/FLUTICASONE 100/50 INH SCH ×2 (09:20→18:55)
[2019-11-24] MEDS: HYDROCODONE/APAP 5MG-325MG TAB PO PRN ×3 (09:54→22:20)
[2019-11-24] MEDS: ENOXAPARIN SOD INJ 40 MG/0.4 ML SYR SC SCH (15:58)
[2019-11-24 19:06] LABS: FERRITIN 358.73 ng/mL (4.63-204.00)
--- NOTE | 2019-11-24 19:10 | NUR ---
Bedside report and walking rounds completed with off going nurse. Patient in bed. No issues or concerns noted. Call light within reach. Bed alarm on and active. Will continue to monitor.
--- NOTE | 2019-11-24 19:21 | NUR ---
BEDSIDE SHIFT REPORT GIVEN TO ONCOMING NURSE, PATIENT IS IN STABLE CONDITION. NO ACUTE DISTRESS NOTED AT THIS TIME. CALL LIGHT WITHIN REACH. BED IN THE LOWEST POSITION.
[2019-11-24 19:22] LABS: FOLATE 10.4 ng/mL (7.0-15.4)
--- NOTE | 2019-11-24 19:40 | NUR ---
1919 Called to room by ALYCIA, patient on floor in bathroom on bilateral knees holding on to rail. DITCHING MACHINE ENGINEER stated patient assisted to bathroom with standby assistance and instructed patient to call once completed. Patient stated that " I was attempting to wipe myself and leaned on walker and slid to floor on my knees." Patient wearing yellow socks, stated " I am not used to that kind of walker." Denies any pain or hitting head. Patient assessed and assisted x2 people back on the toilet. Continues to deny pain, able to move both legs and knees without pain or difficult, no broken skin, bruising or redness noted. Assisted back to bed with standby assistance with walker. Bed alarm on and active. Call light within reach. [address] Hilton notified of incident, new orders received. 1934 In room with patient updated on POC and test ordered by , stated that will be calling to notify regarding incident. Patient Stated " I already talked to him and I will call him back to tell him about test. Patient called [facility] from room, nurse spoke with . Education reinforced to call for assistance, call light within with, Bed alarm on and active, verbalized understanding. Will continue to monitor closely.
--- NOTE | 2019-11-24 19:50 | NUR ---
Patient off unit with radiology scheduler for xray of bilateral knees and CT Brain.
--- NOTE | 2019-11-24 20:28 | NUR ---
Patient back on unit from test, in bed with alarm active, Instructed to call for assistance. Call light within reach. Will continue to monitor closely.
--- NOTE | 2019-11-24 20:45 | Diagnostic Imaging Report ---
EXAMINATION: Head CT without contrast. HISTORY:Status post fall. COMPARISON:CT brain from 06/29/2018.. TECHNIQUE: Multidetector axial images were obtained from the foramen magnum to the vertex without contrast. The images were reconstructed using brain and bone algorithms. Thin section brain images were reformatted into coronal and sagittal planes. Dose modulation, iterative reconstruction, and/or weight based adjustment of the mA/kV was utilized to reduce the radiation dose to as low as reasonably achievable. Intravenous contrast: None IMAGE QUALITY: Acceptable. FINDINGS: Skull/scalp: No lytic or blastic. lesions. No surgical changes. Parenchyma: Nonspecific bilateral frontoparietal patchy white matter hypodensity are likely related to small vessel ischemic changes. No acute hemorrhage, mass or acute major vascular territorial infarct. Arteries: No density suggestive of thrombosis. Mild atherosclerotic calcification in bilateral carotid siphon. Dural sinuses: No abnormal density suggestive of thrombosis. Ventricles: Moderate compensated dilatation due to volume loss. No acute hydrocephalus. Extra-axial spaces: No abnormal density. Brain volume: Moderate generalized cerebral volume loss. Craniocervical junction: No mass, Chiari malformation, or basilar invagination. Sella: No mass. Paranasal/mastoid sinuses: Imaged portions unremarkable. IMPRESSION: No acute intracranial abnormality. No change since CT brain from 06/29/2018. Chronic findings: 1. Moderate generalized cerebral volume loss. 2. Moderate supratentorial white matter microvascular ischemic changes. Signed by: Dr. Daxa Queen M.D. on 11/24/2019 8:43 PM
--- NOTE | 2019-11-24 21:23 | Diagnostic Imaging Report ---
EXAM: KNEE THREE VIEWS BILATERAL DATE: 11/24/2019 7:32 PM INDICATION: ^[id number] ^1955 ^S/P FALL COMPARISON: None FINDINGS: Left knee: 3 views of left knee show no displaced fracture or dislocation. Joint spaces are maintained. There are mild tricompartmental degenerative changes noted. Soft tissues show edema in the suprapatellar area. The Right knee: 3 views of the right knee show no displaced fracture or dislocation. There is mild narrowing of the lateral knee joint space. There are moderately advanced tricompartmental degenerative changes. Soft tissues unremarkable. IMPRESSION: 1. Degenerative changes of the knees more advanced on the right. 2. Likely soft tissue swelling above the left patella. Signed by: Dr. Garrick Casiano M.D. on 11/24/2019 9:21 PM
[2019-11-24] MEDS: TRAZODONE HCL 50 MG TAB PO SCH (22:00)
[2019-11-25 00:57] VITALS: BP 121/56
[2019-11-25] MEDS: HYDROCODONE/APAP 5MG-325MG TAB PO PRN ×2 (04:20→10:40)
--- NOTE | 2019-11-25 04:20 | NUR ---
Dr Rojo on unit, Patient okay to discharge from GI standpoint, Follow up in office in 2 wks.
[2019-11-25 05:28] VITALS: BP 116/60
[2019-11-25] MEDS: LEVOTHYROXINE SODIUM 112 MCG TAB PO SCH (06:00)
--- NOTE | 2019-11-25 07:15 | NUR ---
Bedside report and walking rounds completed with oncoming nurse. Patient in bed, no issues or concerns note. Call light within reach and instructed to use call light for assistance.
[2019-11-25 08:00] VITALS: BP 139/64
[2019-11-25] MEDS: ALLOPURINOL 100 MG TAB PO SCH (08:43)
[2019-11-25] MEDS: PANTOPRAZOLE SOD 40 MG TABEC PO SCH (08:43)
[2019-11-25] MEDS: DULOXETINE HCL 30 MG DELAYED RELEASE PO SCH (08:43)
[2019-11-25] MEDS: PREGABALIN 50 MG CAP PO SCH (08:43)
[2019-11-25] MEDS: ASPIRIN 81 MG CHEW TAB PO SCH (08:43)
[2019-11-25] MEDS: DEPAKOTE ER 500MG TAB(ONCE DAILY) PO SCH (08:43)
[2019-11-25] MEDS: OXYBUTYNIN CHLORIDE 5 MG TAB PO SCH (08:43)
[2019-11-25 09:02] VITALS: BP 139/64
[2019-11-25 12:00] VITALS: BP 143/66
--- NOTE | 2019-11-25 13:13 | NUR ---
PER CASE MANAGEMENT, PATIENT AND REFUSED HOME HEALTH.
[2019-11-25] MEDS ORDERED: ONDANSETRON HCL 4 MG ORAL DISINTEGRATING TAB PO PRN (14:00)
--- NOTE | 2019-11-25 14:02 | NUR ---
ORDER RECEIVED TO ARRANGE HOME HEALTH. ALEX MET W THE PT AND SPOUSE AT THE BEDSIDE. PT STATES SHE HAD BEEN IN A FACILITY AND WENT HOME 4 DAYS AND WAS ADMITTED HERE FOR HER MASSES. DISCUSSED HOME HEALTH AN OPTION. THE STATES HE ALREADY HAS [facility] [employer] Leslie PARKER COMING OUT NEXT WEEK TO ARRANGE ANY HOME NEEDS. STATES THEY WANT TO TAKE A BREAK FROM EVERYTHING FOR A FEW DAYS. STATES THEY HAVE EVERTHING THEY NEED FOR NOW. STATES THEY ALSO HAVE PROVIDER SERVICES BEING SUPPLIED BY [employer]. CM NOTIFIED AVANI ADAM / BEDSIDE NURSE. IMM LETTER EXPLAINED TO PT. PT VERBALIZED UNDERSTANDING. IMM LETTER SIGNED. COPY TO PT AND COPY TO CHART.
--- NOTE | 2019-11-25 14:18 | NUR ---
RECEIVED DC ORDER FROM . PATIENT IS IN STABLE CONDITION. IV LINE TO RIGHT FOREARM DISCONTINUED WITH TIP INTACT, PRESSURE APPLIED TO SITE, NO BLEEDING NOTED. DISCHARGE TEACHING PROVIDED TO PATIENT AND , THEY BOTH VERBALIZED UNDERSTANDING. DISCHARGE FOLDER WITH PAPERWORK AND PRESCRIPTIONS ON HAND. PATIENT ACCOMPANIED TO PRIVATE AUTO VIA WHEELCHAIR BY STAFF.
--- NOTE | 2019-11-26 02:34 | Discharge Summary ---
FINAL DISCHARGE DIAGNOSES: 1. Pancreatic mass with liver metastasis, likely underlying malignancy of unknown etiology at this time. 2. Abdominal pain secondary to intraabdominal masses secondary to malignancy of unknown primary at this time. 3. History of chronic obstructive pulmonary disease. 4. History of depression. 5. Hypothyroidism. 6. History of seizures. 7. Esophagitis. CONSULTANTS: 1. Hematology/Oncology. 2. GI. VITAL SIGNS: Temperature is 98, pulse 99, respiratory rate is 20, blood pressure 143/66, and pulse ox 94% on room air. LABORATORY FINDINGS: Show white count 6.6, hemoglobin 10.6, hematocrit is 34, and platelets of 122. Coagulation; PT was 13.8, INR 1, and PTT 35. D-dimer 4.96. Chemistry; sodium 139, potassium 4, chloride 103, bicarb 25, anion gap of 15, BUN is 9, creatinine is 0.55, glucose is 98, calcium is 8.5. Iron saturation is 6%. Ferritin is 358. Total bilirubin is 0.6. AST was 43, ALT was 25, CK was 21, albumin was 2.4. Troponins were all negative x4. CEA is 164. CA 19-9 elevated at 6152. CA-125 is 1497. Vitamin B12 is 1943, folate is 10.4. Serology flu was negative. MICROBIOLOGY: None. IMAGING STUDIES: Chest x-ray shows no acute cardiopulmonary process identified. CTA of the chest shows no evidence of pulmonary embolism. It shows evidence of reactive airway disease. There is consistency of multifocal hepatic masses, splenomegaly, and pancreatic tail mass, extensive stranding needing further evaluation and management. Diffuse wall thickening of the esophagus may represent esophagitis. CT abdomen and pelvis shows similar finding, 6.3 cm locally invasive pancreatic body tail mass encasing the splenic vessels and occluded splenic vein and mild splenomegaly with perisplenic fluid. There is upper abdominal and lower mediastinal metastatic adenopathy, left upper abdominal mesenteric carcinomatosis and numerous hepatic metastasis. There is an L3 vertebral body sclerotic focus, likely an osseous metastasis. Trace bilateral pleural effusions and bibasilar atelectasis. Moderate L4 vertebral body and superior endplate compression deformity likely chronic in nature. Status post ultrasound-guided liver biopsy performed and bilateral knee x-ray shows degenerative changes of the knees, more advanced on the right and there is some likely soft tissue swelling above the left patella and then CT of the brain shows no acute intracranial abnormality. Moderate generalized cerebral volume loss. Moderate to severe white matter microvascular ischemic changes, but no acute findings were seen. HOSPITAL COURSE: This is a 74-year-old female, very pleasant patient, has a history of seizures, history of hypothyroidism, who came into the ED with complaints of underlying abdominal pain ongoing for the last several days at home. The patient reports more epigastric abdominal pain and left upper quadrant abdominal pain. CT imaging was consistent with numerous intraabdominal masses including the pancreas and liver and needing further evaluation and management. Imaging also consistent with esophagitis. The patient underwent status post EGD by GI. She was found to have some underlying esophagitis. The patient was discharged on oral Protonix. Biopsies were performed and needs follow up as an outpatient with a GI specialist for final pathology results. EGD report shows distal esophagitis with gastric varices fundus without active bleeding or stigmata of recent hemorrhage and also evidence of gastritis. The patient was then cleared for discharge by GI standpoint. Hematology/Oncology was consulted for the underlying intraabdominal masses on the pancreas and the liver. The patient underwent status post ultrasound-guided of the liver masses with pathology still pending even upon discharge. Results will possibly between 5-7 days, which I have discussed this with the patient's family and the patient at bedside. The patient's abdominal pain improved with oral pain medications with [place]. The patient was alert, awake, and oriented prior to being discharged to home. She was stable. The patient was found to have elevated CA 19-9 as well as CA-125 and CEA levels needing further evaluation and management as an outpatient with a pattern repair person/oncologist. I spoke with both GI and Hematology/Oncology and they were both cleared the patient for discharge home with close followup with the oncologist and GI for pathology results. On discharge, the patient was doing well back to normal baseline with no other complaints. On the day of discharge, vital signs were stable, labs reviewed and stable. The patient was seen, evaluated, examined thoroughly on the day of discharge. No other complaints. The patient verbalized understanding and agreed to plan of care to follow up accordingly as an outpatient with the primary care physician in 1 week and GI specialist in 1 to 2 weeks for final pathology results and Hematology/Oncology scheduled for November 30, 2019, to get final pathology results on the ultrasound-guided liver biopsy. The patient and family verbalized understanding and agreed to plan of care as described above. MEDICATIONS: See med reconciliation form. DISPOSITION: Home. CONDITION: Stable. DIET: Heart healthy. In the event of any worsening symptoms, the patient was advised to come back to the ED for further evaluation. Discharge summary took greater than 35 minutes. Once again, I had an extensive conversation with the patient and the at bedside about following very closely with the oncologist, Dr. Hart and the GI specialist within the next 1 to 2 weeks for GI and next 11/30/2019, to get the final pathology results. They verbalized understanding and agrees to plan of care. MD ROVERTO Claros/BRENDAN /[id number]
== END 2019-11-25 14:27 | disposition home or self-care (01) | DRG 436 ==
LOC: ER 13:26 → ERHOLD 20:50 → MED/SURG3 11-20 13:36
PROVIDERS: ADMIT Internal Medicine; ATTEND Internal Medicine
PROC: 0DJ08ZZ Inspection of Upper Intestinal Tract, Via Natural or Artificial Opening Endoscopic (ICD-10-PCS; principal; 2019-11-21 17:23)
PROC: 0FB03ZX Excision of Liver, Percutaneous Approach, Diagnostic (ICD-10-PCS; 2019-11-22)
DX: C78.7 Secondary malignant neoplasm of liver and intrahepatic bile duct (principal); Z68.41 Body mass index [BMI] 40.0-44.9, adult; F32.2 Major depressive disorder, single episode, severe without psychotic features; C78.89 Secondary malignant neoplasm of other digestive organs; C80.1 Malignant (primary) neoplasm, unspecified; E03.9 Hypothyroidism, unspecified; K29.70 Gastritis, unspecified, without bleeding; R07.89 Other chest pain; G62.9 Polyneuropathy, unspecified; J44.9 Chronic obstructive pulmonary disease, unspecified; Z83.3 Family history of diabetes mellitus; Z82.49 Family history of ischemic heart disease and other diseases of the circulatory system; F32.9 Major depressive disorder, single episode, unspecified; K20.9 Esophagitis, unspecified; I86.4 Gastric varices; D64.9 Anemia, unspecified; E66.01 Morbid (severe) obesity due to excess calories
CPT/HCPCS: 36415; 43235; 47000; 70450; 71046; 71260; 74177; 74470; 80048; 80053; 82105; 82378; 82550; 82553; 82607; 82728; 82746; 83540; 83880; 84466; 84484; 85025; 85045; 85379; 85610; 85730; 86301; 86304; 87400; 88307; 88342; 93005; 94664; 99152; 99153; 99284; J1650; J2250; J2270; J2405; J3010; J7030; J7050; Q9967

== ENCOUNTER 2019-12-30 12:43 | Inpatient (IN) | payer MEDICARE, OTHER ==
[~2019-12-30] VITALS: Ht 160 cm; Wt 108.6 kg
[~2019-12-30 12:43] MED LIST changes: +ADVAIR 100-501 EACH PO; +ALBUTEROL0.63 MG/3 NEB; +ALLOPURINOL100 MG PO; +COLACE100 MG PO; +DICYCLOMINE HCL10 MG PO; +LYRICA50 MG PO; +MELATONIN3 MG PO; +TRAZODONE HCL50 MG PO; +TYLENOL WITH C1 EACH PO; +VITAMIN D35000 UNI2
--- NOTE | 2019-12-30 13:40 | NUR ---
UNABLE TO GAVE PIV ACCESS, AWARE AND TRYING TO OBTAIN LINE AND LABS.
[2019-12-30] MEDS ORDERED: SODIUM CHLORIDE 0.9% 1000ML 3,000 ML ONE (14:15)
[2019-12-30] MEDS ORDERED: SODIUM CHLORIDE 0.9% 1000ML 2,000 ML IV ONE (14:15)
[2019-12-30 14:29] LABS: CLARITY,URINE SL CLOUDY (CLEAR); COLOR,URINE YELLOW (YELLOW); KETONES,URINE TRACE (NEGATIVE); LEUKOCYTE ESTERASE ,URINE NEGATIVE (NEGATIVE); NITRITE,URINE NEGATIVE (NEGATIVE); PROTEIN,URINE DIPSTICK NEGATIVE (NEGATIVE)
[2019-12-30 14:30] LABS: BILIRUBIN,URINE 2+ (NEGATIVE)
[2019-12-30 14:35] LABS: ALANINE AMINOTRANSFERASE 56 IU/L (0-55); ALBUMIN 2.7 g/dL (3.5-5.0); ALBUMIN/GLOBULIN RATIO 0.5 (0.8-2.0); ALKALINE PHOSPHATASE 2309 IU/L (40-150); ANION GAP 22.3 mmol/L (8-16); BLOOD UREA NITROGEN 22 mg/dL (7-26); BUN/CREATININE RATIO 31 (6-25); CALCIUM 9.8 mg/dL (8.4-10.2); CARBON DIOXIDE 26 mmol/L (22-29); CHLORIDE 87 mmol/L (98-107); CREATININE, SERUM 0.72 mg/dL (0.57-1.11); EST GLOMERULAR FILTRATION RATE > 60 ML/MIN (60-); GLUCOSE 108 mg/dL (74-118); POTASSIUM 4.3 mmol/L (3.5-5.1); SODIUM 131 mmol/L (136-145)
[2019-12-30 14:36] LABS: LIPASE 6 U/L (8-78); MAGNESIUM 2.1 MG/DL (1.3-2.1)
[2019-12-30 14:45] LABS: BACTERIA,URINE MODERATE /HPF; EPITHELIAL CELLS,URINE FEW /LPF; RBC,URINE 0-5 /HPF (0-5)
--- NOTE | 2019-12-30 14:47 | Diagnostic Imaging Report ---
EXAMINATION: CHEST SINGLE (PORTABLE) INDICATION: WEAK. COMPARISON: None FINDINGS: AP view TUBES and LINES: None. LUNGS: Lungs are not well inflated. There are bibasilar opacities likely atelectasis. PLEURA: No pleural effusion or pneumothorax. HEART AND MEDIASTINUM: The cardiomediastinal silhouette is unremarkable. BONES AND SOFT TISSUES: No acute osseous lesion. Soft tissues are unremarkable. UPPER ABDOMEN: No free air under the diaphragm. IMPRESSION: Bibasilar opacities likely atelectasis. Signed by: David Young MD on 12/30/2019 2:44 PM
[2019-12-30 14:51] LABS: BASOPHILS % 0.1 % (0.0-1.0); EOSINOPHILS # (AUTO) 0.1 (0.0-0.4); EOSINOPHILS % 0.4 % (0.0-6.0); HEMOGLOBIN 14.8 g/dL (12.0-16.0); LYMPHOCYTES # (AUTO) 1.4 (1.0-3.2); MEAN CORPUSCULAR HGB CONC 32.2 g/dL (31-35); MEAN CORPUSCULAR VOLUME 80.8 fL (81-99); MONOCYTES # (AUTO) 1.9 (0.2-0.8); MONOCYTES % 8.3 % (4.4-11.3); NEUTROPHILS # (AUTO) 18.3 (2.1-6.9); NEUTROPHILS % 81.6 % (38.7-80.0); PLATELET COUNT 269 x10e3/uL (140-360); RED BLOOD COUNT 5.69 x10e6/uL (3.6-5.1); RED CELL DISTRIBUTION WIDTH 24.1 % (11.7-14.4)
[2019-12-30] MEDS ORDERED: MORPHINE SULFATE INJ 4 MG/ML INJ 1ML ONE (15:15)
--- NOTE | 2019-12-30 15:18 | NUR ---
2nd liter ns running now wo per md order. flex seal rectal tube placed per md order.
[2019-12-30] MEDS ORDERED: FAMOTIDINE 20 MG/2 ML VIAL IV STA (16:08)
[2019-12-30] MEDS ORDERED: DICYCLOMINE HCL 20 MG/2 ML VIAL IM ONE (16:15)
[2019-12-30] MEDS ORDERED: MORPHINE SULFATE 5 MG/ML VIAL IV ONE (16:15)
[2019-12-30] MEDS ORDERED: SODIUM CHLORIDE 0.9% 1000ML 1,000 ML IV ONE (16:15)
--- NOTE | 2019-12-30 16:27 | NUR ---
green sheet on chart per protocol
[2019-12-30] MEDS ORDERED: MORPHINE SULFATE INJ 4 MG/ML INJ 1ML IV ONE (16:30)
[2019-12-30] MEDS ORDERED: PIPER-TAZ 3.375 GM 50 ML IV ONE (16:45)
[2019-12-30] MEDS ORDERED: SODIUM CHLORIDE 0.9% 1000ML 1,000 ML IV SCH (17:00)
--- NOTE | 2019-12-30 17:05 | Diagnostic Imaging Report ---
CT of the abdomen and pelvis, with contrast, 12/30/2019. History: Pancreatic cancer, abdominal pain. Comparison: 11/21/2019. Technique: Multidetector CT scanning of the abdomen and pelvis was performed from the level of the lung bases to the inferior pubic rami after intravenous administration of contrast. Coronal and sagittal multiplanar reformations were obtained. RADIATION DOSE: Total DLP: 733 mGy*cm Dose modulation, iterative reconstruction, and/or weight based adjustment of the mA/kV was utilized to reduce the radiation dose to as low as reasonably achievable. Discussion: LUNG BASES: There is patchy right lower lobe consolidation. ABDOMEN: Liver is enlarged measuring over 20 cm in length. Innumerable peripherally enhancing hypodense masses are present throughout both lobes of the liver, increased in size and number compared to prior exam, the largest in the right lobe anteriorly measuring 6.6 x 6.0 cm. A 6.3 x 3.0 cm heterogeneous hypodense mass in the distal body/tail of the pancreas with local invasion is again noted. Adjacent adenopathy and mesenteric fat stranding are again noted. New small volume perihepatic and perisplenic ascites is present. The gallbladder, biliary tree, spleen, adrenal glands, and kidneys are normal. The hepatic vein, portal vein, and splenic vein are patent. The abdominal aorta is within normal limits for size. Evaluation of bowel is limited without oral contrast. There is no bowel dilatation. The appendix is visualized and is normal. Stool is noted throughout the colon. Mild anasarca is noted. PELVIS: A Tomas catheter is present within a decompressed bladder. Uterus and adnexa are absent. A small amount of ascites is noted. BONES AND SOFT TISSUES: Sclerotic lesion within the L3 vertebral body is unchanged. L4 lumbar vertebral body compression deformity is unchanged. IMPRESSION: 1. Interval progression of diffuse hepatic metastatic disease. Increased ascites and anasarca. 2. Unchanged appearance of locally invasive pancreatic mass. Signed by: Dean Styles on 12/30/2019 5:02 PM
[2019-12-30] MEDS ORDERED: SODIUM CHLORIDE 0.9% 50ML 50 ML ONE (17:19)
[2019-12-30] MEDS ORDERED: IOPAMIDOL 370 MG/ML 200 ML INFUS..BTL INJ ONE (17:19)
[2019-12-30] MEDS ORDERED: SODIUM CHLORIDE FLUSH 10 ML SYR INJ PRN (17:30)
[2019-12-30] MEDS ORDERED: ONDANSETRON HCL INJ 2MG/ML 2ML 2 MG/ML VIAL IV PRN ×2 (17:30→18:45)
[2019-12-30] MEDS ORDERED: MORPHINE SULFATE 2 MG/ML SYR 1ML IV PRN (17:30)
[2019-12-30] MEDS: SODIUM CHLORIDE 0.9% 1000ML 1,000 ML IV SCH (17:49)
[2019-12-30] MEDS: ENOXAPARIN SOD INJ 40 MG/0.4 ML SYR SC SCH (17:54)
[2019-12-30 18:22] VITALS: BP 154/89
[2019-12-30] MEDS ORDERED: DICYCLOMINE HCL 10 MG CAP PO PRN (18:45)
[2019-12-30] MEDS ORDERED: ACETAMINOPHEN 325 MG TAB PO PRN (18:45)
[2019-12-30] MEDS ORDERED: ALBUTEROL/IPRATROPIUM 3 ML NEB NEB PRN (18:45)
[2019-12-30] MEDS ORDERED: HYDRALAZINE HCL 20 MG/ML VIAL IV PRN (18:45)
[2019-12-30] MEDS ORDERED: BUSPIRONE HCL 5 MG TAB PO PRN (18:45)
[2019-12-30 19:00] VITALS: BP 154/89
[2019-12-30] MEDS: MORPHINE SULFATE INJ 4 MG/ML INJ 1ML IV PRN ×2 (19:40→23:44)
[2019-12-30 20:00] VITALS: BP 154/89
[2019-12-30] MEDS: SALMETEROL/FLUTICASONE 100/50 INH SCH (20:15)
[2019-12-30] MEDS ORDERED: MELATONIN 3 MG TAB PO PRN (21:00)
--- NOTE | 2019-12-30 21:01 | NUR ---
spoke to skylar petty about elevated lactic, no new orders, repeat lactic in am.
[2019-12-30] MEDS: TRAZODONE HCL 50 MG TAB PO SCH (21:50)
[2019-12-30] MEDS: ACETAMINOPHEN/CODEINE 300MG - 30MG TAB PO PRN (21:50)
[2019-12-30] MEDS: PREGABALIN 50 MG CAP PO SCH (21:50)
[2019-12-30] MEDS ORDERED: PIPER-TAZ 3.375 GM / NS 50ML IV SCH (22:00)
[2019-12-31] VITALS (8 sets, daily range): BP systolic 126–172; BP diastolic 58–89
[2019-12-31] MEDS: PIPER-TAZ 3.375 GM 50 ML IV SCH ×4 (00:14→17:55)
[2019-12-31] MEDS: PANTOPRAZOLE 40 MG 10ML VIAL IV SCH ×2 (00:14→09:13)
[2019-12-31] MEDS: SODIUM CHLORIDE 0.9% 1000ML 1,000 ML IV SCH ×3 (00:23→17:56)
[2019-12-31 00:25] LABS: BILIRUBIN,URINE LARGE (NEGATIVE); CLARITY,URINE SL CLOUDY (CLEAR); COLOR,URINE ORANGE (YELLOW); KETONES,URINE 1+ (NEGATIVE); LEUKOCYTE ESTERASE ,URINE NEGATIVE (NEGATIVE); NITRITE,URINE NEGATIVE (NEGATIVE); PROTEIN,URINE DIPSTICK TRACE (NEGATIVE)
[2019-12-31] MEDS ORDERED: LORAZEPAM INJ 2 MG/ML VIAL IV PRN (00:30)
[2019-12-31 00:37] LABS: BACTERIA,URINE RARE /HPF; EPITHELIAL CELLS,URINE FEW /LPF; RBC,URINE 0-5 /HPF (0-5)
[2019-12-31] MEDS ORDERED: PIPER-TAZ 3.375 GM 50 ML IV SCH (01:00)
[2019-12-31] MEDS: MORPHINE SULFATE INJ 4 MG/ML INJ 1ML IV PRN (03:45)
[2019-12-31] MEDS ORDERED: LEVOTHYROXINE SODIUM 112 MCG TAB PO SCH (06:00)
--- NOTE | 2019-12-31 06:44 | NUR ---
spoke to answering service for dr casas routine consult.
--- NOTE | 2019-12-31 07:00 | NUR ---
BEDSIDE SHIFT REPORT RECEIVED FROM RETURN AGENT NURSE. PT DENIES NEEDS AT THIS TIME.
[2019-12-31 07:47] LABS: BASOPHILS % 0.1 % (0.0-1.0); HEMATOCRIT 44.3 % (34.2-44.1); HEMOGLOBIN 14.1 g/dL (12.0-16.0); LYMPHOCYTES # (AUTO) 1.5 (1.0-3.2); LYMPHOCYTES % 5.1 % (18.0-39.1); MEAN CORPUSCULAR HEMOGLOBIN 25.8 pg (28-32); MEAN CORPUSCULAR HGB CONC 31.8 g/dL (31-35); MEAN CORPUSCULAR VOLUME 81.1 fL (81-99); MONOCYTES # (AUTO) 2.7 (0.2-0.8); MONOCYTES % 9.5 % (4.4-11.3); NEUTROPHILS # (AUTO) 23.5 (2.1-6.9); NEUTROPHILS % 81.6 % (38.7-80.0); PLATELET COUNT 322 x10e3/uL (140-360); RED BLOOD COUNT 5.46 x10e6/uL (3.6-5.1); RED CELL DISTRIBUTION WIDTH 24.1 % (11.7-14.4)
[2019-12-31] MEDS: SALMETEROL/FLUTICASONE 100/50 INH SCH ×2 (07:50→19:48)
[2019-12-31 08:13] LABS: ALANINE AMINOTRANSFERASE 74 IU/L (0-55); ALBUMIN/GLOBULIN RATIO 0.5 (0.8-2.0); ALKALINE PHOSPHATASE 1401 IU/L (40-150); ANION GAP 16.8 mmol/L (8-16); BLOOD UREA NITROGEN 24 mg/dL (7-26); BUN/CREATININE RATIO 35 (6-25); CALCIUM 8.3 mg/dL (8.4-10.2); CARBON DIOXIDE 21 mmol/L (22-29); CHLORIDE 98 mmol/L (98-107); CREATININE, SERUM 0.68 mg/dL (0.57-1.11); EST GLOMERULAR FILTRATION RATE > 60 ML/MIN (60-); GLUCOSE 124 mg/dL (74-118); POTASSIUM 3.8 mmol/L (3.5-5.1); SODIUM 132 mmol/L (136-145)
[2019-12-31 08:31] LABS: LYMPHOCYTES % (MANUAL) 4 % (19-48); MONOCYTES % (MANUAL) 4 % (3.4-9.0); NEUTROPHILS % (MANUAL) 92 % (40-74)
[2019-12-31 08:32] LABS: ANISOCYTOSIS MODERATE; PLATELET ESTIMATE ADEQUATE
[2019-12-31 08:33] LABS: POLYCHROMASIA FEW
[2019-12-31 08:34] LABS: OVALOCYTES FEW; PLATELET MORPHOLOGY COMMENT FEW LARGE; TARGET CELLS FEW; TEAR DROP CELLS FEW
[2019-12-31 08:36] LABS: RBC MORPHOLOGY COMMENT NORMAL
[2019-12-31 08:37] LABS: PLATELET CLUMPS RARE
[2019-12-31 08:47] LABS: THYROID STIMULATING HORMONE 0.11 uIU/mL (0.350-4.940)
[2019-12-31] MEDS ORDERED: FAMOTIDINE 20 MG/2 ML VIAL IV SCH (09:00)
[2019-12-31] MEDS: DEPAKOTE ER 500MG TAB(ONCE DAILY) PO SCH ×2 (09:13→17:55)
[2019-12-31] MEDS: OXYBUTYNIN CHLORIDE 5 MG TAB PO SCH ×2 (09:13→17:55)
[2019-12-31] MEDS: DULOXETINE HCL 30 MG DELAYED RELEASE PO SCH ×2 (09:13→17:55)
[2019-12-31] MEDS: ASPIRIN 81 MG CHEW TAB PO SCH (09:13)
[2019-12-31] MEDS: FUROSEMIDE 40 MG TAB PO SCH ×2 (09:15→17:55)
[2019-12-31] MEDS: LACTOBACILLUS ACIDOPHILUS CAPSULE PO SCH ×2 (09:15→17:55)
[2019-12-31] MEDS: POTASSIUM CHLORIDE 20 MEQ TAB CR PO SCH (09:15)
[2019-12-31] MEDS: PREGABALIN 50 MG CAP PO SCH ×3 (09:15→21:00)
[2019-12-31] MEDS: ALLOPURINOL 100 MG TAB PO SCH (09:15)
--- NOTE | 2019-12-31 09:40 | NUR ---
Pt sleeping soundly and no family present. Will follow up as able. CHELSEA ARGUELLO Linen Clerk Spiritual Care Department O: [phone]
--- NOTE | 2019-12-31 09:45 | NUR ---
THIS NURSE SPOKE TO DR. CHAUDHARI IN NURSES STATION ABOUT PT'S LACTIC STILL AT 4.3. NO NEW ODERS OTHER THAN CONTINUE FLUIDS AND ABTX.
--- NOTE | 2019-12-31 09:46 | NUR ---
DATE OF CONSULTATION: 12/31/2019 REQUESTING PHYSICIAN: Brain Webber NP; Dr. White. CONSULTING PHYSICIAN: Norm Hart Hematology-Oncology Service. REASON FOR CONSULTATION: Evaluation and management of patient with pancreatic cancer, clinic patient. HISTORY OF PRESENTING ILLNESS: Ms. Casey is a very pleasant 74-year-old female with known history of COPD/ILD, hypothyroidism, anxiety/depression, hypertension, CVA, insomnia, obesity, obstructive sleep apnea, urinary incontine nce, CHF, hx of DVT, seizure disorder, and polyneuropathy who is my clinic patient recently diagnosed with stage 4 pancreatic cancer. Patient initially presented to the ED of [facility] in November 2019 with LUQ pain subsequently underwent CT scan on 11/23/2019 revealing 6.3 cm locally invasive pancreatic body/tail mass encasing the splenic vessels including the splenic vein with mild splenomegaly and perisplenic fluid. Upper abdominal and lower mediastinal metastatic adenopathy, left upper abdominal mesenteric carcinomatosis and numerous hepatic metastases. An L3 vertebral body sclerotic focus is likely osseous metastases. Patient also had elevated CA 19-9 at 6152. She subsequently underwent a biopsy of the liver lesion on 11/23/2019 which revealed adenocarcinoma, metastatic with compatible immunohistochemistry stains suggestive of pancreatobiliary primary being positive for CK 19 and CK 7. Patient called clinic yesterday unable to come in for her first cycle of chemotherapy due to weakness, diarrhea, and dehydration along worsening edema. She has now been admitted to [facility] for further workup for presumed sepsis with elevated lactic acid and leukocytosis possibly secondary to urinary tract infection and possible CHF exacerbation. Hematology/Oncology has been consulted to assist with management. Presently, the patient is lying comfortably, she appears lethargic. She is arousable complaining of diffuse abdominal pain, although when palpated worse in epigastric region. She appears NAD with anasarca. PAST MEDICAL HISTORY: 1. COPD/ILD. 2. Hypothyroidism. 3. Anxiety/Depression. 4. Chronic pain syndrome. 5. Neuropathy. 6. Recent diagnosis of pancreatic cancer. 7. Hypertension. 8. CVA. 9. Insomnia. 10. Obesity. 11. Urinary Incontinence. 12. DVT. 13. Seizure Disorder. 14. Obstructive Sleep Apnea. 15. Congestive Heart Failure. PAST SURGICAL HISTORY: Liver biopsy. FAMILY HISTORY: Positive for hypertension and diabetes mellitus. SOCIAL HISTORY: The patient denies smoking, alcohol use, or illicit drug use. ALLERGIES: NO KNOWN DRUG ALLERGIES. CURRENT MEDICATIONS: Reviewed as per electronic medical record. REVIEW OF SYSTEMS: A 14-point review of systems negative except as mentioned per history of presenting illness. PHYSICAL EXAMINATION: VITAL SIGNS: Reviewed as per electronic medical record. HEENT: PERRLA. Extraocular movements intact. Head is atraumatic and normocephalic. NECK: Supple. CV: S1 and S2 audible. RESPIRATORY: Decreased bilateral air entry. ABDOMEN: Positive bowel sounds. Soft. Distended. Diffuse TTP, worse in epigastric region. EXTREMITIES: Anasarca. NEURO: The patient is lethargic, arousable. LABORATORY DATA: Reviewed as per electronic medical record. ASSESSMENT AND PLAN: Ms. Casey is a very pleasant 74-year-old female with known history of COPD/ILD, hypothyroidism, anxiety/depression, hypertension, CVA, insomnia, obesity, obstructive sleep apnea, urinary incontine nce, CHF, hx of DVT, seizure disorder, and polyneuropathy who is my clinic patient recently diagnosed with stage 4 pancreatic cancer. Patient initially presented to the ED of [facility] in November 2019 with LUQ pain subsequently underwent CT scan on 11/23/2019 revealing 6.3 cm locally invasive pancreatic body/tail mass encasing the splenic vessels including the splenic vein with mild splenomegaly and perisplenic fluid. Upper abdominal and lower mediastinal metastatic adenopathy, left upper abdominal mesenteric carcinomatosis and numerous hepatic metastases. An L3 vertebral body sclerotic focus is likely osseous metastases. Patient also had elevated CA 19-9 at 6152. She subsequently underwent a biopsy of the liver lesion on 11/23/2019 which revealed adenocarcinoma, metastatic with compatible immunohistochemistry stains suggestive of pancreatobiliary primary being positive for CK 19 and CK 7. Patient called clinic yesterday unable to come in for her first cycle of chemotherapy due to weakness, diarrhea, and dehydration along worsening edema. She has now been admitted to [facility] for further workup for presumed sepsis with elevated lactic acid and leukocytosis possibly secondary to urinary tract infection and possible CHF exacerbation. Hematology/Oncology has been consulted to assist with management. 1. Metastatic Pancreatic Adenocarcinoma: CA 19-9 markedly elevated 6152 during last admission. Patient with known hepatic mets and L3 vertebral metastatic focus awaiting PETCT scan outpatient. Plan for PETCT scan outpatient. Patient is not a candidate for aggressive chemotherapy. CT abd/pelvis on 12/30/2019 with interval progression of diffuse hepatic mets and stable appearance of pancreatic mass with adjacent lymphadenopathy and fat stranding. Plan to start her on gemcitabine with 20% dose reduction which she was unable to start her first cycle on 12/30/2019. Supportive care for now. 2. Abdominal pain: Likely due to pancreatic mass. Patient also had diarrhea which appears to be improving. Aggressive pain control with Tylenol for mild pain, Tylenol #3 BID for moderate pain, and Morphine 4mg q4h PRN for severe pain only. Recommend hold medication for sedation or systolic BP < 90. Monitor. 3. Sepsis of unknown origin: Possibly secondary to urinary tract infection. Lactic acid trending up. UA negative for leuk esterase and nitrite with blood and urine culture pending. CXR with bilateral opacities likely atelectasis. On IV antibiotics. Afebrile. Leukocytosis trending up. Managed per primary team. 4. Elevated LFTs: Alk phos elevated concerning for GI vs bone origin. Will check GGT to differentiate. On CLD. GI consulted. 5. CHF: Diffuse anasarca. Echo pending. On Lasix. Managed per primary team. 6. DVT proph: Lovenox 40mg sq daily. Above plan discussed with Dr. Hart. Thank you for the consult. I will continue to be available. Please call with questions.
[2019-12-31] MEDS ORDERED: ONDANSETRON HCL 4 MG ORAL DISINTEGRATING TAB PO PRN (11:45)
--- NOTE | 2019-12-31 15:34 | Diagnostic Imaging Report ---
CT of the chest, without contrast, 12/31/2019. History: Pneumonia. Comparison: CT abdomen 12/30/2019. CT chest 11/19/2019. Technique: Multidetector CT scanning of the chest was performed from the level of the apices to the upper abdomen without contrast. Coronal and sagittal multiplanar reformations were obtained. RADIATION DOSE: Total DLP: 524 mGy*cm Dose modulation, iterative reconstruction, and/or weight based adjustment of the mA/kV was utilized to reduce the radiation dose to as low as reasonably achievable. Discussion: Evaluation is limited without IV contrast. Chest: The heart, aorta, and pulmonary vessels are normal in size. The thyroid is unremarkable. There is no gross evidence of adenopathy. Dilatation of the esophagus is again noted. Patchy ground glass and linear opacities are again seen throughout the right upper lobe and left lung. There is new right basilar consolidation with air bronchograms. There is no evidence of pleural effusion. Limited evaluation of the upper abdomen demonstrates multiple ill-defined hypodense masses throughout the liver as noted on prior CT. Bones and soft tissues: Degenerative changes are present throughout the thoracic spine. Surgical fusion hardware is present in the lower cervical spine. IMPRESSION: Interval development of right lower lobe consolidative pneumonia with persistence of underlying bilateral patchy opacities. Signed by: Dean Styles on 12/31/2019 3:31 PM
[2019-12-31] MEDS: ENOXAPARIN SOD INJ 40 MG/0.4 ML SYR SC SCH (17:55)
[2019-12-31] MEDS: PANTOPRAZOLE SOD 40 MG TABEC PO SCH (17:55)
[2019-12-31] MEDS ORDERED: SODIUM CHLORIDE 0.9% 1000ML 1,000 ML ONE (17:59)
[2019-12-31] MEDS ORDERED: AZITHROMYCIN 500MG/NS 250 ML 250 ML IV SCH (20:00)
[2019-12-31] MEDS: GUAIFENESIN 600 MG TAB PO SCH (20:00)
[2019-12-31] MEDS ORDERED: CEFTRIAXONE SOD 1 GM/NS 50 ML 50 ML IV SCH (21:00)
[2019-12-31] MEDS: TRAZODONE HCL 50 MG TAB PO SCH (21:00)
[2020-01-01] VITALS (8 sets, daily range): BP systolic 120–144; BP diastolic 60–88
[2020-01-01 05:13] LABS: BASOPHILS % 0.1 % (0.0-1.0); EOSINOPHILS # (AUTO) 0.1 (0.0-0.4); EOSINOPHILS % 0.4 % (0.0-6.0); HEMATOCRIT 40.9 % (34.2-44.1); HEMOGLOBIN 12.9 g/dL (12.0-16.0); LYMPHOCYTES # (AUTO) 1.5 (1.0-3.2); LYMPHOCYTES % 5.1 % (18.0-39.1); MEAN CORPUSCULAR HEMOGLOBIN 25.7 pg (28-32); MEAN CORPUSCULAR HGB CONC 31.5 g/dL (31-35); MEAN CORPUSCULAR VOLUME 81.5 fL (81-99); MONOCYTES # (AUTO) 2.1 (0.2-0.8); MONOCYTES % 7.1 % (4.4-11.3); NEUTROPHILS # (AUTO) 24.2 (2.1-6.9); NEUTROPHILS % 83.2 % (38.7-80.0); PLATELET COUNT 291 x10e3/uL (140-360); RED BLOOD COUNT 5.02 x10e6/uL (3.6-5.1); RED CELL DISTRIBUTION WIDTH 25.3 % (11.7-14.4)
[2020-01-01 05:38] LABS: ANION GAP 20.1 mmol/L (8-16); BLOOD UREA NITROGEN 28 mg/dL (7-26); BUN/CREATININE RATIO 37 (6-25); CALCIUM 8.3 mg/dL (8.4-10.2); CARBON DIOXIDE 22 mmol/L (22-29); CHLORIDE 96 mmol/L (98-107); CREATININE, SERUM 0.75 mg/dL (0.57-1.11); EST GLOMERULAR FILTRATION RATE > 60 ML/MIN (60-); GLUCOSE 125 mg/dL (74-118); MAGNESIUM 1.8 MG/DL (1.3-2.1); POTASSIUM 4.1 mmol/L (3.5-5.1); SODIUM 134 mmol/L (136-145)
[2020-01-01] MEDS: LEVOTHYROXINE SODIUM 88 MCG TAB PO SCH (05:52)
--- NOTE | 2020-01-01 06:41 | NUR ---
spoke to jenn petty about lactic acid 5.4, no new orders.
[2020-01-01] MEDS: SALMETEROL/FLUTICASONE 100/50 INH SCH (07:00)
[2020-01-01] MEDS: PANTOPRAZOLE SOD 40 MG TABEC PO SCH ×2 (07:30→15:33)
[2020-01-01] MEDS: ALLOPURINOL 100 MG TAB PO SCH (09:00)
[2020-01-01] MEDS: DEPAKOTE ER 500MG TAB(ONCE DAILY) PO SCH ×2 (09:00→15:33)
[2020-01-01] MEDS: POTASSIUM CHLORIDE 20 MEQ TAB CR PO SCH (09:00)
[2020-01-01] MEDS: FUROSEMIDE 40 MG TAB PO SCH (09:00)
[2020-01-01] MEDS: PREGABALIN 50 MG CAP PO SCH ×3 (09:00→21:36)
[2020-01-01] MEDS: LACTOBACILLUS ACIDOPHILUS CAPSULE PO SCH ×2 (09:00→15:34)
[2020-01-01] MEDS: DULOXETINE HCL 30 MG DELAYED RELEASE PO SCH ×2 (09:00→15:33)
[2020-01-01] MEDS: OXYBUTYNIN CHLORIDE 5 MG TAB PO SCH ×2 (09:00→15:33)
[2020-01-01] MEDS: GUAIFENESIN 600 MG TAB PO SCH ×2 (09:00→21:36)
[2020-01-01] MEDS: ASPIRIN 81 MG CHEW TAB PO SCH (09:00)
[2020-01-01 09:39] LABS: LYMPHOCYTES % (MANUAL) 7 % (19-48); MONOCYTES % (MANUAL) 12 % (3.4-9.0); NEUTROPHILS % (MANUAL) 81 % (40-74)
[2020-01-01 09:41] LABS: POLYCHROMASIA FEW
[2020-01-01 09:43] LABS: ANISOCYTOSIS SLIGHT; PLATELET ESTIMATE ADEQUATE; PLATELET MORPHOLOGY COMMENT NORMAL; RBC MORPHOLOGY COMMENT NORMAL
--- NOTE | 2020-01-01 10:09 | NUR ---
PATIENT UNABLE TO SWALLOW THIS MORNING. ATTEMPTED TO GIVE HER WATER AND SHE COUGHED AND WAS UNABLE TO SWALLOW. SHE STATES SHE IS UNABLE TO MOVE HER MOUTH VERY MUCH. SPEECH THERAPY HERE ON THE UNIT AND WILL DO A MODIFIED BARIUM SWALLOW
[2020-01-01] MEDS ORDERED: METOPROLOL TARTRATE INJ 1 MG/ML VIAL IV PRN (11:15)
[2020-01-01] MEDS: FUROSEMIDE INJ 10 MG/ML 4 ML VIAL IV SCH ×2 (12:31→21:36)
[2020-01-01] MEDS: POTASSIUM CHLORIDE 20MEQ/100ML 100 ML IV SCH (12:32)
--- NOTE | 2020-01-01 13:55 | NUR ---
WOUND CARE SCREENING PUP CONSULTATION. 74 YO FEMALE ADMITTED TO [facility] WITH DX OF UNSPECIFIED UPPER ABDOMINAL PAIN RODRIGUEZ 9 PUP STRICT STATUS AND INTERVENTIONS AND ALTERNATING PRESSURE MATTRESS LABS: WBC-29.12 HGB_12.9 GLUCOSE-125 MICRO: BLOOD CULTURE - GRAM + COCCI IN CHAINS URINE CULTURE PENDING SKIN ASSESSMENT COMPLETED, PT PRESENTS WITH A GLUTEALSACRAL FOLD SUPERFICIAL WOUND, RELATED TO MOISTURE. RECOMMENDATIONS: NURSING TO CONTINUE TO MAINTAIN STRICT PUP STATUS AND INTERVENTIONS AND ALTERNATING PRESSURE MATTRESS. NURSING TO CONTINUE TO ASSIST PATIENT OUT OF BED FOR MEALS AND MUCH TOLERATED. NURSING TO CONTINUE TO ASSIST PATIENT NEEDED WITH MEALS AND NUTRITIONAL SUPPLEMENTS TO ENSURE PROPER REQUIREMENTS FOR HEALING. NURSING TO CONTINUE TO OFFLOAD FEET AND HEELS NEEDED WITH PILLOW SUSPENSION WHEN IN BED. NURSING TO CLEAN GLUTEALSACRAL FOLD SUPERFICIAL WOUND WITH NORMAL SALINE, PAT DRY WITH 4X4 GAUZE, APPLY VENELEX AND APPLY ALLEVYN FOAM DAILY. NURSING TO CONSULT WOUND CARE NEEDED. Addendum: 01/01/20 at 1406 by Tereza Donis RN Amended: Links added.
[2020-01-01] MEDS ORDERED: MORPHINE SULFATE 2 MG/ML SYR 1ML IV PRN (14:00)
--- NOTE | 2020-01-01 14:41 | Diagnostic Imaging Report ---
CT BRAIN WO HISTORY: Altered mental status COMPARISON: Head CT 11/24/2019 and 06/29/2018 Technique: Noncontrast axial scans were obtained from skull base to the vertex. Coronal and sagittal reconstructions obtained from the axial data. One or more of the following dose reduction techniques were used: Automated exposure control, adjustment of the mA and/or kV according to patient size, and/or utilization of iterative reconstruction technique. DISCUSSION: Scalp/Skull: Unremarkable. Brain sulci: Mildly prominent. Ventricles: Compensatory dilatation. Extra-axial spaces: No masses or fluid collections. Carotid siphon calcifications are present. Parenchyma: Mild bilateral deep white matter hypodensity is likely chronic microvascular ischemic change. There is an old small cortical infarct in the right superior cerebellum. Otherwise, no masses, hemorrhage, or large vascular territory acute infarct. Dural sinuses: No abnormal densities. Sellar/Suprasellar region: Intact. Skull base: Intact. Incidental findings: Bilateral ocular lens replacement. IMPRESSION: 1. No acute intracranial abnormalities. 2. Old small cortical infarct in the right superior cerebellum. 3. Mild supratentorial chronic microvascular ischemic change. Generalized cerebral volume loss. Signed by: Dr. Mehul Rios M.D. on 01/01/2020 2:37 PM
--- NOTE | 2020-01-01 15:15 | Diagnostic Imaging Report ---
PROCEDURE: X-RAY MODIFIED BARIUM SWALLOW COMPARISON: None. INDICATION: Aspiration Radiation Details: Fluoroscopy time: 0.7 minutes Cumulative dose: 4.7 mGy DISCUSSION: Fluoroscopic examination was performed in conjunction with speech pathology during swallowing a variety of thin and thick liquid consistencies. Provided images demonstrate laryngeal penetration and aspiration. CONCLUSION: Modified barium swallow demonstrating laryngeal penetration and aspiration. Please refer to the speech pathology report for further details. Signed by: Guilherme Day MD on 01/01/2020 3:11 PM
[2020-01-01] MEDS: ENOXAPARIN SOD INJ 40 MG/0.4 ML SYR SC SCH (16:11)
--- NOTE | 2020-01-01 16:39 | Consultation ---
DATE OF CONSULTATION: 12/03/2019 REASON FOR CONSULTATION: Bacteremia, concerned about sepsis. HISTORY OF PRESENT ILLNESS: This patient who is a 74-year-old white female, who has underlying history of metastatic pancreatic adenocarcinoma, obesity, heart disease. The patient is being seen by Dr. Hart and Dr. Rojo. The patient comes into the emergency room with abdominal pain, indigestion. The patient was admitted. The patient who has history of hypertension, COPD, congestive heart failure, history of hyperlipidemia, seizure disorder, history of back surgery, cervical spine fusion, prolapse. There is no smoking, drug abuse, or alcohol abuse. The patient was admitted. I was asked to see her because white count is elevated. There was concern if she had sepsis. The patient is otherwise weak and lying in bed comfortably. LABORATORY DATA: Reviewed. PAST MEDICAL HISTORY: As above. PAST SURGICAL HISTORY: As above. ALLERGIES: NKA. SOCIAL HISTORY: There is no smoking, drug abuse, or alcohol abuse. FAMILY HISTORY: Noncontributory. REVIEW OF SYSTEMS: Besides the weakness, no other complaints. LABORATORY DATA: Reviewed as mentioned above. Blood cultures, gram-positive cocci. Her white count when she first came was 22.4, today 29.1, hemoglobin 14, platelet of 169, 81% segs. Sodium 134, potassium 4.1, creatinine 0.75. Lactic acid 4.3. Clostridium diff negative. The patient who had a CAT scan of abdomen and pelvis, diffuse hepatic metastases disease with ascites. Chest x-ray opacities likely atelectasis. The patient was currently on Lasix, ceftriaxone, azithromycin. PHYSICAL EXAMINATION: GENERAL: She is comfortable. VITAL SIGNS: Stable, currently afebrile. HEENT: She is not icteric. NECK: Supple. CHEST: Few crackles. COR: S1 and S2. ABDOMEN: Soft. IMPRESSION: Leukocytosis concerned if is due to her metastatic cancer with the hepatic pancreatic biliary cancer, elevated liver enzyme all due to mets. I am not so sure if she has infection per se. She has been on Zosyn, now on Rocephin with elevated lactic acid, which again could be from her malignancy was seem to be advanced. Agree with Rocephin. Can discontinue azithromycin. Prognosis is extremely poor. The patient is also the risk for recurrent aspiration pneumonia. We will treat for aspiration pneumonia with cefepime and Flagyl. Consider comfort care. We will discuss with the team. MD ROBIN Varela/BRENDAN /[id number]
[2020-01-01] MEDS: LACTULOSE SYRUP 20 GM/30 ML UDC PO SCH (17:59)
[2020-01-01] MEDS ORDERED: ACETAMINOPHEN 1000 MG/100 ML IV PRN (19:15)
--- NOTE | 2020-01-01 19:30 | NUR ---
Patient received asleep in bed. Arousable by tactile stimuli. No signs of pain or discomfort. Respirations even and non-labored on 2L NC. Fall precautions implemented. Call light within reach.
--- NOTE | 2020-01-01 19:45 | NUR ---
Dr. Ethan Salas here to see patient.
--- NOTE | 2020-01-01 20:07 | NUR ---
Midline in right arm removed with tip intact. Arm edematous and elevated on pillows.
--- NOTE | 2020-01-01 20:25 | Consultation ---
DATE OF CONSULTATION: 01/01/2020 Pulmonary Critical Care Consultation HISTORY OF PRESENT ILLNESS: The patient is a 74-year-old woman. She has a history of stage IV pancreatic carcinoma. She also has a history of COPD, hypertension, obstructive sleep apnea, and polyneuropathy. She was admitted to [facility] last month with abdominal pain that was subsequently attributed to her pancreatic cancer. She has been following up with Oncology as well as GI. The patient now returns with diarrhea, weakness, and abdominal pain. She was found to have a leukocytosis and received IV fluids along with antibiotics. A subsequent chest x-ray showed right lower lobe consolidation, suggestive of pneumonia. PAST SURGICAL HISTORY: 1. Status post C3 to C5 fusion. 2. Status post operative repair of rectal prolapse. 3. History of a humeral fracture. 4. History of prior EGD. 5. History of prior liver biopsy. PAST MEDICAL HISTORY: 1. COPD. 2. Neuropathy. 3. Hypertension. 4. CVA. 5. Obstructive sleep apnea. 6. Prior pancreatic carcinoma. ALLERGIES: THE PATIENT HAS NO KNOWN DRUG ALLERGIES. FAMILY HISTORY: Family history is positive for hypertension and diabetes. SOCIAL HISTORY: The patient is not an active smoker or drinker. REVIEW OF SYSTEMS: The patient is not complaining of any fevers. She does not complain of headache. She does have some confusion. She is not complaining of neck pain. She denies chest pain. She denies cough or trouble breathing. She does have some abdominal pain. She had some diarrhea. She has some leg swelling. PHYSICAL EXAMINATION: VITAL SIGNS: The blood pressure is 140/88 and the saturation is 96% on 2 L. Her pulse is 118. The patient is afebrile. HEENT: Shows no facial swelling or erythema. LYMPHATIC: Shows no submandibular, cervical, or supraclavicular adenopathy. CARDIAC: Reveals a regular rate and rhythm with normal S1 and S2. LUNGS: Auscultation of lungs reveals clear breath sounds bilaterally. There is no wheezing. ABDOMEN: Soft and nontender. There is no rebound or guarding. EXTREMITIES: Shows 1 to 2+ leg edema. NEUROLOGICAL: Shows some confusion. LABORATORY DATA: White blood cell count is 29.1 and the hemoglobin is 12.9. The platelet count is 291. There are 81% segs. BUN to creatinine ratio is 28 to 0.75 and the sodium is 134. The lactic acid is elevated at 5.4. Ammonia is 187. Urinalysis shows bilirubin, but no evidence of infection. CT scan of the chest shows a right lower lobe consolidation, suggestive of pneumonia. CT scan of the head shows no acute abnormalities. There is an old infarct in the superior cerebellum on the right. Modified barium swallow shows laryngeal penetration and aspiration. CT scan of the abdomen and pelvis shows diffuse metastatic disease in the liver as well as ascites and anasarca. There is also an invasive pancreatic mass. IMPRESSION: 1. Aspiration pneumonia with sepsis, present on admission. 2. Metastatic pancreatic cancer. 3. Chronic diastolic heart failure. 4. Hypertension. 5. Chronic obstructive pulmonary disease. 6. Prior seizure disorder. PLAN: 1. Continue current antibiotics for aspiration pneumonia. 2. The patient has received adequate fluid, but her lactic acid remains elevated probably related to her liver metastases. 3. Continue oxygen. 4. Pain control. 5. Await echocardiogram. 6. Prognosis remains poor. Bill Salas MD Carlos Alberto/MODL /[id number]
[2020-01-01] MEDS: TRAZODONE HCL 50 MG TAB PO SCH (21:00)
[2020-01-01] MEDS: CEFEPIME 1GM/NS 0.9% 50 ML 50 ML IV SCH (21:36)
[2020-01-01] MEDS ORDERED: CEFEPIME HCL 1 GM VIAL IV SCH (22:00)
[2020-01-01] MEDS: METRONIDAZOLE 500MG/NS 100ML 100 ML IV SCH (22:07)
[2020-01-02] VITALS (8 sets, daily range): BP systolic 123–158; BP diastolic 74–92
[2020-01-02] MEDS: POTASSIUM CHLORIDE 20MEQ/100ML 100 ML IV SCH ×2 (00:34→12:53)
[2020-01-02] MEDS: TRAZODONE HCL 50 MG TAB PO SCH ×2 (00:35→21:00)
[2020-01-02] MEDS: CEFEPIME 1GM/NS 0.9% 50 ML 50 ML IV SCH ×3 (05:00→21:00)
[2020-01-02] MEDS: METRONIDAZOLE 500MG/NS 100ML 100 ML IV SCH ×3 (06:00→22:30)
[2020-01-02] MEDS: LEVOTHYROXINE SODIUM 88 MCG TAB PO SCH (06:00)
[2020-01-02] MEDS: SALMETEROL/FLUTICASONE 100/50 INH SCH ×2 (06:11→21:15)
--- NOTE | 2020-01-02 08:45 | NUR ---
Received order for hospice eval. called pt's Weston Casey [phone]. He states he spoke with [employer] yesterday evening, but at this time is unsure of what he wants to do. States he can't take pt home because he can no longer care for her. States he does not have enough information regarding hospice to make a decision at this time. CM offered to have a hospice rep call him to answer any questions that he may have. Mr. Casey states he wants to speak with [employer] again to discuss prognosis, treatment plan. DAYNA Howell is here now and spoke with Mr. Casey at length on the phone. [facility] will call him back after she sees pt today and discuss plan.
[2020-01-02] MEDS: ALLOPURINOL 100 MG TAB PO SCH (10:14)
[2020-01-02] MEDS: GUAIFENESIN 600 MG TAB PO SCH ×2 (10:14→21:00)
[2020-01-02] MEDS: LACTOBACILLUS ACIDOPHILUS CAPSULE PO SCH ×2 (10:14→17:00)
[2020-01-02] MEDS: PREGABALIN 50 MG CAP PO SCH ×3 (10:14→21:00)
[2020-01-02] MEDS: LACTULOSE SYRUP 20 GM/30 ML UDC PO SCH (10:14)
[2020-01-02] MEDS: ASPIRIN 81 MG CHEW TAB PO SCH (10:15)
[2020-01-02] MEDS: OXYBUTYNIN CHLORIDE 5 MG TAB PO SCH ×2 (10:15→17:00)
[2020-01-02] MEDS: FUROSEMIDE INJ 10 MG/ML 4 ML VIAL IV SCH ×2 (10:15→21:00)
[2020-01-02] MEDS: DEPAKOTE ER 500MG TAB(ONCE DAILY) PO SCH ×2 (10:15→17:00)
[2020-01-02] MEDS: PANTOPRAZOLE SOD 40 MG TABEC PO SCH ×2 (10:15→16:30)
[2020-01-02] MEDS: DULOXETINE HCL 30 MG DELAYED RELEASE PO SCH ×2 (10:15→17:00)
--- NOTE | 2020-01-02 10:45 | NUR ---
pt code status changed to DNAR.
--- NOTE | 2020-01-02 11:30 | NUR ---
pt to be NPO at this time except medications
[2020-01-02] MEDS: ACETAMINOPHEN/CODEINE 300MG - 30MG TAB PO PRN (12:53)
[2020-01-02] MEDS: BALSAM PERU/CASTOR OIL 60 GM OINT...G. TP SCH (12:54)
--- NOTE | 2020-01-02 13:01 | NUR ---
Spoke with pt's Weston Casey to follow up on decision regarding hospice. States he doesn't know any hospice company, would like Cm to use a company that we use frequently and who takes pt's insurance. Choice given for [facility]. Choice letter placed in front of chart. Cm provided Mr. Casey with [facility] rep Rosario Bey's contact information. Informed him ALEX will send clinicals and have Rosario reach out to him to answer any questions he may have. Referral faxed to [phone] / P [phone].
--- NOTE | 2020-01-02 13:23 | NUR ---
ST NOTE: Order received for BSE, chart review completed. Chest CT from 01/01/20 negative, chest xray from 01/02/20 resulted stable bibasilar atelectasis with a few scattered RLL pulmonary nodules with no consolidation or ground glass opacities. Pt currently dx with breast CA and awaiting treatment per [employer]. Pt with leukocytosis and fevers, fever now controlled. Pt has hx of UTI. Pt droplet precaution. Pt tolerated breakfast with no difficulties per nursing. Will follow up on 01/04/20 with pt status and need for ST intervention. Handoff with AVANI Tinsley
--- NOTE | 2020-01-02 14:25 | NUR ---
Per Rosario with [facility]. She spoke with pt's . Will need to look into placement on Saturday.
[2020-01-02 15:18] LABS: ALANINE AMINOTRANSFERASE 87 IU/L (0-55); ALBUMIN 1.9 g/dL (3.5-5.0); ALBUMIN/GLOBULIN RATIO 0.5 (0.8-2.0); ALKALINE PHOSPHATASE 1175 IU/L (40-150); ANION GAP 18.5 mmol/L (8-16); BLOOD UREA NITROGEN 24 mg/dL (7-26); BUN/CREATININE RATIO 42 (6-25); CALCIUM 8.2 mg/dL (8.4-10.2); CARBON DIOXIDE 23 mmol/L (22-29); CHLORIDE 97 mmol/L (98-107); CREATININE, SERUM 0.57 mg/dL (0.57-1.11); EST GLOMERULAR FILTRATION RATE > 60 ML/MIN (60-); GLUCOSE 104 mg/dL (74-118); MAGNESIUM 1.8 MG/DL (1.3-2.1); POTASSIUM 4.5 mmol/L (3.5-5.1); SODIUM 134 mmol/L (136-145)
[2020-01-02] MEDS: ENOXAPARIN SOD INJ 40 MG/0.4 ML SYR SC SCH (17:00)
--- NOTE | 2020-01-02 17:07 | Progress Note ---
DATE: 01/02/2020 SUBJECTIVE: The patient complains of back pain with some abdominal pain. She still has some intermittent confusion. She does not have fevers. PHYSICAL EXAMINATION: VITAL SIGNS: Blood pressure is 135/85, saturation is 97% on 2 L. HEENT: Shows no facial swelling or erythema. CARDIAC: Reveals regular rate and rhythm with normal S1, S2. LUNGS: Auscultation of lungs shows clear breath sounds bilaterally. There is no wheezing. ABDOMEN: Soft, nontender. There is no rebound or guarding. EXTREMITIES: Show no leg edema or calf tenderness. There is no cyanosis or clubbing. SKIN: Shows no rashes. LABORATORY DATA: White blood cell count is still pending as are the other blood tests. IMPRESSION: 1. Aspiration pneumonia with sepsis, present on admission. 2. Wkwgp-hx-hlkhyzs diastolic heart failure. 3. Metastatic adenocarcinoma. PLAN: 1. Prognosis remains poor. 2. Await final culture results. 3. Continue antibiotics. 4. Pain control as needed. Bill Salas MD [facility]/MODL /[id number]
--- NOTE | 2020-01-02 17:12 | Progress Note ---
DATE: 01/02/2020 SUBJECTIVE: Ms. Casey is feeling okay today, but she continued to have pain all over. The patient is currently lying in bed comfortably. LABORATORY DATA: Reviewed. Blood cultures showed coag-negative Staph. Her white count is 29 yesterday, still pending from today. REVIEW OF SYSTEMS: She is just weak, hurting all over. PHYSICAL EXAMINATION: GENERAL: She is alert, comfortable. VITAL SIGNS: Stable, currently temperature 96.2. HEENT: She is not icteric. NECK: Supple. CHEST: Few rhonchi. COR: S1 and S2. No S3, S4, or murmur. ABDOMEN: Soft. Bowel sounds present. No tenderness. EXTREMITIES: No edema. SKIN: No rash. IMPRESSION: 1. Recurrent aspiration pneumonia. 2. Pancreatic cancer. 3. Sleep apnea. 4. History of cerebrovascular accident. 5. History of neuropathy. 6. History of humeral fracture. 7. History of liver biopsy. 8. Leukocytosis, probably due to infection, may be reactive due to her malignancy. She is currently on cefepime and metronidazole. Recheck CBC. Consider comfort care. Internal Medicine was going to discussed the case with Hematology/Oncology. We will follow. MD ROBIN Varela/BRENDAN /[id number]
[2020-01-02 18:01] LABS: BASOPHILS % 0.1 % (0.0-1.0); EOSINOPHILS # (AUTO) 0.1 (0.0-0.4); EOSINOPHILS % 0.2 % (0.0-6.0); HEMATOCRIT 39.5 % (34.2-44.1); HEMOGLOBIN 12.5 g/dL (12.0-16.0); LYMPHOCYTES # (AUTO) 1.3 (1.0-3.2); LYMPHOCYTES % 4.8 % (18.0-39.1); MEAN CORPUSCULAR HEMOGLOBIN 26.2 pg (28-32); MEAN CORPUSCULAR HGB CONC 31.6 g/dL (31-35); MEAN CORPUSCULAR VOLUME 82.8 fL (81-99); MONOCYTES # (AUTO) 1.8 (0.2-0.8); NEUTROPHILS # (AUTO) 22.2 (2.1-6.9); NEUTROPHILS % 84.7 % (38.7-80.0); PLATELET COUNT 231 x10e3/uL (140-360); RED BLOOD COUNT 4.77 x10e6/uL (3.6-5.1); RED CELL DISTRIBUTION WIDTH 25.4 % (11.7-14.4)
[2020-01-02 18:54] LABS: BAND NEUTROPHILS % (MANUAL) 5 %; LYMPHOCYTES % (MANUAL) 7 % (19-48); METAMYELOCYTES % (MANUAL) 1 % (0-0); MONOCYTES % (MANUAL) 9 % (3.4-9.0); MYELOCYTES % (MANUAL) 1 % (0-0); NEUTROPHILS % (MANUAL) 76 % (40-74); PLATELET ESTIMATE ADEQUATE; PLATELET MORPHOLOGY COMMENT NORMAL; RBC MORPHOLOGY COMMENT NORMAL
--- NOTE | 2020-01-02 19:48 | NUR ---
walking rounds complete, pt report handed to on coming nurse.,
--- NOTE | 2020-01-02 19:49 | NUR ---
Patient received sitting up in bed. AAO x 2. No signs of pain or discomfort. Tomas catheter draining dark mary urine. Safety measures implemented. Call light within reach.
[2020-01-03] VITALS (7 sets, daily range): BP systolic 131–141; BP diastolic 77–89
[2020-01-03] MEDS: POTASSIUM CHLORIDE 20MEQ/100ML 100 ML IV SCH ×2 (00:15→11:15)
[2020-01-03] MEDS ORDERED: PANTOPRAZOLE 40 MG 10ML VIAL IV STA (01:55)
--- NOTE | 2020-01-03 01:59 | NUR ---
Dr. Eddie Rojo here to see patient. New orders received to increase Morphine 1 mg to Morphine 2 mg IV Q4H and change Protonix 40 mg PO to Protonix 40 mg IV BID.
[2020-01-03] MEDS: MORPHINE SULFATE 2 MG/ML SYR 1ML IV PRN ×2 (04:56→22:54)
[2020-01-03] MEDS: CEFEPIME 1GM/NS 0.9% 50 ML 50 ML IV SCH ×3 (05:06→21:48)
--- NOTE | 2020-01-03 05:24 | Diagnostic Imaging Report ---
EXAM: Abdomen Radiograph 1 View INDICATION: NG tube placement, verify position COMPARISON: Abdominal CT 12/30/2019 FINDINGS: No abnormalities in the lower chest. Enteric tube courses into abdomen, tip in the left upper abdomen, likely within the gastric lumen. Normal volume of stool in the colon. No dilated loops of small bowel. Calcified splenic artery. No abnormal soft tissue masses. No pneumoperitoneum. No acute osseous abnormality. Mild degenerative changes in the lumbar spine and pelvis. IMPRESSION: Enteric tube courses into abdomen, tip in the left upper abdomen, likely within the gastric lumen. Signed by: Alfredo Chisholm DO on 01/03/2020 5:21 AM
[2020-01-03] MEDS: LEVOTHYROXINE SODIUM 88 MCG TAB PO SCH (06:00)
[2020-01-03] MEDS: METRONIDAZOLE 500MG/NS 100ML 100 ML IV SCH ×3 (06:00→22:30)
[2020-01-03] MEDS: SALMETEROL/FLUTICASONE 100/50 INH SCH ×2 (06:32→19:28)
--- NOTE | 2020-01-03 07:00 | NUR ---
Walking rounds done. Shift report given to oncoming nurse.
[2020-01-03 07:11] LABS: ANION GAP 18.3 mmol/L (8-16); BLOOD UREA NITROGEN 24 mg/dL (7-26); BUN/CREATININE RATIO 36 (6-25); CALCIUM 8.5 mg/dL (8.4-10.2); CARBON DIOXIDE 25 mmol/L (22-29); CHLORIDE 97 mmol/L (98-107); CREATININE, SERUM 0.66 mg/dL (0.57-1.11); EST GLOMERULAR FILTRATION RATE > 60 ML/MIN (60-); GLUCOSE 123 mg/dL (74-118); MAGNESIUM 1.8 MG/DL (1.3-2.1); POTASSIUM 4.3 mmol/L (3.5-5.1); SODIUM 136 mmol/L (136-145)
[2020-01-03 07:51] LABS: BASOPHILS % 0.1 % (0.0-1.0); EOSINOPHILS % 0.1 % (0.0-6.0); HEMATOCRIT 42.5 % (34.2-44.1); LYMPHOCYTES % 3.5 % (18.0-39.1); MEAN CORPUSCULAR HEMOGLOBIN 25.8 pg (28-32); MEAN CORPUSCULAR HGB CONC 30.6 g/dL (31-35); MEAN CORPUSCULAR VOLUME 84.5 fL (81-99); MONOCYTES # (AUTO) 2.3 (0.2-0.8); MONOCYTES % 7.9 % (4.4-11.3); NEUTROPHILS # (AUTO) 25.3 (2.1-6.9); NEUTROPHILS % 84.8 % (38.7-80.0); PLATELET COUNT 223 x10e3/uL (140-360); RED BLOOD COUNT 5.03 x10e6/uL (3.6-5.1); RED CELL DISTRIBUTION WIDTH 25.8 % (11.7-14.4)
--- NOTE | 2020-01-03 08:55 | NUR ---
Lynda Henley [employer] MACHINE O[employer]ATOR aware of abdomen xray results. "okay to use NG tube"
--- NOTE | 2020-01-03 09:00 | NUR ---
Osmolite 1.2 started via right NG tube at 30cc/hr with free water at 20cc/hr as ordered. Denies nausea. Abdomen soft
[2020-01-03] MEDS: ALLOPURINOL 100 MG TAB PO SCH (09:30)
[2020-01-03] MEDS: GUAIFENESIN 600 MG TAB PO SCH ×2 (09:30→21:48)
[2020-01-03] MEDS: OXYBUTYNIN CHLORIDE 5 MG TAB PO SCH ×2 (09:30→16:05)
[2020-01-03] MEDS: DEPAKOTE ER 500MG TAB(ONCE DAILY) PO SCH ×2 (09:30→16:05)
[2020-01-03] MEDS: PANTOPRAZOLE 40 MG 10ML VIAL IV SCH ×2 (09:30→16:05)
[2020-01-03] MEDS: ASPIRIN 81 MG CHEW TAB PO SCH (09:30)
[2020-01-03] MEDS: PREGABALIN 50 MG CAP PO SCH ×3 (09:30→21:48)
[2020-01-03] MEDS: ACETAMINOPHEN/CODEINE 300MG - 30MG TAB PO PRN ×2 (09:30→16:05)
[2020-01-03] MEDS: FUROSEMIDE INJ 10 MG/ML 4 ML VIAL IV SCH ×2 (09:30→21:00)
[2020-01-03] MEDS: LACTOBACILLUS ACIDOPHILUS CAPSULE PO SCH ×2 (09:30→16:05)
[2020-01-03] MEDS: DULOXETINE HCL 30 MG DELAYED RELEASE PO SCH ×2 (09:30→16:05)
[2020-01-03] MEDS: BALSAM PERU/CASTOR OIL 60 GM OINT...G. TP SCH (09:30)
[2020-01-03] MEDS: LACTULOSE SYRUP 20 GM/30 ML UDC PO SCH (09:30)
[2020-01-03 10:28] LABS: BAND NEUTROPHILS % (MANUAL) 3 %; LYMPHOCYTES % (MANUAL) 5 % (19-48); METAMYELOCYTES % (MANUAL) 1 % (0-0); MONOCYTES % (MANUAL) 7 % (3.4-9.0); MYELOCYTES % (MANUAL) 1 % (0-0); NEUTROPHILS % (MANUAL) 83 % (40-74)
--- NOTE | 2020-01-03 12:10 | Progress Note ---
DATE: 01/03/2020 SUBJECTIVE: The patient does not have fevers. She does say she is still having some pain and discomfort. PHYSICAL EXAMINATION: VITAL SIGNS: The patient is afebrile. The blood pressure is 132/89. Saturation is 98%. HEENT: Shows no facial swelling or erythema. CARDIAC: Reveals a regular rate and rhythm with normal S1, S2. LUNGS: Auscultation of lungs shows clear breath sounds bilaterally. There is no wheezing. ABDOMEN: Soft, nontender. There is no rebound or guarding. EXTREMITIES: Show no leg edema or calf tenderness. There is no cyanosis or clubbing. SKIN: Shows no rashes. IMPRESSION: 1. Recurrent aspiration pneumonia. 2. Pancreatic cancer. 3. Sleep apnea. 4. Cerebrovascular accident. 5. Neuropathy. 6. Ohzir-la-nqzmgum diastolic heart failure. PLAN: 1. Prognosis is poor. The patient is considering hospice. 2. Continue current antibiotics. 3. Continue current cardiac regimen. MD BENJA Quintana/BRENDAN /[id number]
[2020-01-03] MEDS: ENOXAPARIN SOD INJ 40 MG/0.4 ML SYR SC SCH (16:05)
--- NOTE | 2020-01-03 19:10 | NUR ---
Report given to oncoming nurse of patient's status. Resting in bed mid fowlers position. Osmolite 1.2 30cc/hr with free water 20cc/hr. No residual noted. Denies nausea. No s/s of acute distress noted. Side rails upx2, call light within reach, bed alarm on.
--- NOTE | 2020-01-03 19:18 | NUR ---
Patient received sitting up in bed. No acute distress noted. HOB elevated . Tube feeding infusing at 30 cc/hr. Tomas catheter draining dark mary urine. Bed locked and in lowest position. Bed rails up x 2. Patient instructed to call for assistance when needed. Call light within reach.
[2020-01-03] MEDS: TRAZODONE HCL 50 MG TAB PO SCH (21:48)
--- NOTE | 2020-01-03 22:00 | NUR ---
Tube feeding rate (Osmolite 1.2) increased from 30 cc/ hr to 40 cc/hr. Patient tolerating feeding well.
[2020-01-04] MEDS: POTASSIUM CHLORIDE 20MEQ/100ML 100 ML IV SCH ×2 (00:14→13:16)
[2020-01-04 00:20] VITALS: BP 142/78
--- NOTE | 2020-01-04 02:58 | NUR ---
Dr. Eddie Rojo here to see patient. New order received to increase Morphine 2 mg IV to Morphine 3 mg IV Q4H PRN.
[2020-01-04] MEDS: MORPHINE SULFATE 2 MG/ML SYR 1ML IV PRN (03:09)
[2020-01-04 04:12] VITALS: BP 128/92
[2020-01-04] MEDS: CEFEPIME 1GM/NS 0.9% 50 ML 50 ML IV SCH ×2 (05:00→14:00)
[2020-01-04 05:24] LABS: BASOPHILS % 0.1 % (0.0-1.0); EOSINOPHILS # (AUTO) 0.1 (0.0-0.4); EOSINOPHILS % 0.2 % (0.0-6.0); HEMATOCRIT 44.8 % (34.2-44.1); HEMOGLOBIN 13.7 g/dL (12.0-16.0); LYMPHOCYTES # (AUTO) 1.1 (1.0-3.2); LYMPHOCYTES % 3.8 % (18.0-39.1); MEAN CORPUSCULAR HEMOGLOBIN 26.2 pg (28-32); MEAN CORPUSCULAR HGB CONC 30.6 g/dL (31-35); MEAN CORPUSCULAR VOLUME 85.8 fL (81-99); MONOCYTES # (AUTO) 2.3 (0.2-0.8); MONOCYTES % 7.7 % (4.4-11.3); NEUTROPHILS % 83.1 % (38.7-80.0); PLATELET COUNT 160 x10e3/uL (140-360); RED BLOOD COUNT 5.22 x10e6/uL (3.6-5.1); RED CELL DISTRIBUTION WIDTH 26.6 % (11.7-14.4)
[2020-01-04 05:42] LABS: ANION GAP 20.9 mmol/L (8-16); BLOOD UREA NITROGEN 26 mg/dL (7-26); BUN/CREATININE RATIO 39 (6-25); CALCIUM 8.2 mg/dL (8.4-10.2); CARBON DIOXIDE 20 mmol/L (22-29); CHLORIDE 100 mmol/L (98-107); CREATININE, SERUM 0.67 mg/dL (0.57-1.11); EST GLOMERULAR FILTRATION RATE > 60 ML/MIN (60-); GLUCOSE 177 mg/dL (74-118); MAGNESIUM 1.9 MG/DL (1.3-2.1); POTASSIUM 4.9 mmol/L (3.5-5.1); SODIUM 136 mmol/L (136-145)
[2020-01-04] MEDS: MORPHINE SULFATE INJ 4 MG/ML INJ 1ML IV PRN ×2 (06:00→10:15)
[2020-01-04] MEDS: LEVOTHYROXINE SODIUM 88 MCG TAB PO SCH (06:07)
[2020-01-04] MEDS: METRONIDAZOLE 500MG/NS 100ML 100 ML IV SCH ×2 (06:07→15:00)
--- NOTE | 2020-01-04 07:00 | NUR ---
Patient resting comfortably. No acute distress noted. Shift report given to oncoming nurse.
--- NOTE | 2020-01-04 07:23 | NUR ---
ASSUMED CARE. PATIENT AWAKE AND ALERT. ACYANOTIC. RESTING IN BED. HOB ELEVATED 30 DEGREES. TUBE FEEDING VIA RIGHT NARE IN PROGRESS. NO DISTRESS NOTED.
[2020-01-04] MEDS: SALMETEROL/FLUTICASONE 100/50 INH SCH (08:00)
--- NOTE | 2020-01-04 08:24 | NUR ---
SPOKE WITH HOSPICE REP, SHE IS COMING TO LAY EYES ON PT AND SPEAK WITH HER TO DETERMINE BEST PLACEMENT. WILL CONTINUE TO FOLLOW.
[2020-01-04] MEDS: PREGABALIN 50 MG CAP PO SCH ×2 (08:51→15:00)
[2020-01-04] MEDS: OXYBUTYNIN CHLORIDE 5 MG TAB PO SCH ×2 (08:51→17:00)
[2020-01-04] MEDS: ASPIRIN 81 MG CHEW TAB PO SCH (08:51)
[2020-01-04] MEDS: ALLOPURINOL 100 MG TAB PO SCH (08:51)
[2020-01-04] MEDS: LACTULOSE SYRUP 20 GM/30 ML UDC PO SCH (08:51)
[2020-01-04] MEDS: DEPAKOTE ER 500MG TAB(ONCE DAILY) PO SCH ×2 (08:51→17:00)
[2020-01-04] MEDS: FUROSEMIDE INJ 10 MG/ML 4 ML VIAL IV SCH (08:51)
[2020-01-04] MEDS: PANTOPRAZOLE 40 MG 10ML VIAL IV SCH ×2 (08:51→16:24)
[2020-01-04] MEDS: LACTOBACILLUS ACIDOPHILUS CAPSULE PO SCH ×2 (08:51→17:00)
[2020-01-04] MEDS: GUAIFENESIN 600 MG TAB PO SCH (08:51)
[2020-01-04] MEDS: DULOXETINE HCL 30 MG DELAYED RELEASE PO SCH ×2 (08:51→17:00)
[2020-01-04 09:00] VITALS: BP 133/90
[2020-01-04 09:13] VITALS: BP 133/90
[2020-01-04 09:17] LABS: LYMPHOCYTES % (MANUAL) 3 % (19-48); MONOCYTES % (MANUAL) 4 % (3.4-9.0); MYELOCYTES % (MANUAL) 1 % (0-0); NEUTROPHILS % (MANUAL) 92 % (40-74)
[2020-01-04 09:19] LABS: POLYCHROMASIA FEW
[2020-01-04 09:20] LABS: PLATELET ESTIMATE ADEQUATE; PLATELET MORPHOLOGY COMMENT NORMAL; RBC MORPHOLOGY COMMENT NORMAL; TARGET CELLS FEW
[2020-01-04] MEDS: BALSAM PERU/CASTOR OIL 60 GM OINT...G. TP SCH (10:00)
--- NOTE | 2020-01-04 10:40 | NUR ---
ST Note: Spoke with RN. Pt meeting with hospice construction representative. NGT in place. Will f/u later today.
--- NOTE | 2020-01-04 11:16 | NUR ---
Nutrition Intervention Note RD Recommendation(s) for Physician: -TF recommendation via NGT: Osmolite at 10 ml/hr advance as tolerated to goal rate of 45 ml/hr with 30 m of water flushed every 4 hours (1296 kcal, 60 gram protein). -IVF management and additional flushes per MD. -ADAT to regular per MD, texture per speech if medically feasible. Plan of Care: RD following, monitoring for tolerance and adequacy. TF recs. Nutrition reason for involvement: (diet-TF) RD Assessment 01/03: 74 YOF admitted for upper ab pain with PMH listed below. The pt was seen resting in bed, TF was running at 40 ml/hr. No family at bedside and pt did not speak. Per MD note- possible hospice for the pt. Provided TF recs about and to nurse. There was no family at bedside to perform malnutrition assessment. Per MD note, prognosis is poor. Speech was scheduled for today. NGT in place. Pt was here in 2017 where she was 240 lbs as well as in Nov 2019, suggesting no recent significant weight loss. Will continue to monitor. Principal Problems/Diagnoses: ab pain PMH: 1. COPD/ILD. 2. Hypothyroidism. 3. Anxiety/Depression. 4. Chronic pain syndrome. 5. Neuropathy. 6. Recent diagnosis of pancreatic cancer. 7. Hypertension. 8. CVA. 9. Insomnia. 10. Obesity. 11. Urinary Incontinence. 12. DVT. 13. Seizure Disorder. 14. Obstructive Sleep Apnea. 15. Congestive Heart Failure. GI: LBM:01/01 Abd: soft, non tender, large, round Skin: no pressure ulcer recorded Labs: 01/03: Co2 20, Gluc 177, Ca 8.2 Meds: protonix, lactulose, lasix, depakote, lactobacillus, abx, synthroid, KCL Ht: 63 in Wt: 239 lbs BMI: 42.4 kg/m^2 IBW:115 lbs Malnutrition Evaluation (01/03) The patient does not meet criteria for a specified degree of malnutrition at this time. Will re-evaluate at follow-up as appropriate. Energy intake: -pt is on TF, unable appetite to assess prior to admission Weight loss: -none Fat loss: none Muscle loss: mild- temporal Nutrition Prescription (Diet Order): Osmolite 1.2 at 30 ml/hr increase by 10 ml every 12 hours as tolerated, start free water at 20 ml/hr Estimated Nutritional Needs: Calories: 1144-1300kcal/day (22-25 kcal/kg/day) Weight used : IBW (52 kg) Protein : 52-78protein/day (1.5-2 gram/kg/day ) Weight used: IBW Diet Adequacy: Meeting calorie needs, Meeting protein needs-at current rate of 40 ml/hr Diet Education Needs Assessment: Diet education not indicated, patient on temporary/transition diet. Nutrition Care Level: mod Nutrition Diagnosis: Inadequate energy intake related to medical condition as evidenced the pt being clear liquids/ NPO for 4 days and TF to meet needs. Goal: Patient will meet 75-100% of estimated needs by follow up Progress: (N/A) Interventions: -Composition, Rate, Route, IVF, Prescription medications, Collaboration with other providers Monitoring/Evaluation: -Total energy intake, Total protein intake, Formula/Solution, IVF, Prescription medication Signed: Faiza Huitron RD, NI
[2020-01-04 12:35] VITALS: BP 175/90
[2020-01-04] MEDS ORDERED: HYDROCODONE/APAP 10MG-325MG TAB PO PRN (13:15)
[2020-01-04] MEDS ORDERED: MORPHINE SULFATE INJ 4 MG/ML INJ 1ML IV PRN (13:15)
--- NOTE | 2020-01-04 13:30 | Progress Note ---
DATE: 01/03/2020 SUBJECTIVE: Ms. Casey is seen and examined on January 02. This is late entry. She has no complaints. She is just weak and hurting all over. REVIEW OF SYSTEMS: Otherwise unremarkable. PHYSICAL EXAMINATION: GENERAL: She is currently alert. VITAL SIGNS: Stable, afebrile. HEENT: Not icteric. NECK: Supple. CHEST: Clear. HEART: S1, S2. No S3, S4, or murmur. ABDOMEN: Soft. Bowel sounds present. No tenderness. EXTREMITIES: No edema. SKIN: No rash. IMPRESSION: 1. Pneumonia, recurrent aspiration. 2. Recurrent pancreatic cancer. 3. History cerebrovascular accident. From Infectious Disease point of view continue current IV antibiotic. Recommend comfort care. Plan on seven days of antibiotic. We will follow. MD ROBIN Varela/BRENDAN /[id number]
--- NOTE | 2020-01-04 15:10 | Progress Note ---
DATE: 01/04/2020 SUBJECTIVE: There are no new issues today. The patient still has some pain, although it is controlled. PHYSICAL EXAMINATION: VITAL SIGNS: Stable. HEENT: Shows no facial swelling or erythema. CARDIAC: Reveals regular rate and rhythm with normal S1 and S2. LUNGS: Auscultation of lungs reveals clear breath sounds bilaterally. There is no wheezing. ABDOMEN: Soft, nontender. There is no rebound or guarding. EXTREMITIES: Show no leg edema or calf tenderness. IMPRESSION: 1. Metastatic pancreatic cancer. 2. Aspiration pneumonia. 3. Sleep apnea. 4. Cerebrovascular accident. 5. Acute on chronic diastolic heart failure. PLAN: 1. The patient is awaiting transition to hospice. 2. Complete antibiotics. Bill Salas MD [facility]/MODL /[id number]
--- NOTE | 2020-01-04 15:24 | NUR ---
PER ASMITA AT [facility] WILL BE AT APPROX 6PM THIS EVENING.
--- NOTE | 2020-01-04 15:25 | NUR ---
PT TO GO TO [place] [facility].
--- NOTE | 2020-01-04 16:02 | NUR ---
REPORT CALLED TO CRISTIAN HERNANDEZ FROM [facility] AT APPROXIMATELY 4PM
[2020-01-04 16:19] VITALS: BP 162/102
[2020-01-04] MEDS ORDERED: FUROSEMIDE 40 MG TAB PO SCH (17:00)
[2020-01-04] MEDS: ENOXAPARIN SOD INJ 40 MG/0.4 ML SYR SC SCH (18:32)
--- NOTE | 2020-01-04 19:28 | NUR ---
REPORT GIVEN TO ONCOMING NURSE. PT AWAKE AND ALERT. ACYANOTIC. NO DISTRESS NOTED.
--- NOTE | 2020-01-05 20:36 | Discharge Summary ---
ADMISSION DIAGNOSES: 1. Severe acute abdominal pain. 2. Stage IV pancreatic cancer with metastases to the liver. 3. Sepsis, present on admission. 4. Possible urinary tract infection, present on admission. 5. Chronic diastolic congestive heart failure. 6. Hypertension with chronic diastolic congestive heart failure. 7. Chronic obstructive pulmonary disease without exacerbation. 8. Seizure disorder. 9. Depression and anxiety. 10. Hypothyroidism. 11. Overactive bladder. 12. Gastroesophageal reflux disease. 13. Esophagitis. 14. Gastritis. 15. Morbid obesity with a BMI of 42.5. DISCHARGE DIAGNOSES: 1. Severe acute abdominal pain. 2. Stage IV pancreatic cancer with metastases to the liver. 3. Sepsis, present on admission. 4. Possible urinary tract infection, present on admission. 5. Chronic diastolic congestive heart failure. 6. Hypertension with chronic diastolic congestive heart failure. 7. Chronic obstructive pulmonary disease without exacerbation. 8. Seizure disorder. 9. Depression and anxiety. 10. Hypothyroidism. 11. Overactive bladder. 12. Gastroesophageal reflux disease. 13. Esophagitis. 14. Gastritis. 15. Morbid obesity with a BMI of 42.5. 16. Aspiration pneumonia with sepsis, present on admission. 17. Rule out deep venous thrombosis. 18. Rule out Clostridium difficile. 19. Rule out urinary tract infection. HISTORY: Hypertension, chronic obstructive pulmonary disease, chronic diastolic congestive heart failure, cerebrovascular accident, hypothyroidism, seizure disorder, anxiety, gastroesophageal reflux disease, rheumatoid arthritis, neuropathy, grand mal seizures, bilateral lower extremity lymphedema, peripheral vascular disease, venous stasis, obstructive sleep apnea, depression, esophagitis, hearing loss. SURGICAL HISTORY: C3-C5 fusion, rectal prolapse surgery, humerus fracture surgery, feeding tube insertion and removal, contact lens implants. FAMILY HISTORY: Diabetes and blood pressure. SOCIAL HISTORY: Noncontributory. HOSPITAL COURSE: A 74-year-old female with known stage IV pancreatic cancer with mets to the liver, has had 4 days of explosive diarrhea with associated progressive weakness and abdominal pain. According to the , the patient is unable to transfer from the wheelchair, needs assistance and he is unable to care for her anymore at home. On admission, Echo was done that showed EF of 55% to 60%. Chest x-ray showed bibasilar opacities, likely atelectasis. CT of the abdomen and pelvis was done, which showed interval progression of diffuse hepatic metastatic disease, increased ascites, and anasarca. Unchanged appearance of the locally invasive pancreatic mass. She tried to find source of the sepsis. CT of the chest was done, which showed interval development of right lower lobe consolidative pneumonia with persistence of underlying bilateral patchy opacities. The patient then had an MBS, which showed laryngeal penetration and aspiration. The patient was kept n.p.o. per speech therapy recommendation and had an NG tube placed, and due to intermittent AMS CT of the brain was done that showed no acute abnormality. NG tube was placed and the patient was started on tube feeds. Per the patient and recommendation, ID was consulted for antibiotics. The patient's lactic acidosis and leukocytosis appear to be primarily from the pancreatic cancer. The patient's condition was discussed with and hospice evaluation was ordered. Per the patient and 's request, she will be discharged to a facility with hospice. The patient and understand discharge instructions and agreed to plan. The patient will discharge with chronic medicines and NG tube removed. Vital signs stable. The patient is afebrile. Dictated by Lynda Henley NP MD DAVID Jmiénez/MODL /[id number]
== END 2020-01-04 18:55 | disposition hospice, inpatient (51) | DRG 871 ==
LOC: ER 13:02 → ERHOLD 17:27 → MED/SURG2 18:04
PROVIDERS: ADMIT Internal Medicine; ATTEND Internal Medicine
PROC: 02HV33Z Insertion of Infusion Device into Superior Vena Cava, Percutaneous Approach (ICD-10-PCS; principal; 2019-12-31)
PROC: B548ZZA Ultrasonography of Superior Vena Cava, Guidance (ICD-10-PCS; 2019-12-31)
DX: A41.9 Sepsis, unspecified organism (principal); I50.33 Acute on chronic diastolic (congestive) heart failure; J69.0 Pneumonitis due to inhalation of food and vomit; C25.9 Malignant neoplasm of pancreas, unspecified; C78.7 Secondary malignant neoplasm of liver and intrahepatic bile duct; I50.32 Chronic diastolic (congestive) heart failure; C78.89 Secondary malignant neoplasm of other digestive organs; C79.51 Secondary malignant neoplasm of bone; Z68.41 Body mass index [BMI] 40.0-44.9, adult; I11.0 Hypertensive heart disease with heart failure; F41.8 Other specified anxiety disorders; E86.0 Dehydration; Z82.49 Family history of ischemic heart disease and other diseases of the circulatory system; G40.909 Epilepsy, unspecified, not intractable, without status epilepticus; F32.9 Major depressive disorder, single episode, unspecified; F41.9 Anxiety disorder, unspecified; N32.81 Overactive bladder; K21.9 Gastro-esophageal reflux disease without esophagitis; K29.70 Gastritis, unspecified, without bleeding; K20.9 Esophagitis, unspecified; J44.9 Chronic obstructive pulmonary disease, unspecified; E03.9 Hypothyroidism, unspecified; Z83.3 Family history of diabetes mellitus; E66.01 Morbid (severe) obesity due to excess calories; Z86.73 Personal history of transient ischemic attack (TIA), and cerebral infarction without residual deficits; R41.82 Altered mental status, unspecified
CPT/HCPCS: 36415; 51700; 70450; 71045; 71250; 74018; 74177; 74230; 80048; 80053; 81001; 82140; 82977; 83036; 83605; 83690; 83735; 84443; 84484; 85025; 87040; 87045; 87071; 87086; 87177; 87205; 87493; 93005; 93306; 93971; 94664; 97139; 99251; 99285; J0456; J0500; J0692; J0696; J1650; J1940; J2270; J2405; J2543; J3480; J7030; Q9967